=== PATIENT | female | born 1960 | race Caucasian/White ===

== ENCOUNTER 2017-02-06 17:41 | Observation (INO) | payer OTHER ==
[~2017-02-06] VITALS: Ht 167.6 cm; Wt 120.9 kg
[~2017-02-06 17:41] MED LIST: AMT10 PO; BNT/10 PO; CLON1TAB3 PO; DIPH-416 PO; ESCI10TA17 PO; PRLSR20 PO; PROP80TA2 PO; QUET-206 PO; RANI75TA7 PO; VERA120T15 PO
[2017-02-06] MEDS ORDERED: AMIT75TA2 PO (18:13)
[2017-02-06] MEDS ORDERED: ESCI1TAB10 PO (18:15)
[2017-02-06 18:17] LABS: BASO % 0.4 %; BASO ABS # 0.04 K/uL (0-0.2); COMPLETE YES; EOS % 2.5 %; HEMATOCRIT 40.5 % (37-47); IG% 0.2 %; LYMPH % 23.2 %; LYMPH ABS # 2.06 K/uL (1.2-3.4); MEAN CELL VOLUME 76.3 fL (80-100); MEAN CORPUSCULAR HEMOGLOBIN 23.4 pg (25-34); MEAN CORPUSCULAR HGB CONC 30.6 g/dl (32-36); MEAN PLATELET VOLUME 10.1 fL (7.4-10.4); NEUT % 63.7 %; PLATELET COUNT 455 K/uL (130-400); RED BLOOD COUNT 5.31 M/uL (4.2-5.4); WHITE BLOOD COUNT 8.89 K/uL (4.8-10.8)
[2017-02-06] MEDS ORDERED: INDSR160 PO (18:17)
[2017-02-06] MEDS ORDERED: QUET200T2 PO (18:19)
[2017-02-06] MEDS ORDERED: VERA180T PO (18:21)
[2017-02-06] MEDS ORDERED: PANT40TA2 PO (18:24)
[2017-02-06] MEDS ORDERED: ERGO500011 PO (18:24)
[2017-02-06] MEDS ORDERED: MULTTAB58 PO (18:27)
[2017-02-06 18:32] LABS: INR 0.9 (0.9-1.1); PARTIAL THROMBOPLASTIN RATIO 0.9
[2017-02-06 18:35] LABS: ALT/SGPT 21 U/L (12-78); AST/SGOT 15 U/L (15-37); BLOOD UREA NITROGEN 26 mg/dl (7-18); CARBON DIOXIDE 25 mmol/L (21-32); CHLORIDE 109 mmol/L (98-107); GLUCOSE 98 mg/dl (70-99); POTASSIUM 4.7 mmol/L (3.5-5.1); SODIUM 142 mmol/L (136-145)
--- NOTE | 2017-02-06 18:45 | DIAGNOSTIC IMAGING REPORT ---
CHEST ONE VIEW PORTABLE CLINICAL HISTORY: CHEST PAIN dyspnea COMPARISON STUDY: 09/15/2015 FINDINGS: The bones soft tissues and hemidiaphragms are normal. The cardiomediastinal silhouette is normal. The lungs are clear. The pulmonary vasculature is normal. IMPRESSION: Negative chest. Electronically signed by: Corey Jeong M.D. 02/06/2017 6:43 PM Dictated Date/Time: 02/06/2017 6:43 PM
[2017-02-06 18:46] LABS: ALKALINE PHOSPHATASE 161 U/L (45-117); THYROID STIMULATING HORMONE 0.955 uIu/ml (0.300-4.500)
[2017-02-06] MEDS ORDERED: ASPIRIN 81 MG CHEW PO STA (19:22)
--- NOTE | 2017-02-06 19:42 | EMERGENCY ROOM VISIT NOTE ---
History Report prepared by Jenna: Estela Mack Under the Supervision of: Dr. Vijay Barr M.D. First contact with patient: 17:45 Chief Complaint: SHORTNESS OF BREATH Stated Complaint: SOB Nursing Triage Summary: pt reports exertional sob since . + increased cough when lying down , reports hitting head 1 week ago and has had neck stiffness since that time History of Present Illness The patient is a 56 year old female who presents to the Emergency Room with complaints of worsening shortness of breath that started 2 days ago. The shortness of breath is worse with exertion. She is also experiencing a dry cough that is worse when lying down. She states that her muscles "feel like Jell -o." She denies fevers, hematochezia, and pain or swelling in her lower extremities. The patient states that she has a history of PVCs and has been experiencing increased palpitations recently. She denies any chest pain. The patient has a history of anxiety, but denies experiencing anything that has made her anxious recently. She denies any attempts to harm herself recently. She states that she has been taking her medications as prescribed and she has not missed any doses. The patient states that she hit the base of the right side of her head on a trellis one week ago. After hitting her head, the pain radiated down into her neck and into her right shoulder. Since then, she has been experiencing neck pain, neck stiffness, and bilateral shoulder pain. The patient denies any history of lung problems, including asthma. She states that she had a stroke at the age of 28, but denies any personal history of blood clots. The patient has a family history of heart disease. She states that her brother, who was very active and healthy, had a CO at the age of 50. The patient is post-menopausal and denies any chance of . The patient denies any history of thyroid problems, but states that she has not been tested for them recently. Source of History: patient Onset: 2 days ago Position: chest Quality: other (shortness of breath) Timing: worsening Associated Symptoms: + cough (dry ), + neck pain, + weakness (muscular, feel like Jell-O), No chest pain, No fevers, No hematochezia Note: palpitations, bilateral shoulder pain, neck stiffness, no pain or swelling in her lower extremities Review of Systems See HPI for pertinent positives & negatives. A total of 10 systems reviewed and were otherwise negative. Past Medical & Surgical Medical Problems: (1) Chest pain (2) Kidney stones (3) SOB (shortness of breath) (4) Stroke Old medical records were reviewed. Nurse's notes were reviewed and I agree with. Family History Cancer Diabetes mellitus Gallbladder disease Heart disease Hypertension Kidney disease Kidney stones Lung disease Social History Smoking Status: Never Smoker Alcohol Use: none Drug Use: none Marital Status: Housing Status: lives alone Current/Historical Medications Scheduled Amitriptyline Hcl (Elavil), 1 TAB PO HS Clonazepam (Klonopin), 1 MG PO QID Dicyclomine HCl (Dicyclomine HCl), 10 MG PO DAILY Ergocalciferol (Vitamin D 58855 Unit), 50,000 UNITS PO WK Escitalopram Oxalate (Lexapro), 20 MG PO DAILY Multiple Vitamin (Multivitamin), 1 TAB PO DAILY Pantoprazole (Pantoprazole Sodium), 40 MG PO QAM Propranolol Hcl (Inderal LA Cap), 160 MG PO DAILY Quetiapine Fumarate Xr (Seroquel Xr), 200 MG PO HS Verapamil Hcl (Calan Sr Ext Rel), 180 MG PO QAM Allergies Coded Allergies: Fluoxetine (Unverified Allergy, Unknown, HALLUCINATIONS, 02/06/17) Lorazepam (Verified Adverse Reaction, Mild, HALLUCINATIONS, 02/06/17) Physical Exam Vital Signs Date Time Temp Pulse Resp B/P Pulse Ox O2 Delivery O2 Flow Rate FiO2 02/06/17 19:46 63 17 97 02/06/17 19:33 66 16 138/81 96 02/06/17 19:33 138/81 02/06/17 19:16 65 21 95 02/06/17 18:46 64 17 96 02/06/17 18:41 68 18 131/71 95 02/06/17 18:34 66 02/06/17 18:16 97 Room Air 02/06/17 17:44 36.8 69 18 137/73 100 Room Air Physical Exam General: Well developed well nourished non-ill appearing middle-aged female in no acute distress, breathing comfortably on room air. Normal speech HEENT: Normal cephalic atraumatic. Pupils are equal round and reactive to light. Sclerae anicteric. Extraocular movements are intact. Oropharynx is pink with moist mucous membranes. No swelling of the mouth lips or tongue. Neck: Supple with a midline trachea. No meningeal signs or stiffness, no JVD or bruits. No Stridor. Chest: Clear to auscultation bilaterally. No wheezes or rhonchi. No increased work of breathing. Heart: regular rate and rhythm. Abdomen: Soft nontender, nondistended without rebound guarding or rigidity. Extremities: No cyanosis clubbing or edema. No calf tenderness or assymetry Spine/Back. Non tender to palpation. No CVA tenderness Skin: Good turgor without rashes. Neurologic exam: Cranial nerves two through 12 are intact. Motor and sensation are intact and symmetrical throughout. Psych: Normal thought process and affect. Intermittently teary eyed when talking about her brother. Medical Decision & Procedures ER Provider Diagnostic Interpretation: X-ray results as stated below per interpretation by me and the radiologist: CHEST ONE VIEW PORTABLE FINDINGS: The bones soft tissues and hemidiaphragms are normal. The cardiomediastinal silhouette is normal. The lungs are clear. The pulmonary vasculature is normal. IMPRESSION: Negative chest. Electronically signed by: Corey Jeong M.D. 02/06/2017 6:43 PM Dictated Date/Time: 02/06/2017 6:43 PM Laboratory Results 02/06/17 18:05 Red Blood Count 5.31, Mean Corpuscular Volume 76.3, Mean Corpuscular Hemoglobin 23.4, Mean Corpuscular Hemoglobin Concent 30.6, Mean Platelet Volume 10.1, Neutrophils (%) (Auto) 63.7, Lymphocytes (%) (Auto) 23.2, Monocytes (%) (Auto) 10.0, Eosinophils (%) (Auto) 2.5, Basophils (%) (Auto) 0.4, Neutrophils # (Auto ) 5.66, Lymphocytes # (Auto) 2.06, Monocytes # (Auto) 0.89, Eosinophils # (Auto ) 0.22, Basophils # (Auto) 0.04 02/06/17 18:05 Test 02/06/17 18:05 02/06/17 18:13 White Blood Count 8.89 K/uL (4.8-10.8) Red Blood Count 5.31 M/uL (4.2-5.4) Hemoglobin 12.4 g/dL (12.0-16.0) Hematocrit 40.5 % (37-47) Mean Corpuscular Volume 76.3 fL (80-100) Mean Corpuscular Hemoglobin 23.4 pg (25-34) Mean Corpuscular Hemoglobin Concent 30.6 g/dl (32-36) Platelet Count 455 K/uL (130-400) Mean Platelet Volume 10.1 fL (7.4-10.4) Neutrophils (%) (Auto) 63.7 % Lymphocytes (%) (Auto) 23.2 % Monocytes (%) (Auto) 10.0 % Eosinophils (%) (Auto) 2.5 % Basophils (%) (Auto) 0.4 % Neutrophils # (Auto) 5.66 K/uL (1.4-6.5) Lymphocytes # (Auto) 2.06 K/uL (1.2-3.4) Monocytes # (Auto) 0.89 K/uL (0.11-0.59) Eosinophils # (Auto) 0.22 K/uL (0-0.5) Basophils # (Auto) 0.04 K/uL (0-0.2) RDW Standard Deviation 49.1 fL (36.4-46.3) RDW Coefficient of Variation 17.6 % (11.5-14.5) Immature Granulocyte % (Auto) 0.2 % Immature Granulocyte # (Auto) 0.02 K/uL (0.00-0.02) Prothrombin Time 10.0 SECONDS (9.0-12.0) Prothromb Time International Ratio 0.9 (0.9-1.1) Activated Partial Thromboplast Time 24.4 SECONDS (21.0-31.0) Partial Thromboplastin Ratio 0.9 Anion Gap 8.0 mmol/L (3-11) Est Creatinine Clear Calc Drug Dose 48.1 ml/min Estimated GFR () 41.6 Estimated GFR (Non- 35.9 BUN/Creatinine Ratio 16.0 (10-20) Calcium Level 8.0 mg/dl (8.5-10.1) Magnesium Level 2.7 mg/dl (1.8-2.4) Total Bilirubin 0.4 mg/dl (0.2-1) Direct Bilirubin 0.1 mg/dl (0-0.2) Aspartate Amino Transf (AST/SGOT) 15 U/L (15-37) Alanine Aminotransferase (ALT/SGPT) 21 U/L (12-78) Alkaline Phosphatase 161 U/L (45-117) Total Creatine Kinase 74 U/L (26-192) Creatine Kinase MB < 0.5 ng/ml (0.5-3.6) Creatine Kinase MB Ratio (0-3.0) Total Protein 7.7 gm/dl (6.4-8.2) Albumin 3.9 gm/dl (3.4-5.0) Lipase 139 U/L (73-393) Thyroid Stimulating Hormone (TSH) 0.955 uIu/ml (0.300-4.500) Lyme Disease IgG Antibody NEG (NEG) Bedside D-Dimer 384 ng/mlFEU (0-450) Bedside Troponin I 0.000 ng/ml (0-0.045) EN-Dcq-L-Type Natriuretic Peptide 77 pg/ml (0-900) Laboratory studies as stated above per my review. Medications Administered Medications (Trade) Dose Ordered Sig/Kat Route Start Time Stop Time Status Last Admin Dose Admin Aspirin (Aspirin Chew) 324 mg NOW STAT PO 02/06/17 19:22 02/06/17 19:23 DC 02/06/17 19:33 324 MG ECG Indication: SOB/dyspnea Rate (beats per minute): 64 Rhythm: normal sinus Findings: T-wave inversion (Anterior, Lateral) Comparison ECG Date: 04/28/2009 Change: T-wave inversions are new ED Course 1750: Past medical records reviewed. The patient was evaluated in room B3, and a complete history and physical examination were performed. 1917: Upon reevaluation, the patient is resting comfortably. I discussed the results and treatment plan with the patient. She verbalized agreement of the treatment plan. The patient will be evaluated for further management. 1921: Ordered Aspirin 324 mg PO 1930: Discussed patient's case with Dr. Truman Rivera. The patient will be evaluated for further treatment and disposition. Medical Decision Differentials include, but are not limited to; acute coronary syndrome, arrhythmia, congestive heart failure, PE, pneumonia, anxiety. This patient comes in as described above. She was placed in room B3. She is here for treatment and evaluation of shortness of breath. She has not felt well. She felt very tired over last couple days. He has had chest discomfort. IV access established, EKG and chest x-ray was obtained. Multiple blood testing was obtained. Chest x-ray was unremarkable. EKG does have some T-wave inversions anteriorly inferiorly which are new compared her old EKG. She has had some baseline renal insufficiency with a creatinine of 1.6. Her troponin and CK-MB were not elevated. Her d-dimer is within normal limits and a low pretest probably said he makes PE highly unlikely. Her brother did have an CO at age 51. In light of this, I do think she needs to be admitted to rule out a cardiac event. I have consulted Dr. Gross who saw the patient the ER will admit her for these measures. Consults Time Called: 1923 Consulting Physician: Dr. Truman Rivera Returned Call: 1930 Discussed patient's case with Dr. Truman Rivera. The patient will be evaluated for further treatment and disposition. Impression Primary Impression: Precordial chest pain Additional Impression: Shortness of breath Scribe Attestation The scribe's documentation has been prepared under my direction and personally reviewed by me in its entirety. I confirm that the note above accurately reflects all work, treatment, procedures, and medical decision making performed by me. Departure Information Dispostion Being Evaluated By Hospitalist Referrals Carol Douglass M.D. (PCP) Patient Instructions [facility] Problem Qualifiers
[2017-02-06] MEDS ORDERED: IV FLUIDS COMPLETED PRN (20:45)
[2017-02-06] MEDS ORDERED: SODIUM CHLORIDE 0.45% 1000ML 1,000 ML IV SCH (21:00)
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
--- NOTE | 2017-02-06 21:15 | DIAGNOSTIC IMAGING REPORT ---
CERVICAL SPINE CT CT DOSE: 1071.19 mGy.cm HISTORY: Pain neck pain TECHNIQUE: Multiaxial CT images of the cervical spine were performed and reformatted in the sagittal and coronal plane without the use of contrast. COMPARISON: None. FINDINGS: No fractures. No subluxation. Prevertebral soft tissues and the C1-C2 interval are intact. No pneumothorax. Mild degenerative intervertebral disc change C4-C6. Vertebral body stature is normal. Mild anterior and posterior osteophytic change primarily at C4-C5 and C5-C6. IMPRESSION: Moderate degenerative change of the mid cervical region. No acute bony abnormality. Posterior osteophytic change and narrowing of the left neural foramina at C4-C5 and to lesser extent C5-C6 Electronically signed by: Corey Jeong M.D. 02/06/2017 9:14 PM Dictated Date/Time: 02/06/2017 9:11 PM
[2017-02-06 21:30] VITALS: BP 118/53; PULSE 63; TEMP 37; O2SAT 97; Ht 167.6 cm; Wt 120.9 kg
[2017-02-06] MEDS ORDERED: SODIUM CHLORIDE 0.45% 1000ML 1,000 ML IV ONE (21:30)
[2017-02-06] MEDS ORDERED: ONDANSETRON INJ 2 MG/ML 2 ML VIAL IV PRN (21:30)
[2017-02-06] MEDS ORDERED: HYDROmorphone INJ 1 MG/ML SYR IV PRN (21:30)
[2017-02-06] MEDS ORDERED: NITROGLYCERIN 0.4 MG SL PER TAB CHARGE SL PRN (21:30)
[2017-02-06] MEDS ORDERED: ACETAMINOPHEN 325 MG TAB PO PRN (21:30)
[2017-02-06] MEDS ORDERED: TRAMADOL HCL 50 MG TAB PO PRN (21:30)
[2017-02-06] MEDS ORDERED: CLONAZEPAM 1 MG TAB PO ONE ×2 (22:00→23:27)
[2017-02-06] MEDS ORDERED: PANTOprazole SOD 40 MG TAB PO ONE (22:00)
[2017-02-06] MEDS ORDERED: AMITRIPTYLINE HCL 25 MG TAB PO SCH (22:00)
[2017-02-06] MEDS ORDERED: QUETIAPINE FUMARATE 200 MG TABCR PO SCH (22:00)
[2017-02-06] MEDS: HEPARIN SOD 5000 UNIT/0.5 ML CARP SQ SCH (23:04)
[2017-02-07 00:10] VITALS: BP 111/74; PULSE 58; TEMP 36.8; O2SAT 97
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
[2017-02-07 03:44] VITALS: BP 104/62; PULSE 61; TEMP 36.6; O2SAT 93
[2017-02-07] MEDS: HEPARIN SOD 5000 UNIT/0.5 ML CARP SQ SCH ×2 (05:51→14:54)
[2017-02-07 06:03] LABS: BASO % 0.5 %; BASO ABS # 0.03 K/uL (0-0.2); COMPLETE YES; EOS % 2.8 %; HEMATOCRIT 36.1 % (37-47); IG% 0.2 %; LYMPH % 35.8 %; LYMPH ABS # 2.16 K/uL (1.2-3.4); MEAN CELL VOLUME 76.6 fL (80-100); MEAN CORPUSCULAR HEMOGLOBIN 22.9 pg (25-34); MEAN CORPUSCULAR HGB CONC 29.9 g/dl (32-36); MEAN PLATELET VOLUME 9.6 fL (7.4-10.4); MONO % 9.3 %; NEUT % 51.4 %; PLATELET COUNT 332 K/uL (130-400); RED BLOOD COUNT 4.71 M/uL (4.2-5.4); WHITE BLOOD COUNT 6.04 K/uL (4.8-10.8)
[2017-02-07 06:20] LABS: ALT/SGPT 17 U/L (12-78); AST/SGOT 13 U/L (15-37); BLOOD UREA NITROGEN 25 mg/dl (7-18); BUN/CREATININE RATIO 15.4 (10-20); CALCIUM 8.2 mg/dl (8.5-10.1); CARBON DIOXIDE 27 mmol/L (21-32); CHLORIDE 110 mmol/L (98-107); GLUCOSE 92 mg/dl (70-99); POTASSIUM 4.6 mmol/L (3.5-5.1); SODIUM 144 mmol/L (136-145)
[2017-02-07 06:25] LABS: ALKALINE PHOSPHATASE 134 U/L (45-117)
[2017-02-07 07:29] VITALS: BP 100/63; PULSE 62; TEMP 36.6; O2SAT 93
[2017-02-07] MEDS ORDERED: PANTOprazole SOD 40 MG TAB PO SCH (09:00)
[2017-02-07] MEDS ORDERED: ESCITALOPRAM OXALATE 20 MG TAB PO SCH (09:00)
[2017-02-07] MEDS ORDERED: VERAPAMIL HCL 180 MG TABCR PO SCH (09:00)
[2017-02-07] MEDS ORDERED: PROPRANOLOL HCL 80 MG LA CAP PO SCH (09:00)
[2017-02-07] MEDS ORDERED: CLONAZEPAM 1 MG TAB PO SCH ×3 (09:00→21:00)
[2017-02-07] MEDS ORDERED: MULTIVITAMIN TAB PO SCH (09:00)
--- NOTE | 2017-02-07 09:35 | ECHOCARDIOGRAM REPORT ---
*NOTICE TO RECEIVING CONSTITUTION PARTY AGENCY This information is strictly Confidential and protected under [place] law. [place] law prohibits you from making any further disclosure of this information unless further disclosure is expressly permitted by the written consent of the person to whom it pertains or is authorized by law. A general authorization for the release of medical or other information is not sufficient for this purpose. Hospital accepts no responsibility if the information is made available to any other person, INCLUDING THE PATIENT. Interpretation Summary * Name: HEYDI GOMEZ Study Date: 02/07/2017 06:58 AM BP: 104/62 mmHg * Patient Location: C.2T\S\S232\S\1 HR: 60 * : 1960 (M/d/yyyy) Gender: Female Height: 66 in * Age: 56 yrs Ethnicity: CA Weight: 226 lb * Ordering Physician: Isiah Laughlin * Referring Physician: Self, Referred * Performed By: Isiah Haywood RDCS * * Reason For Study: Chest pain * BSA: 2.1 m2 * -- Conclusions -- * Normal LV chamber size with mild concentric LVH. * Normal LV systolic function, EF 60-65%. * No segmental left ventricular wall motion abnormalities are noted. * Grade II diastolic dysfunction. * Aortic valve sclerosis mild, without significant aortic valvular stenosis. Procedure Details * A complete two-dimensional transthoracic echocardiogram was performed (2D, M-mode, Doppler and color flow Doppler). * The study was technically adequate. Left Ventricle * The left ventricle is normal in size. * There is mild concentric left ventricular hypertrophy. * Left ventricular systolic function is normal. * No segmental left ventricular wall motion abnormalities are noted. * Ejection Fraction = 60-65%. * The left ventricular wall motion is normal. Right Ventricle * The right ventricular cavity size is normal (basal dimension <4.2 cm in right ventricular apical 4-chamber view). * The right ventricular systolic function is normal as assessed by tricuspid annular plane systolic excursion (TAPSE) (normal >1.5 cm). Atria * The left atrium is mildly dilated. * Right atrial size is normal. * No ASD detected; PFO is not assessed. Mitral Valve * The mitral valve is normal in structure and function. Tricuspid Valve * The tricuspid valve is normal in structure and function. Aortic Valve * The aortic valve is trileaflet. * Aortic valve sclerosis mild, without significant aortic valvular stenosis. * There is no significant aortic regurgitation. Pulmonic Valve * The pulmonary valve is not well seen, but the Doppler examination is normal without significant regurgitation or stenosis. Great Vessels * The aortic root and proximal ascending aorta are normal sized. Pericardium/Pleural * Trivial apical pericardial effusion without hemodynamic compromise. Fat pad present. Left Ventricular Diastolic Function * Diastolic dysfunction, Grade II (pseudonormalization pattern). MMode 2D Measurements and Calculations IVSd 1.3 cm IVSs 1.7 cm LVIDd 4.5 cm LVIDs 2.9 cm LVPWd 1.3 cm LVPWs 1.7 cm IVS/LVPW 0.99 FS 36.1 % EDV(Teich) 93.0 ml ESV(Teich) 31.7 ml EF(Teich) 65.9 % EDV(cubed) 91.8 ml ESV(cubed) 23.9 ml EF(cubed) 74.0 % % IVS thick 35.5 % % LVPW thick 29.3 % LV mass(C)d 219.3 grams LV mass(C)dI 104.1 grams/m\S\2 LV mass(C)s 186.8 grams LV mass(C)sI 88.6 grams/m\S\2 SV(Teich) 61.3 ml SI(Teich) 29.1 ml/m\S\2 SV(cubed) 67.9 ml SI(cubed) 32.2 ml/m\S\2 EPSS 0.76 cm Ao root diam 2.9 cm Ao root area 6.7 cm\S\2 ACS 1.9 cm LA dimension 4.5 cm asc Aorta Diam 3.2 cm LA/Ao 1.5 LVOT diam 2.0 cm LVOT area 3.2 cm\S\2 LVAd ap4 17.4 cm\S\2 LVLd ap4 6.8 cm EDV(MOD-sp4) 37.0 ml LVAs ap4 8.7 cm\S\2 LVLs ap4 5.5 cm ESV(MOD-sp4) 12.0 ml EF(MOD-sp4) 67.6 % LVAd ap2 17.9 cm\S\2 LVLd ap2 6.3 cm EDV(MOD-sp2) 43.0 ml LVAs ap2 10.2 cm\S\2 LVLs ap2 5.6 cm ESV(MOD-sp2) 16.0 ml EF(MOD-sp2) 62.8 % SV(MOD-sp4) 25.0 ml SI(MOD-sp4) 11.9 ml/m\S\2 SV(MOD-sp2) 27.0 ml SI(MOD-sp2) 12.8 ml/m\S\2 Doppler Measurements and Calculations MV E max kristel 69.1 cm/sec MV A max kristel 65.6 cm/sec MV E/A 1.1 MV dec time 0.20 sec Ao V2 max 130.9 cm/sec Ao max PG 6.9 mmHg Ao max PG (full) 2.3 mmHg KANNAN(V,A) 2.6 cm\S\2 KANNAN(V,D) 2.6 cm\S\2 LV V1 max PG 4.6 mmHg LV V1 max 106.7 cm/sec PA V2 max 83.1 cm/sec PA max PG 2.8 mmHg
[2017-02-07 11:14] VITALS: BP 108/62; PULSE 62; TEMP 36.9; O2SAT 95
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
[2017-02-07 15:18] VITALS: BP 123/69; PULSE 58; TEMP 37; O2SAT 97
[2017-02-07 15:28] VITALS: BP_SYST 114; BP_SYST 116; BP_DIAS 72; BP_DIAS 79
[2017-02-07] MEDS ORDERED: VERA120C2 PO (15:35)
--- NOTE | 2017-02-07 15:38 | Discharge Instructions ---
Discharge Instructions Date of Service February 07, 2017. Admission Reason for Admission: Chest Pain; Sob Discharge Discharge Diagnosis / Problem: Weakness Discharge Goals Goal(s): Prevent Disease Progression Activity Recommendations Activity Limitations: per Instructions/Follow-up section . Instructions / Follow-Up Instructions / Follow-Up Please adjust to new dose of Verapamil and take all medications as instructed. You have a follow-up appointment with Dr. Douglass set for , 02/11 @ 11:20 for follow-up from this hospitalization. It may be prudent to see a Voice Studies Director as outpatient to readdress the palpitation issues you are having. Please bring all paperwork with you from discharge. It was a pleasure taking care of you! Call if you have any questions or problems. You can reach a [facility] hospitalist on duty at [facility] 24 hours a day by calling [phone]. Take care of yourself. Mell Sahu, [facility] Hospitalist Current Hospital Diet Patient's current hospital diet: Regular Diet Discharge Diet Recommended Diet: Regular Diet Pending Studies Studies pending at discharge: no Medical Emergencies . Who to Call and When: Medical Emergencies: If at any time you feel your situation is an emergency, please call 911 immediately. . Non-Emergent Contact Non-Emergency issues call your: Primary Care Provider . . "Provider Documentation" section prepared by Mell Sahu. . VTE Core Measure Inpt VTE Proph given/why not?: Unfractionated heparin SQ
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
== END 2017-02-07 17:00 | disposition home or self-care (01) ==
LOC: ENRESERVTM → ENRESERVDT → C.EDB 17:41 → C.2T 19:52
PROVIDERS: ADMIT Hospitalist; ATTEND Hospitalist
DX: R53.1 Weakness (principal); R06.02 Shortness of breath; F32.9 Major depressive disorder, single episode, unspecified; E66.01 Morbid (severe) obesity due to excess calories; E55.9 Vitamin D deficiency, unspecified; M50.30 Other cervical disc degeneration, unspecified cervical region; I12.9 Hypertensive chronic kidney disease with stage 1 through stage 4 chronic kidney disease, or unspecified chronic kidney disease; N18.3 Chronic kidney disease, stage 3 (moderate); F41.9 Anxiety disorder, unspecified; D64.89 Other specified anemias; Z98.84 Bariatric surgery status; Z86.73 Personal history of transient ischemic attack (TIA), and cerebral infarction without residual deficits; Z80.9 Family history of malignant neoplasm, unspecified; Z83.3 Family history of diabetes mellitus; Z82.49 Family history of ischemic heart disease and other diseases of the circulatory system; Z84.1 Family history of disorders of kidney and ureter; Z83.6 Family history of other diseases of the respiratory system

== ENCOUNTER 2022-08-05 11:57 | Inpatient (IN) ==
[2022-08-05 14:19] LABS: Basophils # (auto) 0.04 K/uL (0-0.2); Basophils % (auto) 0.3 %; Eosinophils # (auto) 0.04 K/uL (0-0.50); Eosinophils % (auto) 0.3 %; Hemoglobin 12.2 g/dl (12.0-16.0); Immature Granulocytes # (auto) 0.04 K/uL (0.00-0.02); Immature Granulocytes % (auto) 0.3 %; Lymphocytes # (auto) 0.68 K/uL (1.2-3.4); Lymphocytes % (auto) 5.5 %; Mean Corpuscular Hemoglobin 24.6 pg (25.0-34.0); Mean Corpuscular Hgb Conc 31.3 g/dL (32.0-36.0); Mean Corpuscular Volume 78.6 fL (80.0-100.0); Mean Platelet Volume 9.4 fL (9.4-12.3); Monocytes % (auto) 8.1 %; Neutrophils # (auto) 10.55 K/uL (1.4-6.5); Neutrophils % (auto) 85.5 %; Platelet Count 292 K/uL (130-400); RDW Coefficient of Variation 15.2 % (11.5-14.5); RDW Standard Deviation 42.6 fL (36.4-46.3); Red Blood Count 4.96 M/uL (3.93-5.22); White Blood Count 12.35 K/ul (4.8-10.8)
[2022-08-05 14:42] LABS: Albumin Globulin Ratio 1.3 (0.9-2); Albumin Level 3.9 gm/dl (3.4-5.0); BUN Creatinine Ratio 10.7 (10-20); Bilirubin,Total 1.2 mg/dl (0.2-1.0); Calcium 8.9 mg/dl (8.5-10.1); Creatinine Clr Calc Pharmacy 63.7 ml/min; Est GFR (African American) 51.2 ml/min; Est GFR (Non-African American) 44.1 ml/min; Potassium 4.3 mmol/L (3.5-5.1); Total Protein 6.9 gm/dl (6.0-8.3)
[2022-08-05] MEDS ORDERED: SODIUM CHLORIDE 0.9% 1000ML 1,000 ML IV ONE (14:55)
[2022-08-05] MEDS ORDERED: ONDANSETRON INJ 2 MG/ML 2 ML VIAL IV STA (14:55)
[2022-08-05] MEDS ORDERED: ACETAMINOPHEN 325 MG TAB PO STA (14:55)
--- NOTE | 2022-08-05 14:58 | Emergency Department Note ---
Impression & Plan Viral URI, Shortness of breath, Abdominal pain, Abnormal ECG, Vomiting ED Provider Note NAME: HEYDI GOMEZ AGE: 61 SEX: F : 1960 ARRIVES VIA: Walk-In INFORMANT: Patient ED PROVIDER(S): Frankie Dominguez DO CHIEF COMPLAINT: cough vomiting HPI: Patient is a 61-year-old female who presents ER with a past medical history of PVCs, PACs, morbid obesity who presents to the ER for symptoms that started this past Wednesday. She admits to cough, congestion, and runny nose. She admits to feeling hot and cold. No recorded fevers. She has right upper quadra nt abdominal pain only with coughing. She denies any chest pain or shortness of breath. She also admits to being dizzy over the past 24 hours. Only present with movement of the head. No weakness or numbness in the arms or legs. Vomiting is present mainly when she is tries to drink something. Does also admit to diffuse myalgias and arthralgias. ROS: See above HPI for pertinent positives & negatives. A total of 10 systems reviewed and were otherwise negative. PAST MEDICAL HISTORY:See Below PAST SURGICAL HISTORY:See Below FAMILY HISTORY:See Below SOCIAL HISTORY:See Below HOME MEDICATIONS:See Below ALLERGIES:See Below VITALS:See Below PHYSICAL EXAMINATION: GENERAL: Sitting up in bed, alert, disheveled, morbidly obese, slightly ill- appearing EYE EXAM: normal conjunctiva. PERRL and with a disconjugate gaze which is old per patient with the left eye OROPHARYNX: no exudate, no erythema, lips, buccal mucosa, and tongue normal and mucous membranes are moist NECK: supple, no nuchal rigidity, no adenopathy, non-tender LUNGS: Clear to auscultation. Normal chest wall mechanics HEART: no murmurs, S1 normal and S2 normal ABDOMEN: abdomen soft, mild tenderness in right upper quadrant, normo-active bowel sounds, no masses, no rebound or guarding. UPPER EXTREMITIES: upper extremities are grossly normal. LOWER EXTREMITIES: No pitting edema. NEURO EXAM: Normal sensorium, cranial nerves II-XII intact, normal speech, no weakness of arms, no weakness of legs. No drift. Finger to nose intact. Gross sensation intact. Ambulates without difficulty. MEDICAL DECISION MAKING: Patient is a 61-year-old female who presents to the ER for the above stated complaint. IV was established blood work was obtained. Labs show mild leukocytosis 12,000. No significant anemia. BMP with T bili at 1.2. LFTs were unremarkable. Lipase is normal. UA was contaminated. Influenza COVID and RSV were negative. CT abdomen pelvis and head were negative. Chest x-ray unremarka ble. She is otherwise neurologically intact. EKG shows new T wave inversion in comparison to 2017. Troponin was added on as I called and discussed with the lab as it was not initially done. Still pending upon admission. Patient was given IV fluids and Zofran. She was updated bedside. I do favor the majority of his symptoms are likely related to a viral upper respiratory infection. Still not keeping anything down while in the ER. Did discuss with the hospitalist for further observation. Triage Nursing notes reviewed. Limited review of prior medical records performed Vital Signs: reviewed and remarkable for febrile Differential diagnosis: Differential diagnosis includes etiologies such as sepsis, UTI, pneumonia, metabolic, electrolyte abnormalities, cardiac sources, intracerebral event, toxicologic, neurological, as well as others were entertained. ER treatment provided: See below Diagnostics interpreted by me: ECG: Sinus rhythm rate of 79 Normal axis No PVCs T wave inversion V1 through V6 QTC 428 T wave changes are new from 2017 Cardiac Monitoring: An order was placed for continuous cardiac monitoring. The monitor shows a rate of 80 with sinus rhythm. Laboratory studies: As stated above and show below. Imaging studies: CT head was negative CT abdomen pelvis is unremarkable Portable AP upright 1 view of the chest unremarkable Consultation(s): Discussed with Helene for further evaluation Procedures: none Critical Care: None Past Med/Surg History Medical History (Updated 08/05/22 @ 18:38 by Franike Dominguez DO) Diabetes Per records Last Hgb A1C 6.4 per 10/30/20 PCP note. Diet controlled KATHARINE (generalized anxiety disorder) Hx of supraventricular tachycardia Hyperlipidemia Kidney stones MDD (major depressive disorder) Migraine Morbid obesity PVC (premature ventricular contraction) Stroke Around 1989- residual mild weakness on right side. Surgical History (Updated 08/05/22 @ 17:00 by Maggy Urbina PA-C) History of arthroscopy of left shoulder History of x 2 Hx of arthroscopy of right knee Hx of dilation and curettage x 2 Hx of gastric bypass Family History (Updated 08/05/22 @ 16:59 by Maggy Urbina PA-C) Other Cancer Diabetes Dyslipidemia Heart disease Hypertension Social History Smoking Status: Never smoker Second Hand Exposure: No; Hx Alcohol Use: No Hx Substance Use: No Preferred Language: Yemeni Communication Ability: Effective Inside Wireman Required: No Beliefs That Will Affect Care: None Current Living Situation: Alone Feels Safe at Home: Yes Assistive Devices: None Allergies Allergies Allergy/AdvReac Type Severity Reaction Status Date / Time potassium AdvReac Severe Cardiac Verified 08/05/22 16:27 issues fluoxetine AdvReac Intermediate Hallucinati Verified 08/05/22 16:27 ons lorazepam AdvReac Intermediate Hallucinati Verified 08/05/22 16:27 ons Home Meds Home Medications Medication Instructions Recorded Confirmed atorvastatin 10 mg tablet 10 mg PO HS 05/09/19 08/05/22 ergocalciferol (vitamin D2) 1,250 50,000 unit PO WK 05/09/19 08/05/22 mcg (50,000 unit) capsule (Vitamin D2) escitalopram oxalate 20 mg tablet 20 mg PO HS 05/09/19 08/05/22 metoprolol succinate 50 mg 50 mg PO HS 05/09/19 08/05/22 tablet,extended release 24 hr quetiapine 200 mg tablet 200 mg PO HS 05/09/19 08/05/22 verapamil 120 mg 24 hr 120 mg PO HS 05/09/19 08/05/22 capsule,extended release gabapentin 300 mg capsule 300 mg PO HS 08/05/22 08/05/22 melatonin 10 mg tablet 10 mg PO HS PRN Sleep 08/05/22 08/05/22 Results & Data (ED) Vital Signs Vital Signs - 24 hr 08/05/22 12:30 08/05/22 14:47 08/05/22 15:15 Temperature 36.8 C 38 C H 37.9 C H Temperature Source Temporal Artery Scan Oral Oral Pulse Rate 89 Pulse Rate [Right Brachial] 80 Pulse Rate from SpO2 Sensor Respiratory Rate 18 17 Respiratory Effort / Characteristics Non-Labored Spontaneous Respiratory Depth Normal Respiratory Pattern Regular Blood Pressure 150/65 H Blood Pressure [Right Arm] 148/91 H Blood Pressure Mean 93 Blood Pressure Mean [Right Arm] 110 Pulse Oximetry 94 96 Oxygen Delivery Method Room Air Room Air Sepsis Recent Fever Within 48 Hours No Sepsis New/Unexplained Change in Mental Status No Sepsis Action Taken by Nursing No Action Required 08/05/22 16:05 08/05/22 16:30 08/05/22 17:00 Temperature 37.1 C Temperature Source Oral Pulse Rate 69 Pulse Rate [Right Brachial] 70 Pulse Rate from SpO2 Sensor 69 Respiratory Rate 22 17 Respiratory Effort / Characteristics Respiratory Depth Respiratory Pattern Blood Pressure 108/60 Blood Pressure [Right Arm] 120/68 Blood Pressure Mean 76 Blood Pressure Mean [Right Arm] 85 Pulse Oximetry 96 94 Oxygen Delivery Method Room Air Sepsis Recent Fever Within 48 Hours Sepsis New/Unexplained Change in Mental Status Sepsis Action Taken by Nursing 08/05/22 17:00 08/05/22 17:30 08/05/22 18:00 Temperature Temperature Source Pulse Rate 69 69 Pulse Rate [Right Brachial] Pulse Rate from SpO2 Sensor 69 67 Respiratory Rate 15 21 Respiratory Effort / Characteristics Respiratory Depth Respiratory Pattern Blood Pressure 127/53 L Blood Pressure [Right Arm] Blood Pressure Mean 77 Blood Pressure Mean [Right Arm] Pulse Oximetry 96 97 Oxygen Delivery Method Sepsis Recent Fever Within 48 Hours Sepsis New/Unexplained Change in Mental Status Sepsis Action Taken by Nursing 08/05/22 18:00 08/05/22 18:30 Temperature Temperature Source Pulse Rate 74 65 Pulse Rate [Right Brachial] Pulse Rate from SpO2 Sensor 68 66 Respiratory Rate 15 17 Respiratory Effort / Characteristics Respiratory Depth Respiratory Pattern Blood Pressure Blood Pressure [Right Arm] Blood Pressure Mean Blood Pressure Mean [Right Arm] Pulse Oximetry 96 96 Oxygen Delivery Method Room Air Sepsis Recent Fever Within 48 Hours Sepsis New/Unexplained Change in Mental Status Sepsis Action Taken by Nursing Laboratory Data Result diagrams: 08/05/22 14:05 08/05/22 14:05 Lab Results 08/05/22 08/05/22 08/05/22 Range/Units 14:05 14:05 15:20 WBC 12.35 H (4.8-10.8) K/ul RBC 4.96 (3.93-5.22) M/uL Hgb 12.2 (12.0-16.0) g/dl Hct 39.0 (34.1-44.9) % MCV 78.6 L (80.0-100.0) fL MCH 24.6 L (25.0-34.0) pg MCHC 31.3 L (32.0-36.0) g/dL RDW Std Deviation 42.6 (36.4-46.3) fL RDW Coeff of Rebecca 15.2 H (11.5-14.5) % Plt Count 292 (130-400) K/uL MPV 9.4 (9.4-12.3) fL Immature Gran % (Auto) 0.3 % Neut % (Auto) 85.5 % Lymph % (Auto) 5.5 % Tripp % (Auto) 8.1 % Eos % (Auto) 0.3 % Baso % (Auto) 0.3 % Neut # (Auto) 10.55 H (1.4-6.5) K/uL Lymph # (Auto) 0.68 L (1.2-3.4) K/uL Tripp # (Auto) 1.00 H (0.24-0.82) K/uL Eos # (Auto) 0.04 (0-0.50) K/uL Baso # (Auto) 0.04 (0-0.2) K/uL Immature Gran # (Auto) 0.04 H (0.00-0.02) K/uL Sodium 136 (136-145) mmol/L Potassium 4.3 (3.5-5.1) mmol/L Chloride 104 (98-107) mmol/L Carbon Dioxide 23 (21-32) mmol/L Anion Gap 9 (3-11) BUN 14 (6-23) mg/dl Creatinine 1.31 H (0.6-1.2) mg/dl Est Cr Clr Drug Dosing 63.7 ml/min Est GFR ( Amer) 51.2 ml/min Est GFR (Non-Af Amer) 44.1 ml/min BUN/Creatinine Ratio 10.7 (10-20) Glucose 141 H (70-99(Fasting)) mg/dl Calcium 8.9 (8.5-10.1) mg/dl Total Bilirubin 1.2 H (0.2-1.0) mg/dl AST 12 L (13-39) U/L ALT 14 (7-52) U/L Alkaline Phosphatase 84 (34-104) U/L Total Protein 6.9 (6.0-8.3) gm/dl Albumin 3.9 (3.4-5.0) gm/dl Globulin 3.0 (2.5-4.0) gm/dl Albumin/Globulin Ratio 1.3 (0.9-2) Lipase 11 (11-82) U/L Urine Color Urine Appearance (Clear) Urine pH (4.5-7.5) Ur Specific [place] (1.000-1.030) Urine Protein (Negative) Urine Glucose (UA) (Negative) Urine Ketones (Negative) Urine Blood (Negative) Urine Nitrite (Negative) Urine Bilirubin (Negative) Urine Urobilinogen (Negative) Ur Leukocyte Esterase (Negative) Urine WBC (Auto) (0-5) /hpf Urine RBC (Auto) (0-4) /hpf U Hyaline Cast (Auto) (0-5) /lpf U Epithel Cells (Auto) (0-5) /lpf Urine Bacteria (Auto) (Negative) SARS-CoV-2 (PCR) NEGATIVE (Negative) Influenza Type A (PCR) Negative (Neg) Influenza Type B (PCR) Negative (Neg) RSV (RT-PCR) Negative (Neg) 08/05/22 Range/Units 15:20 WBC (4.8-10.8) K/ul RBC (3.93-5.22) M/uL Hgb (12.0-16.0) g/dl Hct (34.1-44.9) % MCV (80.0-100.0) fL MCH (25.0-34.0) pg MCHC (32.0-36.0) g/dL RDW Std Deviation (36.4-46.3) fL RDW Coeff of Rebecca (11.5-14.5) % Plt Count (130-400) K/uL MPV (9.4-12.3) fL Immature Gran % (Auto) % Neut % (Auto) % Lymph % (Auto) % Tripp % (Auto) % Eos % (Auto) % Baso % (Auto) % Neut # (Auto) (1.4-6.5) K/uL Lymph # (Auto) (1.2-3.4) K/uL Tripp # (Auto) (0.24-0.82) K/uL Eos # (Auto) (0-0.50) K/uL Baso # (Auto) (0-0.2) K/uL Immature Gran # (Auto) (0.00-0.02) K/uL Sodium (136-145) mmol/L Potassium (3.5-5.1) mmol/L Chloride (98-107) mmol/L Carbon Dioxide (21-32) mmol/L Anion Gap (3-11) BUN (6-23) mg/dl Creatinine (0.6-1.2) mg/dl Est Cr Clr Drug Dosing ml/min Est GFR ( Amer) ml/min Est GFR (Non-Af Amer) ml/min BUN/Creatinine Ratio (10-20) Glucose (70-99(Fasting)) mg/dl Calcium (8.5-10.1) mg/dl Total Bilirubin (0.2-1.0) mg/dl AST (13-39) U/L ALT (7-52) U/L Alkaline Phosphatase (34-104) U/L Total Protein (6.0-8.3) gm/dl Albumin (3.4-5.0) gm/dl Globulin (2.5-4.0) gm/dl Albumin/Globulin Ratio (0.9-2) Lipase (11-82) U/L Urine Color Yellow Urine Appearance Clear (Clear) Urine pH 5.5 (4.5-7.5) Ur Specific [place] 1.021 (1.000-1.030) Urine Protein 1+ H (Negative) Urine Glucose (UA) Negative (Negative) Urine Ketones 1+ H (Negative) Urine Blood Negative (Negative) Urine Nitrite Negative (Negative) Urine Bilirubin Negative (Negative) Urine Urobilinogen Negative (Negative) Ur Leukocyte Esterase 1+ H (Negative) Urine WBC (Auto) 5-10 H (0-5) /hpf Urine RBC (Auto) 0-4 (0-4) /hpf U Hyaline Cast (Auto) 1-5 (0-5) /lpf U Epithel Cells (Auto) >30 H (0-5) /lpf Urine Bacteria (Auto) 1+ H (Negative) SARS-CoV-2 (PCR) (Negative) Influenza Type A (PCR) (Neg) Influenza Type B (PCR) (Neg) RSV (RT-PCR) (Neg) Administered Medications Discontinued Medications Acetaminophen (Acetaminophen 325 Mg Tab) 650 mg PO NOW STA Stop: 08/05/22 14:56 Last Admin: 08/05/22 15:16 Dose: 650 mg Documented By: KARINA Sodium Chloride (Nss 1000ml) 1,000 mls @ 999 mls/hr IV .Q1H1M ONE Stop: 08/05/22 15:55 Last Admin: 08/05/22 15:18 Dose: 999 mls/hr Documented By: KARINA Ioversol (Optiray 350 100ml) 81 ml IV ONCE ONE Stop: 08/05/22 15:39 Last Admin: 08/05/22 15:38 Dose: 81 ml Documented By: ROSE MARIE Ondansetron HCl (Ondansetron Inj 2 Mg/Ml 2 Ml Vial) 4 mg IV NOW STA Stop: 08/05/22 14:56 Last Admin: 08/05/22 15:18 Dose: 4 mg Documented By: KARINA Imaging Data Radiologist's Impression: Abdomen/Pelvis CT 08/05/22 14:55 CT abd pelvis IV con only CLINICAL HISTORY: n/v TECHNIQUE: Helical axial images of the abdomen and pelvis were obtained and displayed. Automated dose lowering techniques and/or adjustment according to patient size were utilized for this exam. This exam was performed with intravenous contrast. CT DOSE: 5110.32 mGy.cm COMPARISON: Comparison is made to CT abdomen pelvis 05/09/2019 FINDINGS: Lower chest: Faint bilateral lower lung airspace opacities are seen. Liver: Unremarkable. No focal lesions are seen. Gallbladder and biliary tree: Cholelithiasis is seen without evidence of cholecystitis. No intra- or extrahepatic biliary ductal dilation. Pancreas: Fatty replacement of the pancreas is seen. Spleen: Unremarkable. Adrenals: Unremarkable. Kidneys and ureters: Bilateral renal stones are seen. Lobular contour of the kidneys noted. Bladder: Limited evaluation due to underdistention. Reproductive organs: A left ovarian cyst is seen. Bowel: Unremarkable appearance of the bowel. The appendix is normal. Patient is status post gastric bypass surgery. Lymph nodes Retroperitoneal: Unremarkable. Pelvic: Unremarkable. Mesenteric: Unremarkable. Peritoneum: Normal. Vessels: Unremarkable. Abdominal wall: Fat-containing umbilical hernias are seen. Small fat-containing bilateral inguinal hernias are noted. Bones: Unremarkable. IMPRESSION: 1. Cholelithiasis is seen. No CT evidence of cholecystitis. 2. Bilateral nonobstructive nephrolithiasis. The appendix is normal. 3. Additional findings as above. ACT 112: Negative or not required by law. Electronically signed by: Raman Flores M.D. 08/05/2022 3:59 PM Chest X-Ray 08/05/22 14:55 XR chest 1V portable HISTORY: cough fever COMPARISON: Chest 11/10/2019. FINDINGS: The heart remains enlarged. Mild pulmonary vascular congestion has improved. No new focal lung consolidations to suggest a pneumonia. No pleural effusions. No pneumothorax. Surgical clips seen within the left upper quadrant. IMPRESSION: Stable cardiomegaly with interval improvement in the mild pulmonary vascular congestion. ACT 112: Negative or not required by law. Electronically signed by: Tank Calvillo M.D. 08/05/2022 4:[address] 08/05/22 14:[address] DOSE: HISTORY: Headache. Dizziness. TECHNIQUE: Multiaxial CT images of the head were performed without the use of intravenous contrast. Automated exposure control was utilized for this study. A dose lowering technique was utilized adhering to the principles of ALARA. Comparison: None. Findings: The paranasal sinuses and mastoid air cells are clear. The calvarium and skull base are intact. The ventricles and sulci are within normal limits. There is no mass, hematoma, midline shift, or acute infarct. Stable small focus of encephalomalacia within the left midbrain likely representing an old infarct. Impression: No acute intracranial abnormality. ACT 112: Negative or not required by law. Electronically signed by: Tank Calvillo M.D. 08/05/2022 3:51 PM Discharge Plan Visit Data Chief Complaint: Vomiting Stated Complaint: VOMITING,HEADACHE,DIZZY,HOT/COLD ED Provider: Frankie Dominguez Discharge Problem: Viral URI, Shortness of breath, Abdominal pain, Abnormal ECG, Vomiting Forms Stand Alone [facility] Prescriptions Prescriptions: No Action atorvastatin 10 mg tablet 10 mg PO HS metoprolol succinate 50 mg tablet extended release 24 hr 50 mg PO HS quetiapine 200 mg tablet 200 mg PO HS ergocalciferol (vitamin D2) [Vitamin D2] 50,000 unit capsule 50,000 unit PO WK Rx Instructions: TAKES ON WEDNESDAYS verapamil 120 mg capsule,ext rel. pellets 24 hr 120 mg PO HS escitalopram oxalate 20 mg tablet 20 mg PO HS gabapentin 300 mg Capsule 300 mg PO HS melatonin 10 mg Tablet 10 mg PO HS PRN (Reason: Sleep) Referrals Referrals: Tip Stark DO [Primary Care Provider] -
[2022-08-05] MEDS ORDERED: OPTIRAY 350 100ml IV ONE (15:38)
--- NOTE | 2022-08-05 15:52 | CT Scan Report ---
HEAD CT NONCONTRAST CT DOSE: HISTORY: Headache. Dizziness. TECHNIQUE: Multiaxial CT images of the head were performed without the use of intravenous contrast. A utomated exposure control was utilized for this study. A dose lowering technique was utilized adheri ng to the principles of ALARA. Comparison: None. Findings: The paranasal sinuses and mastoid air cells are clear. The calvarium and skull base are int act. The ventricles and sulci are within normal limits. There is no mass, hematoma, midline shift, or acute infarct. Stable small focus of encephalomalacia within the left midbrain likely representing a n old infarct. Impression: No acute intracranial abnormality. ACT 112: Negative or not required by law. Electronically signed by: Tank Calvillo M.D. 08/05/2022 3:51 PM
--- NOTE | 2022-08-05 16:01 | CT Scan Report ---
CT abd pelvis IV con only CLINICAL HISTORY: n/v TECHNIQUE: Helical axial images of the abdomen and pelvis were obtained and displayed. Automated dose lowering techniques and/or adjustment according to patient size were utilized for this exam. This e xam was performed with intravenous contrast. CT DOSE: 5110.32 mGy.cm COMPARISON: Comparison is made to CT abdomen pelvis 05/09/2019 FINDINGS: Lower chest: Faint bilateral lower lung airspace opacities are seen. Liver: Unremarkable. No focal lesions are seen. Gallbladder and biliary tree: Cholelithiasis is seen without evidence of cholecystitis. No intra- or extrahepatic biliary ductal dilation. Pancreas: Fatty replacement of the pancreas is seen. Spleen: Unremarkable. Adrenals: Unremarkable. Kidneys and ureters: Bilateral renal stones are seen. Lobular contour of the kidneys noted. Bladder: Limited evaluation due to underdistention. Reproductive organs: A left ovarian cyst is seen. Bowel: Unremarkable appearance of the bowel. The appendix is normal. Patient is status post gastric b ypass surgery. Lymph nodes Retroperitoneal: Unremarkable. Pelvic: Unremarkable. Mesenteric: Unremarkable. Peritoneum: Normal. Vessels: Unremarkable. Abdominal wall: Fat-containing umbilical hernias are seen. Small fat-containing bilateral inguinal he rnias are noted. Bones: Unremarkable. IMPRESSION: 1. Cholelithiasis is seen. No CT evidence of cholecystitis. 2. Bilateral nonobstructive nephrolithiasis. The appendix is normal. 3. Additional findings as above. ACT 112: Negative or not required by law. Electronically signed by: Raman Flores M.D. 08/05/2022 3:59 PM
[2022-08-05 16:13] LABS: Appearance Urine Clear (Clear); Bacteria Urine Automated 1+ (Negative); Bilirubin Urine Negative (Negative); Blood Urine Negative (Negative); Color Urine Yellow; Epithelial Cell Urine Auto >30 /lpf (0-5); Glucose Urine UA Negative (Negative); Ketones Urine 1+ (Negative); Leukocyte Esterase Urine 1+ (Negative); Nitrite Urine Negative (Negative); Protein Urine 1+ (Negative); RBC Urine Automated 0-4 /hpf (0-4); Specific Gravity Urine 1.021 (1.000-1.030); Urobilinogen Urine Negative (Negative); pH Urine 5.5 (4.5-7.5)
[2022-08-05 16:18] LABS: Influenza A virus by PCR Negative (Neg); Influenza B virus by PCR Negative (Neg); RSV by PCR Negative (Neg); SARS CoV2 RNA(COVID-19)Cepheid NEGATIVE (Negative)
--- NOTE | 2022-08-05 16:21 | XRay Report ---
XR chest 1V portable HISTORY: cough fever COMPARISON: Chest 11/10/2019. FINDINGS: The heart remains enlarged. Mild pulmonary vascular congestion has improved. No new focal l simeon consolidations to suggest a pneumonia. No pleural effusions. No pneumothorax. Surgical clips seen within the left upper quadrant. IMPRESSION: Stable cardiomegaly with interval improvement in the mild pulmonary vascular congestion. ACT 112: Negative or not required by law. Electronically signed by: Tank Calvillo M.D. 08/05/2022 4:20 PM
--- NOTE | 2022-08-05 17:05 | History & Physical Report ---
Date of Service August 05, 2022 Assessment & Plan (1) Acute electrocardiogram changes: (2) Hyperlipidemia: Plan: - Admit to PCU - EKG with new changes in V1-V6, pt reports chest heaviness intermittently however denies chest pain. - initial troponin was not obtained, Ordered - 2D echo ordered for tomorrow - Consider cardiology consultation (3) Upper respiratory infection: Plan: - Sputum culture, duonebs QID and Q2H prn, tessalon pearls and hycodan cough syrup - no hypoxia, does not wear supplemental o2 at baseline, HR is normal, BP is likely slightly low as she has been taking her medications including metoprolol succinate routinely but has poor PO intake for 2-3 days and is dehydrated - Influenza swab neg, MRSA swab neg, COVID neg, consider biofire swab, likely is due to another respiratory virus - will treat her supportively in the meantime - WBC at time of admission = 12.35 - BCx x 2, lactate and procal ordered - Pt reports fevers at home, here is afebrile - CXR reviewed as above without obvious consolidations. Can consider a CT chest tomorrow. CT abdomen shows cholelithiasis but no cholecystitis. - Consider antibiotic therapy pending procal, lactic acid - NSS @ 125 ml/hr x 1 more bag, first running in now (4) Morbid obesity: Plan: - BMI of 46.8 s/p gastric bypass surgery - Diet and exercise to be encouraged (5) Migraine: Plan: - hx of such, reports she has been using tylenol at home for headaches. Pt has not tolerated good PO intake for 2 days, continue fluids for hydration. Also did not drink any caffeine in 2 days and reports normally has a cup of coffee. (6) MDD (major depressive disorder): (7) KATHARINE (generalized anxiety disorder): Plan: - Mood controlled with lexapro, seroquel and gabapentin - continue DVT ppx: teds, scds, heparin subq CODE: Full Dispo: From home, likely to remain in the hospital x 1-2 days History of Present Illness Chief Complaint: Illness Primary Care Provider: Tip Stark DO This is a 61-year-old female with PMHx of HLD, left ventricular hypertrophy, supraventricular tachycardia, history of gastric bypass, CKD stage IIIb, depression, anxiety, migraine, lumbar DDD, osteoarthritis adn morbid obesity. Pt reports symptoms of nasal congestion, cough, chest heaviness, sore throat, dizzy spells started on Wednesday and then her symptoms have progressed to having vomiting yesterday, counts it as 3 times today with clear phlegm like emesis. She admits to feeling sweaty and having chills Wednesday through today, (but did not take her temperature because couldn't find the thermometer). Pt has been taking tylenol for headaches, but no other medication. Pt has been up moving to take care of a 9 week old puppy, and has multiple claw and bite bower over her arms and legs. She has had minimal po intake intake for the past 2 days. She lives with 2 sons, and one of them went to [facility] for similar upper respiratory symptoms on Wednesday and came home with albuterol inhaler and cough medicine. Denies other abdominal symptoms such as diarrhea. She is not vaccinated for Covid or influenza and does not want to be. Allergies Allergy/AdvReac Type Severity Reaction Status Date / Time potassium AdvReac Severe Cardiac Verified 08/05/22 16:27 issues fluoxetine AdvReac Intermediate Hallucinati Verified 08/05/22 16:27 ons lorazepam AdvReac Intermediate Hallucinati Verified 08/05/22 16:27 ons Home Medications Medication Instructions Recorded Confirmed Type atorvastatin 10 mg tablet 10 mg PO HS 05/09/19 08/05/22 History ergocalciferol (vitamin D2) 1,250 50,000 unit PO WK 05/09/19 08/05/22 History mcg (50,000 unit) capsule (Vitamin D2) escitalopram oxalate 20 mg tablet 20 mg PO HS 05/09/19 08/05/22 History metoprolol succinate 50 mg 50 mg PO HS 05/09/19 08/05/22 History tablet,extended release 24 hr quetiapine 200 mg tablet 200 mg PO HS 05/09/19 08/05/22 History verapamil 120 mg 24 hr 120 mg PO HS 05/09/19 08/05/22 History capsule,extended release gabapentin 300 mg capsule 300 mg PO HS 08/05/22 08/05/22 History melatonin 10 mg tablet 10 mg PO HS PRN Sleep 08/05/22 08/05/22 History Past Med/Surg History Medical History Diabetes Per records Last Hgb A1C 6.4 per 10/30/20 PCP note. Diet controlled KATHARINE (generalized anxiety disorder) Hx of supraventricular tachycardia Hyperlipidemia Kidney stones MDD (major depressive disorder) Migraine Morbid obesity PVC (premature ventricular contraction) Stroke Around 1989- residual mild weakness on right side. Surgical History History of arthroscopy of left shoulder History of x 2 Hx of arthroscopy of right knee Hx of dilation and curettage x 2 Hx of gastric bypass Family History Other Cancer Diabetes Dyslipidemia Heart disease Hypertension Social History Smoking Status: Never smoker Second Hand Exposure: No; Do You Dip or Chew Tobacco: No; Tobacco Cessation Education Requested by Patient: No Hx Alcohol Use: No Hx Substance Use: No Preferred Language: Estonian Communication Ability: Effective Press Assistant And Feeder Required: No Beliefs That Will Affect Care: None Current Living Situation: Family Current Living Situation Comment: Lives home with family Other Information That Helps Us Care for You: No Feels Safe at Home: Yes Safety Concerns: Feels Safe At This Time Assistive Devices: None Review of Systems Review of Systems: Constitutional: + fever, sweats and chills Eyes: No diplopia, no worsening or blurred vision ENT: normal hearing, no trouble swallowing, + dry mouth Respiratory: + cough, sputum is clear to green, denies dyspnea at rest or on exertion Cardiovascular: + chest heaviness with coughing, No chest pain, tightness or palpitations Abdomen: No pain, nausea, vomiting, diarrhea or constipation Musculoskeletal: No joint pain, calf pain, swelling Neurologic: No weakness, numbness/tingling, or balance problems Psychiatric: No anxiety or depression Skin: No rash or itch Physical Exam Physical Exam: General: awake, alert, no apparent distress, morbidly obese with BMI of 46.9 Head: Normocephalic, atraumatic ENT: PERRL, EOMI, no pharyngeal exudate, +mucous membranes slightly dry, Voice is scratchy and sqeaky Chest:On room air with sats at 97%, coarse breath sounds at bases, no adventitious breath sounds Cardiac: Regular rate and rhythm, no murmur, no JVD, normal peripheral pulses, good capillary refill Abdominal: NABS x 4 quadrants, soft, nondistended, nontender to palpation, no rebound or guarding Extremities: Normal inspection, no peripheral edema or erythema, calfs nontender to palpation Skin: multiple skin abraisons with bite/claw bower with worse location being the left forearm, other locations include the right forearm, and both lower legs bilaterally, no surrounding erythema or obvious cellulitis Psych: Normal mood and affect Neuro: AAO x 3, strength intact bilaterally and rated 5/5, no motor deficits, speech is clear, no peripheral sensory deficits Results & Data Results & Data ([facility]) Vital Signs (Past 12 Hours) Vital Signs Temp Pulse Pulse Resp BP BP Pulse Ox 08/05/22 16:05 37.1 C 70 22 120/68 96 08/05/22 15:15 37.9 C H 08/05/22 14:47 38 C H 80 17 148/91 H 96 08/05/22 12:30 36.8 C 89 18 150/65 H 94 O2 Del Method 08/05/22 16:05 Room Air 08/05/22 15:15 08/05/22 14:47 Room Air 08/05/22 12:30 Room Air Laboratory Results 08/05/22 15:20 Urine Culture - Pending Urine,Clean Catch 08/05/22 08/05/22 08/05/22 15:20 15:20 14:05 WBC RBC Hgb Hct MCV MCH MCHC RDW Std Deviation RDW Coeff of Rebecca Plt Count MPV Immature Gran % (Auto) Neut % (Auto) Lymph % (Auto) [place] % (Auto) Eos % (Auto) Baso % (Auto) Neut # (Auto) Lymph # (Auto) [place] # (Auto) Eos # (Auto) Baso # (Auto) Immature Gran # (Auto) Sodium 136 Potassium 4.3 Chloride 104 Carbon Dioxide 23 Anion Gap 9 BUN 14 Creatinine 1.31 H Est Cr Clr Drug Dosing 63.7 Est GFR ( Amer) 51.2 Est GFR (Non-Af Amer) 44.1 BUN/Creatinine Ratio 10.7 Glucose 141 H Calcium 8.9 Total Bilirubin 1.2 H AST 12 L ALT 14 Alkaline Phosphatase 84 Total Protein 6.9 Albumin 3.9 Globulin 3.0 Albumin/Globulin Ratio 1.3 Lipase 11 Urine Color Yellow Urine Appearance Clear Urine pH 5.5 Ur Specific [place] 1.021 Urine Protein 1+ H Urine Glucose (UA) Negative Urine Ketones 1+ H Urine Blood Negative Urine Nitrite Negative Urine Bilirubin Negative Urine Urobilinogen Negative Ur Leukocyte Esterase 1+ H Urine WBC (Auto) 5-10 H Urine RBC (Auto) 0-4 U Hyaline Cast (Auto) 1-5 U Epithel Cells (Auto) >30 H Urine Bacteria (Auto) 1+ H SARS-CoV-2 (PCR) NEGATIVE Influenza Type A (PCR) Negative Influenza Type B (PCR) Negative RSV (RT-PCR) Negative 08/05/22 14:05 WBC 12.35 H RBC 4.96 Hgb 12.2 Hct 39.0 MCV 78.6 L MCH 24.6 L MCHC 31.3 L RDW Std Deviation 42.6 RDW Coeff of Rebecca 15.2 H Plt Count 292 MPV 9.4 Immature Gran % (Auto) 0.3 Neut % (Auto) 85.5 Lymph % (Auto) 5.5 [place] % (Auto) 8.1 Eos % (Auto) 0.3 Baso % (Auto) 0.3 Neut # (Auto) 10.55 H Lymph # (Auto) 0.68 L [place] # (Auto) 1.00 H Eos # (Auto) 0.04 Baso # (Auto) 0.04 Immature Gran # (Auto) 0.04 H Sodium Potassium Chloride Carbon Dioxide Anion Gap BUN Creatinine Est Cr Clr Drug Dosing Est GFR ( Amer) Est GFR (Non-Af Amer) BUN/Creatinine Ratio Glucose Calcium Total Bilirubin AST ALT Alkaline Phosphatase Total Protein Albumin Globulin Albumin/Globulin Ratio Lipase Urine Color Urine Appearance Urine pH Ur Specific [place] Urine Protein Urine Glucose (UA) Urine Ketones Urine Blood Urine Nitrite Urine Bilirubin Urine Urobilinogen Ur Leukocyte Esterase Urine WBC (Auto) Urine RBC (Auto) U Hyaline Cast (Auto) U Epithel Cells (Auto) Urine Bacteria (Auto) SARS-CoV-2 (PCR) Influenza Type A (PCR) Influenza Type B (PCR) RSV (RT-PCR) Diagnostic Findings Abdomen/Pelvis CT 08/05/22 14:55 CT abd pelvis IV con only CLINICAL HISTORY: n/v TECHNIQUE: Helical axial images of the abdomen and pelvis were obtained and displayed. Automated dose lowering techniques and/or adjustment according to patient size were utilized for this exam. This exam was performed with intravenous contrast. CT DOSE: 5110.32 mGy.cm COMPARISON: Comparison is made to CT abdomen pelvis 05/09/2019 FINDINGS: Lower chest: Faint bilateral lower lung airspace opacities are seen. Liver: Unremarkable. No focal lesions are seen. Gallbladder and biliary tree: Cholelithiasis is seen without evidence of cholecystitis. No intra- or extrahepatic biliary ductal dilation. Pancreas: Fatty replacement of the pancreas is seen. Spleen: Unremarkable. Adrenals: Unremarkable. Kidneys and ureters: Bilateral renal stones are seen. Lobular contour of the kidneys noted. Bladder: Limited evaluation due to underdistention. Reproductive organs: A left ovarian cyst is seen. Bowel: Unremarkable appearance of the bowel. The appendix is normal. Patient is status post gastric bypass surgery. Lymph nodes Retroperitoneal: Unremarkable. Pelvic: Unremarkable. Mesenteric: Unremarkable. Peritoneum: Normal. Vessels: Unremarkable. Abdominal wall: Fat-containing umbilical hernias are seen. Small fat-containing bilateral inguinal hernias are noted. Bones: Unremarkable. IMPRESSION: 1. Cholelithiasis is seen. No CT evidence of cholecystitis. 2. Bilateral nonobstructive nephrolithiasis. The appendix is normal. 3. Additional findings as above. ACT 112: Negative or not required by law. Electronically signed by: Raman Flores M.D. 08/05/2022 3:59 PM Chest X-Ray 08/05/22 14:55 XR chest 1V portable HISTORY: cough fever COMPARISON: Chest 11/10/2019. FINDINGS: The heart remains enlarged. Mild pulmonary vascular congestion has improved. No new focal lung consolidations to suggest a pneumonia. No pleural effusions. No pneumothorax. Surgical clips seen within the left upper quadrant. IMPRESSION: Stable cardiomegaly with interval improvement in the mild pulmonary vascular congestion. ACT 112: Negative or not required by law. Electronically signed by: Tank Calvillo M.D. 08/05/2022 4:[address] 08/05/22 14:[address] DOSE: HISTORY: Headache. Dizziness. TECHNIQUE: Multiaxial CT images of the head were performed without the use of intravenous contrast. Automated exposure control was utilized for this study. A dose lowering technique was utilized adhering to the principles of ALARA. Comparison: None. Findings: The paranasal sinuses and mastoid air cells are clear. The calvarium and skull base are intact. The ventricles and sulci are within normal limits. There is no mass, hematoma, midline shift, or acute infarct. Stable small focus of encephalomalacia within the left midbrain likely representing an old infarct. Impression: No acute intracranial abnormality. ACT 112: Negative or not required by law. Electronically signed by: Tank Calvillo M.D. 08/05/2022 3:51 PM ECG Additional Comments: T wave inversion in V1-V6 compared to previous EKG findings from Oct 2019. Code Status & VTE Plan Code Status Full code - discussed with the patient at bedside Supervising Physician Co-Signing Physician Notes I have seen and examined the patient and have discussed the case with the provider above. I agree with the assessment and plan as stated. 61 yo F with an acute viral bronchitis presenting with classic symptoms of bronchitis. Took Tylenol for fever at home but no other OTC medications were tried. Her vomiting has not been excessive and she has actually been tolerating food. She was admitted because of the EKG changes in the ER. She has a normal troponin, which will trend overnight. Low risk of ACS and currently denies smoking. No history of heart disease in the past. She underwent a nuclear medicine stress test in Aug 2021 for atypical chest pain at that time which was normal. Trend trop overnight and repeat EKG in am. Likely dc to home in am if she is tolerating food and no cardiac concerns. DO Luis Alberto
[2022-08-05 19:27] LABS: C Reactive Protein 10.74 mg/dl (0-0.5)
[2022-08-05] MEDS ORDERED: ONDANSETRON INJ 2 MG/ML 2 ML VIAL IV PRN (19:47)
[2022-08-05] MEDS ORDERED: SODIUM CHLORIDE 0.9% 1000ML 1,000 ML IV SCH (19:47)
[2022-08-05] MEDS ORDERED: ACETAMINOPHEN 325 MG TAB PO PRN (19:47)
[2022-08-05] MEDS ORDERED: guaiFENesin/CODEINE 100MG/10MG 5ML UDC PO PRN (19:47)
[2022-08-05] MEDS ORDERED: MELATONIN 3 MG TAB PO PRN (19:53)
[2022-08-05 19:58] LABS: Troponin I High Sensitivity 5.6 pg/ml (0-14)
[2022-08-05] MEDS ORDERED: ALBUT/IPRATROP 3MG/0.5MG NEB 3 ML VIAL NEB SCH (20:00)
[2022-08-05] MEDS: ATORVASTATIN 10 MG TAB PO SCH (20:38)
[2022-08-05] MEDS: VERAPAMIL HCL 120 MG TABCR PO SCH (20:38)
[2022-08-05] MEDS: ESCITALOPRAM OXALATE 20 MG TAB PO SCH (20:38)
[2022-08-05] MEDS: QUEtiapine FUMARATE 200 MG TAB PO SCH (20:38)
[2022-08-05] MEDS: BENZONATATE 100 MG CAPSULE PO SCH (20:38)
[2022-08-05] MEDS: GABAPENTIN 300 MG CAP PO SCH (20:38)
[2022-08-05] MEDS: HEPARIN SOD 5,000 UNIT/0.5 ML VIAL SQ SCH (20:39)
[2022-08-05] MEDS: METOPROLOL SUCC 50MG EXT REL TAB PO SCH (20:39)
[2022-08-05] MEDS ORDERED: ALBUT/IPRATROP 3MG/0.5MG NEB 3 ML VIAL NEB PRN ×2 (20:45→20:48)
[2022-08-06 06:51] LABS: Hematocrit (blood only) 33.7 % (34.1-44.9); Hemoglobin 10.3 g/dl (12.0-16.0); Mean Corpuscular Hemoglobin 24.2 pg (25.0-34.0); Mean Corpuscular Hgb Conc 30.6 g/dL (32.0-36.0); Mean Corpuscular Volume 79.1 fL (80.0-100.0); Mean Platelet Volume 10.3 fL (9.4-12.3); Platelet Count 242 K/uL (130-400); RDW Coefficient of Variation 15.4 % (11.5-14.5); RDW Standard Deviation 43.9 fL (36.4-46.3); Red Blood Count 4.26 M/uL (3.93-5.22); White Blood Count 6.58 K/ul (4.8-10.8)
[2022-08-06 07:22] LABS: BUN Creatinine Ratio 15.1 (10-20); Chol HDL Ratio 2.8 (0-5); Creatinine Clr Calc Pharmacy 66.2 ml/min; Est GFR (African American) 53.6 ml/min; Est GFR (Non-African American) 46.3 ml/min; Magnesium 2.1 mg/dl (1.7-2.4); Potassium 4.1 mmol/L (3.5-5.1)
[2022-08-06 07:28] LABS: Estimated Average Glucose 134 mg/dl; Hemoglobin A1C 6.3 % (4.5-5.6)
[2022-08-06] MEDS: BENZONATATE 100 MG CAPSULE PO SCH ×3 (08:39→21:01)
[2022-08-06] MEDS: HEPARIN SOD 5,000 UNIT/0.5 ML VIAL SQ SCH ×2 (08:39→21:02)
--- NOTE | 2022-08-06 11:53 | Electrocardiogram Report ---
Test Reason : Blood Pressure : / mmHG Vent. Rate : 059 BPM Atrial Rate : 059 BPM P-R Int : 126 ms QRS Dur : 090 ms QT Int : 458 ms P-R-T Axes : 008 040 020 degrees QTc Int : 453 ms Sinus bradycardia T wave abnormality, consider anterolateral ischemia Abnormal ECG When compared with ECG of 05-AUG-2022 14:43, No significant change was found Confirmed by Dov Noble ([id number]) on 08/06/2022 11:52:59 AM Referred By: REFERRED SELF Confirmed By:Dov Noble
--- NOTE | 2022-08-06 11:53 | Electrocardiogram Report ---
Test Reason : Blood Pressure : / mmHG Vent. Rate : 079 BPM Atrial Rate : 079 BPM P-R Int : 132 ms QRS Dur : 084 ms QT Int : 374 ms P-R-T Axes : 034 019 -12 degrees QTc Int : 428 ms Normal sinus rhythm T wave abnormality, consider anterolateral ischemia Abnormal ECG When compared with ECG of 10-NOV-2019 15:20, T wave inversion now evident in Anterior leads Confirmed by Dov Noble ([id number]) on 08/06/2022 11:52:50 AM Referred By: REFERRED SELF Confirmed By:Dov Noble
[2022-08-06] MEDS: DOXYCYCLINE HYCLATE 100 MG CAP PO SCH ×2 (12:30→21:02)
[2022-08-06 12:37] LABS: Adenovirus PCR Not Detected (NotDetected); Bordetella parapertussis PCR Not Detected (NotDetected); Bordetella pertussis PCR Not Detected (NotDetected); Chlamydia pneumoniae PCR Not Detected (NotDetected); Coronavirus 229E PCR Not Detected (NotDetected); Coronavirus CoV-2 (COVID19)PCR Not Detected (NotDetected); Coronavirus HKU1 PCR Not Detected (NotDetected); Coronavirus NL63 PCR Not Detected (NotDetected); Coronavirus OC43PCR Not Detected (NotDetected); Human Metapneumovirus PCR Not Detected (NotDetected); Influenza A PCR Not Detected (NotDetected); Influenza B PCR Not Detected (NotDetected); Mycoplasma pneumoniae PCR Not Detected (NotDetected); Parainfluenza Virus 1 PCR Not Detected (NotDetected); Parainfluenza Virus 2 PCR Not Detected (NotDetected); Parainfluenza Virus 3 PCR Not Detected (NotDetected); Parainfluenza Virus 4 PCR Not Detected (NotDetected); Respiratory Syncytial VirusPCR Not Detected (NotDetected)
[2022-08-06 12:38] LABS: Rhinovirus/Enterovirus PCR DETECTED (NotDetected)
[2022-08-06] MEDS: predniSONE 10 MG TABLET PO SCH (13:17)
--- NOTE | 2022-08-06 15:47 | Hospitalist Progress Note ---
Date of Service August 06, 2022 Assessment & Plan (1) Acute electrocardiogram changes: (2) Hyperlipidemia: Plan: Abnormal EKG T wave inversions from V1 to V6 Patient denies chest pain Troponin negative Echo showed no wall motion abnormality Will advised to follow-up with cardiology as outpatient (3) Upper respiratory infection: Plan: Acute Bronchitis Secondary to Entero/rhinovirus infection --CXR:Stable cardiomegaly with interval improvement in the mild pulmonary vascular congestion. Procalcitonin 0.25 Saturating well on room air Empirically started on doxycycline Also started on low-dose prednisone Nebs as needed Isolation precautions (4) Morbid obesity: Plan: - BMI of 46.8 s/p gastric bypass surgery - Diet and exercise encouraged (5) Migraine: Plan: H/O Migraine Pain meds PRN Hyperlipidemia On statin CKD III Monitor renal function H/O SVT Continue home meds (6) MDD (major depressive disorder): (7) KATHARINE (generalized anxiety disorder): Plan: - Continue lexapro, seroquel and gabapentin DVT Px: Heparin SQ CODE STATUS: Full Code Admission and Anticipated Discharge Date Admission Date: August 05, 2022 Subjective Patient is seen and examined at bedside States having cough with expectoration Also reports hoarse voice and headache today Dizziness resolved today Denies any chest pain, dyspnea, nausea, abdominal pain Offers no other complaints Review of Systems Review of Systems: All systems reviewed & are unremarkable except as noted in Subjective Physical Exam Physical Exam: Physical Exam: Vitals signs as noted above General Appearance:Obese, no apparent distress Head: normocephalic, Atraumatic Eyes: normal inspection, EOMI Neck: supple, Trachea midline Respiratory/Chest: Coarse breath sounds, No accessory muscle use Cardiovascular: S1, S2, No murmur Abdomen/GI:Soft, Non tender, Bowel sounds present Extremities/Musculoskeletal:normal inspection, no edema Neurologic/Psych:AAOX3, grossly no focal neurological deficits Skin: normal color, warm Results & Data Results & Data ([facility]) Vital Signs (Past 12 Hours) Vital Signs Temp Pulse Pulse Resp BP Pulse Ox O2 Del Method 08/06/22 08:00 Room Air 08/06/22 07:38 36.7 C 64 18 124/74 91 Room Air 08/06/22 07:18 64 Laboratory Results Short CBC 08/06/22 Range/Units 06:03 WBC 6.58 (4.8-10.8) K/ul Hgb 10.3 L (12.0-16.0) g/dl Hct 33.7 L (34.1-44.9) % Plt Count 242 (130-400) K/uL BMP 08/06/22 06:03 Sodium 140 Potassium 4.1 Chloride 108 H Carbon Dioxide 26 BUN 19 Creatinine 1.26 H Glucose 101 H Calcium 8.0 L Urine 08/05/22 Range/Units 15:20 Urine Color Yellow Urine Appearance Clear (Clear) Urine pH 5.5 (4.5-7.5) Ur Specific [place] 1.021 (1.000-1.030) Urine Protein 1+ H (Negative) Urine Glucose (UA) Negative (Negative)
[2022-08-06] MEDS: VERAPAMIL HCL 120 MG TABCR PO SCH (21:01)
[2022-08-06] MEDS: ATORVASTATIN 10 MG TAB PO SCH (21:01)
[2022-08-06] MEDS: METOPROLOL SUCC 50MG EXT REL TAB PO SCH (21:02)
[2022-08-06] MEDS: ESCITALOPRAM OXALATE 20 MG TAB PO SCH (21:02)
[2022-08-06] MEDS: QUEtiapine FUMARATE 200 MG TAB PO SCH (21:02)
[2022-08-06] MEDS: GABAPENTIN 300 MG CAP PO SCH (21:02)
[2022-08-07 06:25] LABS: Hematocrit (blood only) 34.7 % (34.1-44.9); Hemoglobin 10.5 g/dl (12.0-16.0); Mean Corpuscular Hemoglobin 24.4 pg (25.0-34.0); Mean Corpuscular Hgb Conc 30.3 g/dL (32.0-36.0); Mean Corpuscular Volume 80.5 fL (80.0-100.0); Platelet Count 293 K/uL (130-400); RDW Coefficient of Variation 15.3 % (11.5-14.5); RDW Standard Deviation 44.3 fL (36.4-46.3); Red Blood Count 4.31 M/uL (3.93-5.22); White Blood Count 6.55 K/ul (4.8-10.8)
[2022-08-07 06:50] LABS: BUN Creatinine Ratio 14.9 (10-20); Calcium 8.4 mg/dl (8.5-10.1); Creatinine Clr Calc Pharmacy 62.3 ml/min; Est GFR (African American) 49.8 ml/min; Potassium 4.2 mmol/L (3.5-5.1)
[2022-08-07] MEDS: predniSONE 10 MG TABLET PO SCH (09:11)
[2022-08-07] MEDS: BENZONATATE 100 MG CAPSULE PO SCH ×3 (09:11→20:01)
[2022-08-07] MEDS: DOXYCYCLINE HYCLATE 100 MG CAP PO SCH ×2 (09:11→20:01)
[2022-08-07] MEDS: HEPARIN SOD 5,000 UNIT/0.5 ML VIAL SQ SCH ×2 (09:12→20:00)
--- NOTE | 2022-08-07 09:49 | Electrocardiogram Report ---
Test Reason : Blood Pressure : / mmHG Vent. Rate : 071 BPM Atrial Rate : 071 BPM P-R Int : 152 ms QRS Dur : 084 ms QT Int : 410 ms P-R-T Axes : 022 020 017 degrees QTc Int : 445 ms Poor data quality, interpretation may be adversely affected Normal sinus rhythm Nonspecific T wave abnormality Abnormal ECG When compared with ECG of 06-AUG-2022 03:32, T wave inversion less evident in Anterior leads Confirmed by Diogo Barrera ([id number]) on 08/07/2022 9:49:20 AM Referred By: REFERRED SELF Confirmed By:Diogo Barrera
--- NOTE | 2022-08-07 10:03 | Electrocardiogram Report ---
Test Reason : Blood Pressure : / mmHG Vent. Rate : 069 BPM Atrial Rate : 069 BPM P-R Int : 154 ms QRS Dur : 088 ms QT Int : 396 ms P-R-T Axes : 036 023 -04 degrees QTc Int : 424 ms Normal sinus rhythm Nonspecific T wave abnormality Abnormal ECG When compared with ECG of 06-AUG-2022 16:15, (unconfirmed) No significant change was found Confirmed by Diogo Barrera ([id number]) on 08/07/2022 10:02:59 AM Referred By: REFERRED SELF Confirmed By:Diogo Barrera
[2022-08-07] MEDS ORDERED: SODIUM CHLORIDE 0.9% 500 ML IV ONE (11:10)
--- NOTE | 2022-08-07 15:02 | Hospitalist Progress Note ---
Date of Service August 07, 2022 Assessment & Plan (1) Acute electrocardiogram changes: (2) Hyperlipidemia: Plan: Abnormal EKG T wave inversions from V1 to V6 Patient denies chest pain Troponin negative Echo showed no wall motion abnormality Repeat EKG showed nonspecific T wave changes Advised to follow-up with cardiology as outpatient (3) Upper respiratory infection: Plan: Acute Bronchitis Secondary to Entero/rhinovirus infection --CXR:Stable cardiomegaly with interval improvement in the mild pulmonary vascular congestion. Procalcitonin 0.25 Saturating well on room air Empirically started on doxycycline Continue low-dose prednisone Nebs as needed Isolation precautions Continue current management Slowly improving (4) Morbid obesity: Plan: - BMI of 46.8 s/p gastric bypass surgery - Diet and exercise encouraged (5) Migraine: Plan: H/O Migraine Pain meds PRN Hyperlipidemia On statin CKD III Monitor renal function H/O SVT Continue home meds (6) MDD (major depressive disorder): (7) KATHARINE (generalized anxiety disorder): Plan: - Continue lexapro, seroquel and gabapentin DVT Px: Heparin SQ CODE STATUS: Full Code Admission and Anticipated Discharge Date Admission Date: August 05, 2022 Subjective Patient is seen and examined at bedside Reports having nausea and vomiting overnight Less cough this morning No other complaints Headache resolved Persistent hoarse voice Denies any chest pain, dyspnea, nausea, abdominal pain Review of Systems Review of Systems: All systems reviewed & are unremarkable except as noted in Subjective Physical Exam Physical Exam: Physical Exam: Vitals signs as noted above General Appearance:Obese, no apparent distress Head: normocephalic, Atraumatic Eyes: normal inspection, EOMI Neck: supple, Trachea midline Respiratory/Chest: Decreased breath sounds, No accessory muscle use Cardiovascular: S1, S2, No murmur Abdomen/GI:Soft, Non tender, Bowel sounds present Extremities/Musculoskeletal:normal inspection, no edema Neurologic/Psych:AAOX3, grossly no focal neurological deficits Skin: normal color, warm Results & Data Results & Data ([facility]) Vital Signs (Past 12 Hours) Vital Signs Temp Pulse Pulse Resp BP Pulse Ox O2 Del Method 08/07/22 10:55 36.6 C 68 18 121/81 95 Room Air 08/07/22 07:45 Room Air 08/07/22 07:41 63 08/07/22 07:19 36.7 C 70 18 137/76 93 Room Air 08/07/22 05:20 98 Room Air 08/07/22 04:33 36.7 C 77 18 127/74 91 Room Air Laboratory Results Short CBC 08/07/22 Range/Units 05:56 WBC 6.55 (4.8-10.8) K/ul Hgb 10.5 L (12.0-16.0) g/dl Hct 34.7 (34.1-44.9) % Plt Count 293 (130-400) K/uL BMP 08/07/22 05:56 Sodium 140 Potassium 4.2 Chloride 108 H Carbon Dioxide 26 BUN 20 Creatinine 1.34 H Glucose 98 Calcium 8.4 L
[2022-08-07] MEDS: VERAPAMIL HCL 120 MG TABCR PO SCH (20:00)
[2022-08-07] MEDS: ATORVASTATIN 10 MG TAB PO SCH (20:00)
[2022-08-07] MEDS: ESCITALOPRAM OXALATE 20 MG TAB PO SCH (20:00)
[2022-08-07] MEDS: METOPROLOL SUCC 50MG EXT REL TAB PO SCH (20:00)
[2022-08-07] MEDS: GABAPENTIN 300 MG CAP PO SCH (20:00)
[2022-08-07] MEDS: QUEtiapine FUMARATE 200 MG TAB PO SCH (20:00)
[2022-08-08 07:13] LABS: BUN Creatinine Ratio 17.5 (10-20); Calcium 8.4 mg/dl (8.5-10.1); Creatinine Clr Calc Pharmacy 66.2 ml/min; Est GFR (African American) 53.6 ml/min; Est GFR (Non-African American) 46.3 ml/min; Potassium 4.1 mmol/L (3.5-5.1)
[2022-08-08] MEDS: predniSONE 10 MG TABLET PO SCH (08:14)
[2022-08-08] MEDS: DOXYCYCLINE HYCLATE 100 MG CAP PO SCH (08:15)
[2022-08-08] MEDS: BENZONATATE 100 MG CAPSULE PO SCH (08:15)
[2022-08-08] MEDS: HEPARIN SOD 5,000 UNIT/0.5 ML VIAL SQ SCH (08:15)
[2022-08-08 11:28] VITALS: BP 123/65; PULSE 65; TEMP 98.4; O2SAT 96
--- NOTE | 2022-08-08 13:21 | Hospitalist Progress Note ---
Date of Service August 08, 2022 Assessment & Plan (1) Acute electrocardiogram changes: (2) Hyperlipidemia: Plan: Abnormal EKG T wave inversions from V1 to V6 Patient denies chest pain Troponin negative Echo showed no wall motion abnormality Repeat EKG showed nonspecific T wave changes Advised to follow-up with cardiology as outpatient (3) Upper respiratory infection: Plan: Acute Bronchitis Secondary to Entero/rhinovirus infection --CXR:Stable cardiomegaly with interval improvement in the mild pulmonary vascular congestion. Procalcitonin 0.25 Saturating well on room air Empirically started on doxycycline Continue low-dose prednisone Nebs as needed Isolation precautions Plan to discharge home today (4) Morbid obesity: Plan: - BMI of 46.8 s/p gastric bypass surgery - Diet and exercise encouraged (5) Migraine: Plan: H/O Migraine Pain meds PRN Hyperlipidemia On statin CKD III Monitor renal function H/O SVT Continue home meds (6) MDD (major depressive disorder): (7) KATHARINE (generalized anxiety disorder): Plan: - Continue lexapro, seroquel and gabapentin DVT Px: Heparin SQ CODE STATUS: Full Code Disposition Home Admission and Anticipated Discharge Date Admission Date: August 05, 2022 Subjective Patient is seen and examined at bedside States feeling better today No new complaints Nausea, vomiting resolved Cough, hoarseness slowly improving Denies any chest pain, dyspnea, nausea, abdominal pain Review of Systems Review of Systems: All systems reviewed & are unremarkable except as noted in Subjective Physical Exam Physical Exam: Physical Exam: Vitals signs as noted above General Appearance:Obese, no apparent distress Head: normocephalic, Atraumatic Eyes: normal inspection, EOMI Neck: supple, Trachea midline Respiratory/Chest: Decreased breath sounds, No accessory muscle use Cardiovascular: S1, S2, No murmur Abdomen/GI:Soft, Non tender, Bowel sounds present Extremities/Musculoskeletal:normal inspection, no edema Neurologic/Psych:AAOX3, grossly no focal neurological deficits Skin: normal color, warm Results & Data Results & Data ([facility]) Vital Signs (Past 12 Hours) Vital Signs Temp Pulse Resp BP BP Pulse Ox O2 Del Method 08/08/22 11:27 36.9 C 65 20 123/65 96 Room Air 08/08/22 08:05 Room Air 08/08/22 07:35 37 C 67 20 127/85 97 Room Air Laboratory Results [facility] 08/08/22 06:25 Sodium 139 Potassium 4.1 Chloride 108 H Carbon Dioxide 26 BUN 22 Creatinine 1.26 H Glucose 89 Calcium 8.4 L
--- NOTE | 2022-08-08 13:28 | Discharge Summary ---
Date of Service August 08, 2022 Admission HPI Per Admitting Provider This is a 61-year-old female with PMHx of HLD, left ventricular hypertrophy, supraventricular tachycardia, history of gastric bypass, CKD stage IIIb, depression, anxiety, migraine, lumbar DDD, osteoarthritis adn morbid obesity. Pt reports symptoms of nasal congestion, cough, chest heaviness, sore throat, dizzy spells started on Wednesday and then her symptoms have progressed to having vomiting yesterday, counts it as 3 times today with clear phlegm like emesis. She admits to feeling sweaty and having chills Wednesday through today, (but did not take her temperature because couldn't find the thermometer). Pt has been taking tylenol for headaches, but no other medication. Pt has been up moving to take care of a 9 week old puppy, and has multiple claw and bite bower over her arms and legs. She has had minimal po intake intake for the past 2 days. She lives with 2 sons, and one of them went to [employer] for similar upper respiratory symptoms on Wednesday and came home with albuterol inhaler and cough me dicine. Denies other abdominal symptoms such as diarrhea. She is not vaccinated for Covid or influenza and does not want to be. Admission Exam Per Admitting Provider Physical Exam Physical Exam: General: awake, alert, no apparent distress, morbidly obese with BMI of 46.9 Head: Normocephalic, atraumatic ENT: PERRL, EOMI, no pharyngeal exudate, +mucous membranes slightly dry, Voice is scratchy and sqeaky Chest:On room air with sats at 97%, coarse breath sounds at bases, no adventitious breath sounds Cardiac: Regular rate and rhythm, no murmur, no JVD, normal peripheral pulses, good capillary refill Abdominal: NABS x 4 quadrants, soft, nondistended, nontender to palpation, no rebound or guarding Extremities: Normal inspection, no peripheral edema or erythema, calfs nontender to palpation Skin: multiple skin abraisons with bite/claw bower with worse location being the left forearm, other locations include the right forearm, and both lower legs bilaterally, no surrounding erythema or obvious cellulitis Psych: Normal mood and affect Neuro: AAO x 3, strength intact bilaterally and rated 5/5, no motor deficits, speech is clear, no peripheral sensory deficits Principal Diagnosis Acute Bronchitis Entero/rhinovirus infection Abnormal EKG Discharge Data Allergies Allergy/AdvReac Type Severity Reaction Status Date / Time potassium AdvReac Severe Cardiac Verified 08/05/22 16:27 issues fluoxetine AdvReac Intermediate Hallucinati Verified 08/05/22 16:27 ons lorazepam AdvReac Intermediate Hallucinati Verified 08/05/22 16:27 ons Consultations 08/05/22 16:47 ED Decision to Admit Stat Procedures Performed Laboratory Results WBC 6.55 K/ul (4.8-10.8) 08/07/22 05:56 RBC 4.31 M/uL (3.93-5.22) 08/07/22 05:56 Hgb 10.5 g/dl (12.0-16.0) L 08/07/22 05:56 Hct 34.7 % (34.1-44.9) 08/07/22 05:56 MCV 80.5 fL (80.0-100.0) 08/07/22 05:56 MCH 24.4 pg (25.0-34.0) L 08/07/22 05:56 MCHC 30.3 g/dL (32.0-36.0) L 08/07/22 05:56 RDW Std Deviation 44.3 fL (36.4-46.3) 08/07/22 05:56 RDW Coeff of Rebecca 15.3 % (11.5-14.5) H 08/07/22 05:56 Plt Count 293 K/uL (130-400) 08/07/22 05:56 MPV 10.0 fL (9.4-12.3) 08/07/22 05:56 Immature Gran % (Auto) 0.3 % 08/05/22 14:05 Neut % (Auto) 85.5 % 08/05/22 14:05 Lymph % (Auto) 5.5 % 08/05/22 14:05 [place] % (Auto) 8.1 % 08/05/22 14:05 Eos % (Auto) 0.3 % 08/05/22 14:05 Baso % (Auto) 0.3 % 08/05/22 14:05 Neut # (Auto) 10.55 K/uL (1.4-6.5) H 08/05/22 14:05 Lymph # (Auto) 0.68 K/uL (1.2-3.4) L 08/05/22 14:05 [place] # (Auto) 1.00 K/uL (0.24-0.82) H 08/05/22 14:05 Eos # (Auto) 0.04 K/uL (0-0.50) 08/05/22 14:05 Baso # (Auto) 0.04 K/uL (0-0.2) 08/05/22 14:05 Immature Gran # (Auto) 0.04 K/uL (0.00-0.02) H 08/05/22 14:05 Sodium 139 mmol/L (136-145) 08/08/22 06:25 Potassium 4.1 mmol/L (3.5-5.1) 08/08/22 06:25 Chloride 108 mmol/L (98-107) H 08/08/22 06:25 Carbon Dioxide 26 mmol/L (21-32) 08/08/22 06:25 Anion Gap 5 (3-11) 08/08/22 06:25 BUN 22 mg/dl (6-23) 08/08/22 06:25 Creatinine 1.26 mg/dl (0.6-1.2) H 08/08/22 06:25 Est Cr Clr Drug Dosing 66.2 ml/min 08/08/22 06:25 Est GFR ( Amer) 53.6 ml/min 08/08/22 06:25 Est GFR (Non-Af Amer) 46.3 ml/min 08/08/22 06:25 BUN/Creatinine Ratio 17.5 (10-20) 08/08/22 06:25 Glucose 89 mg/dl (70-99(Fasting)) 08/08/22 06:25 Estimat Average Glucose 134 mg/dl 08/06/22 06:03 Hemoglobin A1c 6.3 % (4.5-5.6) H 08/06/22 06:03 Lactate 0.7 mmol/L (0.4-2.0) 08/05/22 18:39 Calcium 8.4 mg/dl (8.5-10.1) L 08/08/22 06:25 Phosphorus 3.0 mg/dl (2.5-4.9) 08/05/22 18:39 Magnesium 2.1 mg/dl (1.7-2.4) 08/06/22 06:03 Total Bilirubin 1.2 mg/dl (0.2-1.0) H 08/05/22 14:05 AST 12 U/L (13-39) L 08/05/22 14:05 ALT 14 U/L (7-52) 08/05/22 14:05 Alkaline Phosphatase 84 U/L (34-104) 08/05/22 14:05 Troponin I High Sens 5.6 pg/ml (0-14) 08/05/22 18:39 C-Reactive Protein 10.74 mg/dl (0-0.5) H 08/05/22 18:39 Total Protein 6.9 gm/dl (6.0-8.3) 08/05/22 14:05 Albumin 3.9 gm/dl (3.4-5.0) 08/05/22 14:05 Globulin 3.0 gm/dl (2.5-4.0) 08/05/22 14:05 Albumin/Globulin Ratio 1.3 (0.9-2) 08/05/22 14:05 Triglycerides 84 mg/dl (0-150) 08/06/22 06:03 Cholesterol 99 mg/dl (0-200) 08/06/22 06:03 LDL Cholesterol, Calc 47 mg/dl 08/06/22 06:03 VLDL Cholesterol, Calc 17 mg/dl (0-30) 08/06/22 06:03 HDL Cholesterol 35 mg/dl 08/06/22 06:03 Cholesterol/HDL Ratio 2.8 (0-5) 08/06/22 06:03 Lipase 11 U/L (11-82) 08/05/22 14:05 Procalcitonin 0.25 ng/ml (0-0.5) 08/05/22 18:39 Urine Color Yellow 08/05/22 15:20 Urine Appearance Clear (Clear) 08/05/22 15:20 Urine pH 5.5 (4.5-7.5) 08/05/22 15:20 Ur Specific Sage 1.021 (1.000-1.030) 08/05/22 15:20 Urine Protein 1+ (Negative) H 08/05/22 15:20 Urine Glucose (UA) Negative (Negative) 08/05/22 15:20 Urine Ketones 1+ (Negative) H 08/05/22 15:20 Urine Blood Negative (Negative) 08/05/22 15:20 Urine Nitrite Negative (Negative) 08/05/22 15:20 Urine Bilirubin Negative (Negative) 08/05/22 15:20 Urine Urobilinogen Negative (Negative) 08/05/22 15:20 Ur Leukocyte Esterase 1+ (Negative) H 08/05/22 15:20 Urine WBC (Auto) 5-10 /hpf (0-5) H 08/05/22 15:20 Urine RBC (Auto) 0-4 /hpf (0-4) 08/05/22 15:20 U Hyaline Cast (Auto) 1-5 /lpf (0-5) 08/05/22 15:20 U Epithel Cells (Auto) >30 /lpf (0-5) H 08/05/22 15:20 Urine Bacteria (Auto) 1+ (Negative) H 08/05/22 15:20 Adenovirus (PCR) Not Detected (NotDetected) 08/06/22 11:04 B. pertussis DNA (PCR) Not Detected (NotDetected) 08/06/22 11:04 B.parapertussis DNA PCR Not Detected (NotDetected) 08/06/22 11:04 C. pneumoniae DNA (PCR) Not Detected (NotDetected) 08/06/22 11:04 Coronavirus OC43 (PCR) Not Detected (NotDetected) 08/06/22 11:04 Coronavirus HKU1 (PCR) Not Detected (NotDetected) 08/06/22 11:04 Coronavirus 229E (PCR) Not Detected (NotDetected) 08/06/22 11:04 SARS-CoV-2 (PCR) Not Detected (NotDetected) 08/06/22 11:04 Coronavirus NL63 (PCR) Not Detected (NotDetected) 08/06/22 11:04 Human Metapneumovir PCR Not Detected (NotDetected) 08/06/22 11:04 Influenza Type A (PCR) Not Detected (NotDetected) 08/06/22 11:04 Influenza Type B (PCR) Not Detected (NotDetected) 08/06/22 11:04 M. pneumoniae (PCR) Not Detected (NotDetected) 08/06/22 11:04 Parainfluenza 1 (PCR) Not Detected (NotDetected) 08/06/22 11:04 Parainfluenza 2 (PCR) Not Detected (NotDetected) 08/06/22 11:04 Parainfluenza 3 (PCR) Not Detected (NotDetected) 08/06/22 11:04 Parainfluenza 4 (PCR) Not Detected (NotDetected) 08/06/22 11:04 RSV (RT-PCR) Negative (Neg) 08/05/22 15:20 RSV (PCR) Not Detected (NotDetected) 08/06/22 11:04 Entero/Rhino (PCR) DETECTED (NotDetected) A* 08/06/22 11:04 Impressions Abdomen/Pelvis CT 08/05/22 14:55 CT abd pelvis IV con only CLINICAL HISTORY: n/v TECHNIQUE: Helical axial images of the abdomen and pelvis were obtained and displayed. Automated dose lowering techniques and/or adjustment according to patient size were utilized for this exam. This exam was performed with intravenous contrast. CT DOSE: 5110.32 mGy.cm COMPARISON: Comparison is made to CT abdomen pelvis 05/09/2019 FINDINGS: Lower chest: Faint bilateral lower lung airspace opacities are seen. Liver: Unremarkable. No focal lesions are seen. Gallbladder and biliary tree: Cholelithiasis is seen without evidence of cholecystitis. No intra- or extrahepatic biliary ductal dilation. Pancreas: Fatty replacement of the pancreas is seen. Spleen: Unremarkable. Adrenals: Unremarkable. Kidneys and ureters: Bilateral renal stones are seen. Lobular contour of the kidneys noted. Bladder: Limited evaluation due to underdistention. Reproductive organs: A left ovarian cyst is seen. Bowel: Unremarkable appearance of the bowel. The appendix is normal. Patient is status post gastric bypass surgery. Lymph nodes Retroperitoneal: Unremarkable. Pelvic: Unremarkable. Mesenteric: Unremarkable. Peritoneum: Normal. Vessels: Unremarkable. Abdominal wall: Fat-containing umbilical hernias are seen. Small fat-containing bilateral inguinal hernias are noted. Bones: Unremarkable. IMPRESSION: 1. Cholelithiasis is seen. No CT evidence of cholecystitis. 2. Bilateral nonobstructive nephrolithiasis. The appendix is normal. 3. Additional findings as above. ACT 112: Negative or not required by law. Electronically signed by: Raman Flores M.D. 08/05/2022 3:59 PM Chest X-Ray 08/05/22 14:55 XR chest 1V portable HISTORY: cough fever COMPARISON: Chest 11/10/2019. FINDINGS: The heart remains enlarged. Mild pulmonary vascular congestion has improved. No new focal lung consolidations to suggest a pneumonia. No pleural effusions. No pneumothorax. Surgical clips seen within the left upper quadrant. IMPRESSION: Stable cardiomegaly with interval improvement in the mild pulmonary vascular congestion. ACT 112: Negative or not required by law. Electronically signed by: Tank Calvillo M.D. 08/05/2022 4:[address] 08/05/22 14:[address] DOSE: HISTORY: Headache. Dizziness. TECHNIQUE: Multiaxial CT images of the head were performed without the use of intravenous contrast. Automated exposure control was utilized for this study. A dose lowering technique was utilized adhering to the principles of ALARA. Comparison: None. Findings: The paranasal sinuses and mastoid air cells are clear. The calvarium and skull base are intact. The ventricles and sulci are within normal limits. There is no mass, hematoma, midline shift, or acute infarct. Stable small focus of encephalomalacia within the left midbrain likely representing an old infarct. Impression: No acute intracranial abnormality. ACT 112: Negative or not required by law. Electronically signed by: Tank Calvillo M.D. 08/05/2022 3:51 PM Ordered Studies 08/05/22 14:55 CT Abd and Pelvis [CT abd pelvis IV con only] Stat CT head/brain wo con Stat Hospital Course (1) Acute electrocardiogram changes: (2) Hyperlipidemia: Abnormal EKG T wave inversions from V1 to V6 Patient denies chest pain Troponin negative Echo showed no wall motion abnormality Repeat EKG showed nonspecific T wave changes Advised to follow-up with cardiology as outpatient (3) Upper respiratory infection: Acute Bronchitis Secondary to Entero/rhinovirus infection --CXR:Stable cardiomegaly with interval improvement in the mild pulmonary vascular congestion. Procalcitonin 0.25 Saturating well on room air Empirically started on doxycycline Continue low-dose prednisone Nebs as needed Isolation precautions Plan to discharge home today (4) Morbid obesity: - BMI of 46.8 s/p gastric bypass surgery - Diet and exercise encouraged (5) Migraine: H/O Migraine Pain meds PRN Hyperlipidemia On statin CKD III Monitor renal function H/O SVT Continue home meds (6) MDD (major depressive disorder): (7) KATHARINE (generalized anxiety disorder): - Continue lexapro, seroquel and gabapentin DVT Px: Heparin SQ CODE STATUS: Full Code Disposition Home Total Time Total Time Spent Total Time Spent (In Minutes): 45 mimutes Discharge Plan Discharge Items Patient Disposition: Home - Self-Care Reason For Visit: UPPER RESPIRATORY SYMPTOMS, CHEST HEAVINESS, EKG C Discharge Diagnosis: Acute Bronchitis Entero/rhinovirus infection Abnormal EKG Activity: Per Instructions section Exercise/Sports: Gradually increase as tolerated Non-emergency contact: Primary Care Provider Call non-emergency contact if: you have any medication questions, your symptoms worsen, your pain is concerning for you and you have a fever Follow-up/Referrals: Tip Stark DO [Primary Care Provider] - (Date & Time 08/17/2022 12:00 PM Provider Tip Stark DO Department [facility] ) Diet: Heart Healthy Addtl Attending Provider Instructions: Follow-up with your primary care physician Dr. 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 Follow-up with your physician for results. --- Complete doxycycline, prednisone course as prescribed. Seek immediate medical attention if your symptoms reoccur or worsen Please take all medications as instructed on discharge list below. Please call if you have any questions or problems. You can reach a [facility] hospitalist on duty at [facility] 24 hours a day by calling [phone] Pending Studies at Discharge: Yes Studies:: Blood Cultures Stand-Alone Forms: My [facility], Smoking Cessation Medications and DC Order Prescriptions: New doxycycline hyclate 100 mg Capsule 100 mg PO BID Qty: 9 0RF prednisone 10 mg Tablet 10 mg PO DAILY Qty: 5 0RF benzonatate 100 mg Capsule 100 mg PO TID PRN (Reason: Cough) Qty: 20 0RF Continued atorvastatin 10 mg tablet 10 mg PO HS metoprolol succinate 50 mg tablet extended release 24 hr 50 mg PO HS quetiapine 200 mg tablet 200 mg PO HS ergocalciferol (vitamin D2) [Vitamin D2] 50,000 unit capsule 50,000 unit PO WK Rx Instructions: TAKES ON WEDNESDAYS verapamil 120 mg capsule,ext rel. pellets 24 hr 120 mg PO HS escitalopram oxalate 20 mg tablet 20 mg PO HS gabapentin 300 mg Capsule 300 mg PO HS melatonin 10 mg Tablet 10 mg PO HS PRN (Reason: Sleep) Discharge Orders: Discharge Order (Routine); Ordered 08/08/22 Ordered By: Bruce Grant/Other Patient Handouts: Prediabetes, 5 Steps for Eating Healthier Admission Data Admit Date/Time: 08/05/22 17:52 Attending Provider: Bruce Overton Admit Provider: Mell Sahu Primary Care Provider: Tip Stark Other Providers: Mell Sahu
== END 2022-08-08 15:05 | disposition home or self-care (01) | DRG 202 ==
LOC: ED 11:57 → 2S 17:52 → SUATTDRO 17:52 → 2S 19:33 → 2W 08-07 15:59

== ENCOUNTER 2023-02-24 11:14 | Inpatient (IN) ==
[2023-02-24] MEDS ORDERED: SODIUM CHLORIDE 0.9% 1000ML 1,000 ML IV SCH (11:30)
[2023-02-24] MEDS ORDERED: ONDANSETRON INJ 2 MG/ML 2 ML VIAL IV STA ×2 (11:52→14:01)
[2023-02-24] MEDS ORDERED: MoRPHine SULFATE 4 MG/ML 1 ML CARP\\VIAL IV STA (11:52)
[2023-02-24 12:15] LABS: Basophils # (auto) 0.02 K/uL (0-0.2); Basophils % (auto) 0.2 %; Eosinophils # (auto) 0.03 K/uL (0-0.50); Eosinophils % (auto) 0.4 %; Hematocrit (blood only) 37.1 % (37.0-47.0); Hemoglobin 11.5 g/dl (12.0-16.0); Immature Granulocytes # (auto) 0.01 K/uL (0.01-0.20); Immature Granulocytes % (auto) 0.1 %; Lymphocytes # (auto) 0.85 K/uL (1.2-3.4); Lymphocytes % (auto) 10.2 %; Mean Corpuscular Hemoglobin 22.9 pg (25.0-34.0); Mean Corpuscular Volume 73.8 fL (80.0-100.0); Monocytes # (auto) 0.67 K/uL (0.11-0.59); Monocytes % (auto) 8.1 %; Neutrophils # (auto) 6.72 K/uL (1.40-6.50); Platelet Count 310 K/uL (130-400); RDW Coefficient of Variation 16.4 % (11.5-14.5); RDW Standard Deviation 42.4 fL (36.4-46.3); Red Blood Count 5.03 M/uL (4.20-5.40)
[2023-02-24 12:33] LABS: Albumin Globulin Ratio 1.2 (0.9-2); Albumin Level 3.7 gm/dl (3.4-5.0); BUN Creatinine Ratio 8.2 (10-20); Bilirubin,Total 0.7 mg/dl (0.2-1.0); Calcium 8.7 mg/dl (8.6-10.3); Creatinine Clr Calc Pharmacy 41.7 ml/min; Est GFR (African American) 31.4 ml/min; Est GFR (Non-African American) 27.1 ml/min; Globulin 3.1 gm/dl (2.5-4.0); Potassium 3.9 mmol/L (3.5-5.1); Total Protein 6.8 gm/dl (6.0-8.3)
--- NOTE | 2023-02-24 12:46 | CT Scan Report ---
CT abd pelvis wo con CLINICAL HISTORY: R flank pain, h/o stones, gallstones, ovarian cyst TECHNIQUE: Helical axial images of the abdomen and pelvis were obtained. Automated dose lowering tech niques and/or adjustment according to patient size were utilized for this exam. This exam was perfor med without intravenous contrast. CT DOSE: 1493.32 mGy.cm COMPARISON: None available at the time of this dictation. FINDINGS: Lower chest: Bibasilar atelectasis versus scarring is seen. Liver: Unremarkable. No focal lesions are seen. Gallbladder and biliary tree: Cholelithiasis is seen without evidence of cholecystitis. No intra- or extrahepatic biliary ductal dilation. Pancreas: Fatty replacement of the pancreas is seen. Spleen: Unremarkable. Adrenals: Unremarkable. Kidneys and ureters: Right hydronephrosis and hydroureter is seen. There is a distal ureter stone omid suring approximately 5 mm. Additional nonobstructive stones are seen bilaterally. Bladder: Unremarkable. Reproductive organs: A left adnexal cystic lesion is seen. This is similar to appearance on prior exa m. Bowel: Diverticulosis is seen without evidence of diverticulitis. Lymph nodes Retroperitoneal: Unremarkable. Pelvic: Unremarkable. Mesenteric: Unremarkable. Peritoneum: Normal. Vessels: Atherosclerotic calcifications are seen. Abdominal wall: Fat-containing infraumbilical hernia is noted. Bones: Unremarkable. IMPRESSION: Right distal ureteric stone with associated hydronephrosis and hydroureter. ACT 112: Negative or not required by law. Electronically signed by: Raman Flores M.D. 02/24/2023 12:44 PM
[2023-02-24] MEDS ORDERED: HYDROmorphone INJ 0.5 MG/0.5 ML SYR IV STA (14:01)
[2023-02-24 15:01] LABS: Appearance Urine Clear (Clear); Bilirubin Urine Negative (Negative); Blood Urine Negative (Negative); Color Urine Yellow; Glucose Urine UA Negative (Negative); Ketones Urine Trace (Negative); Leukocyte Esterase Urine Negative (Negative); Nitrite Urine Negative (Negative); Protein Urine Negative (Negative); Specific Gravity Urine 1.021 (1.000-1.030); Urobilinogen Urine Negative (Negative); pH Urine 5.5 (4.5-7.5)
--- NOTE | 2023-02-24 15:52 | History & Physical Report ---
Date of Service February 24, 2023 Assessment & Plan (1) Calculus of distal right ureter: (2) Hydronephrosis, right: (3) Renal colic: Plan: Patient is 62-year-old female with PMH HTN, HLD, DM II, chronic anemia, anxiety, depression, obesity, presented to ER with complaint of right flank pain x 1 day with associated nausea and vomiting. Denies hematuria, dysuria, fever, chills In ER afebrile, vital stable. No leukocytosis. BUN: 16, Cr: 1.95 (baseline 1.3- 1.4). UA: unremarkable CT abdomen pelvis: Right distal ureteric stone with associated hydronephrosis and hydroureter. In ER given 1L NSS, Zofran, morphine 4 mg IV, Dilaudid 0.5 mg IV IVF Strain all urine Rocephin empiric antibiotic for now Scheduled Tylenol, prn oxycodone and Dilaudid for pain. Will hold on Toradol with current ALLISON NPO midnight Urology consult. ER provider spoke to library acquisitions technician and recommended conservative measures for now and will see pt tomorrow. CBC, BMP in am (4) ALLISON (acute kidney injury): (5) CKD (chronic kidney disease), stage III: Plan: ALLISON on CKD IIIb BUN: 16, Cr: 1.95 (baseline 1.3-1.4) IVF Urology consult as above BMP in a.m. (6) HTN (hypertension): Plan: Stable Continue verapamil, metoprolol succinate (7) Prediabetes: Plan: A1c: 6.3 on 08/06/2022 Diet controlled Diabetic diet Monitor glucose on morning labs (8) Hyperlipidemia: Plan: Continue atorvastatin (9) Chronic anemia: Plan: Hgb: 11.5. Baseline 10-11 Patient previously prescribed ferrous sulfate however reports stopped taking (10) KATHARINE (generalized anxiety disorder): (11) MDD (major depressive disorder): Plan: Continue escitalopram, Seroquel DVT Prophylaxis SCDs Full Code as per discussion with pt Follows with Dr Stark for routine care Pt was seen and care coordinated with Dr Grier. See addendum I spent a total of 75 minutes reviewing notes, outpatient records, labs, medication, coordinating, documenting and providing care for this patient excluding time spent in the performance of separately billed services. History of Present Illness Chief Complaint: Right flank pain Primary Care Provider: Tip Stark DO Patient is 62-year-old female with PMH HTN, HLD, DM II, chronic anemia, anxiety, depression, obesity, presented to ER with complaint of right flank pain x 1 day. Patient states yesterday started with aching pain along right flank that radiated to right groin. States this morning woke up out of sleep with increased pain to right flank. Also had nausea and vomiting. She reports history kidney stones in the past requiring lithotripsy and stent. Denies fever/chills, diaphoresis, hematemesis, diarrhea, constipation, BERGMAN, dizziness, syncope, CP, SOB, cough, sore throat, other abdominal pain, extremity weakness, extremity edema, rashes, dysuria, urinary frequency, urinary retention, hematuria. Allergies Allergy/AdvReac Type Severity Reaction Status Date / Time potassium AdvReac Severe Cardiac Verified 02/24/23 16:33 issues fluoxetine AdvReac Intermediate Hallucinati Verified 02/24/23 16:33 ons lorazepam AdvReac Intermediate Hallucinati Verified 02/24/23 16:33 ons Home Medications Medication Instructions Recorded Confirmed Type atorvastatin 10 mg tablet 10 mg PO HS 05/09/19 02/24/23 History escitalopram oxalate 20 mg tablet 20 mg PO HS 05/09/19 02/24/23 History metoprolol succinate 50 mg 50 mg PO HS 05/09/19 02/24/23 History tablet,extended release 24 hr quetiapine 200 mg tablet 200 mg PO HS 05/09/19 02/24/23 History verapamil 120 mg 24 hr 120 mg PO HS 05/09/19 02/24/23 History capsule,extended release melatonin 10 mg tablet 10 mg PO HS PRN Sleep 08/05/22 02/24/23 History Past Med/Surg History Medical History (Updated 02/24/23 @ 17:28 by Madison Cortez PA-C) Chronic anemia CKD (chronic kidney disease), stage III Diabetes Per records Last Hgb A1C 6.4 per 10/30/20 PCP note. Diet controlled KATHARINE (generalized anxiety disorder) HTN (hypertension) Hx of supraventricular tachycardia Hyperlipidemia Kidney stones MDD (major depressive disorder) Migraine Morbid obesity Prediabetes PVC (premature ventricular contraction) Stroke Around 1989- residual mild weakness on right side. Surgical History History of arthroscopy of left shoulder History of x 2 Hx of arthroscopy of right knee Hx of dilation and curettage x 2 Hx of gastric bypass Family History Other Cancer Diabetes Dyslipidemia Heart disease Hypertension Social History Smoking Status: Never smoker Second Hand Exposure: No; Do You Dip or Chew Tobacco: No; Hx Alcohol Use: No Hx Substance Use: No Preferred Language: Burmese Communication Ability: Effective Rugby League Footballer Required: No Beliefs That Will Affect Care: None Current Living Situation: Alone Current Living Situation Comment: Lives home with family Other Information That Helps Us Care for You: No Feels Safe at Home: Yes Safety Concerns: Feels Safe At This Time Assistive Devices: Glasses Review of Systems Review of Systems: All systems reviewed & are unremarkable except as noted in HPI & below Physical Exam Physical Exam: General: no distress, obese Head: normocephalic, atraumatic Eyes: conjunctiva non-injected, anicteric ENT: normal inspection external ears, nose, mucous membranes moist Neck: supple, trachea midline Lungs: clear, no respiratory distress, no wheezing/rhonchi/rales CV: RRR, no murmur, no pretibial edema Abd: +protuberant, normal BS, soft, +slight tenderness to right flank, otherwise abdomen non-tender Ext: no cyanosis, no calf tenderness Neuro: A&O x 3, no focal deficits noted, normal affect Skin: warm, dry Results & Data Results & Data Vital Signs (Past 12 Hours) Vital Signs Temp Pulse Pulse Resp BP BP Pulse Ox 02/24/23 14:34 64 18 137/88 94 02/24/23 14:12 64 14 132/63 94 02/24/23 11:19 36.8 C 71 20 142/83 H 97 O2 Del Method 02/24/23 14:34 Room Air 02/24/23 14:12 Room Air 02/24/23 11:19 Room Air Laboratory Results Short CBC 02/24/23 Range/Units 11:52 WBC 8.30 (4.8-10.8) K/ul Hgb 11.5 L (12.0-16.0) g/dl Hct 37.1 (37.0-47.0) % Plt Count 310 (130-400) K/uL BMP 02/24/23 11:52 Sodium 137 Potassium 3.9 Chloride 106 Carbon Dioxide 24 BUN 16 Creatinine 1.95 H Glucose 142 H Calcium 8.7 Liver Function 02/24/23 Range/Units 11:52 Total Bilirubin 0.7 (0.2-1.0) mg/dl AST 14 (13-39) U/L ALT 10 (7-52) U/L Alkaline Phosphatase 107 H (34-104) U/L Albumin 3.7 (3.4-5.0) gm/dl Urine 02/24/23 Range/Units 14:17 Urine Color Yellow Urine Appearance Clear (Clear) Urine pH 5.5 (4.5-7.5) Ur Specific [place] 1.021 (1.000-1.030) Urine Protein Negative (Negative) Urine Glucose (UA) Negative (Negative) Diagnostic Findings Abdomen/Pelvis CT 02/24/23 11:52 CT abd pelvis wo con CLINICAL HISTORY: R flank pain, h/o stones, gallstones, ovarian cyst TECHNIQUE: Helical axial images of the abdomen and pelvis were obtained. Automated dose lowering techniques and/or adjustment according to patient size were utilized for this exam. This exam was performed without intravenous contrast. CT DOSE: 1493.32 mGy.cm COMPARISON: None available at the time of this dictation. FINDINGS: Lower chest: Bibasilar atelectasis versus scarring is seen. Liver: Unremarkable. No focal lesions are seen. Gallbladder and biliary tree: Cholelithiasis is seen without evidence of cholecystitis. No intra- or extrahepatic biliary ductal dilation. Pancreas: Fatty replacement of the pancreas is seen. Spleen: Unremarkable. Adrenals: Unremarkable. Kidneys and ureters: Right hydronephrosis and hydroureter is seen. There is a distal ureter stone measuring approximately [address] ones are seen bilaterally. Bladder: Unremarkable. Reproductive organs: A left adnexal cystic lesion is seen. This is similar to appearance on prior exam. Bowel: Diverticulosis is seen without evidence of diverticulitis. Lymph nodes Retroperitoneal: Unremarkable. Pelvic: Unremarkable. Mesenteric: Unremarkable. Peritoneum: Normal. Vessels: Atherosclerotic calcifications are seen. Abdominal wall: Fat-containing infraumbilical hernia is noted. Bones: Unremarkable. IMPRESSION: Right distal ureteric stone with associated hydronephrosis and hydroureter. ACT 112: Negative or not required by law. Electronically signed by: Raman Flores M.D. 02/24/2023 12:44 PM Supervising Physician Co-Signing Physician Notes 62-year-old female with PMH HTN, HLD, DM II, chronic anemia, anxiety, depression, obesity, presented to ER with complaint of right flank pain x 1 day with associated nausea and vomiting. Denies hematuria, dysuria, fever, chills In ER afebrile, vital stable. No leukocytosis. BUN: 16, Cr: 1.95 (baseline 1.3- 1.4). UA: unremarkable CT abdomen pelvis: Right distal ureteric stone with associated hydronephrosis and hydroureter. Urology consult called . Pain well controlled at this point.
--- NOTE | 2023-02-24 16:56 | Emergency Department Note ---
ED Provider Note History of Present Illness Chief Complaint: Flank Pain Stated Complaint: FLANK PAIN, ABD PAIN Time Seen by Provider: 02/24/23 11:38 62-year-old female who presents the emergency department with complaint of severe right flank pain that started yesterday morning, and has persisted. The patient reports a prior history of kidney stones, and thinks that that may be what is causing her pain. She did have some nausea and vomiting this morning. Patient also reports a prior history of gallstones and ovarian cyst. She rates her discomfort a 9 out of 10. Home Medications Medication Instructions Recorded Confirmed Type atorvastatin 10 mg tablet 10 mg PO HS 05/09/19 02/24/23 History escitalopram oxalate 20 mg tablet 20 mg PO HS 05/09/19 02/24/23 History metoprolol succinate 50 mg 50 mg PO HS 05/09/19 02/24/23 History tablet,extended release 24 hr quetiapine 200 mg tablet 200 mg PO HS 05/09/19 02/24/23 History verapamil 120 mg 24 hr 120 mg PO HS 05/09/19 02/24/23 History capsule,extended release gabapentin 300 mg capsule 300 mg PO HS 08/05/22 02/24/23 History melatonin 10 mg tablet 10 mg PO HS PRN Sleep 08/05/22 02/24/23 History Allergies Allergy/AdvReac Type Severity Reaction Status Date / Time potassium AdvReac Severe Cardiac Verified 02/24/23 16:33 issues fluoxetine AdvReac Intermediate Hallucinati Verified 02/24/23 16:33 ons lorazepam AdvReac Intermediate Hallucinati Verified 02/24/23 16:33 ons Past Med/Surg History Medical History Diabetes Per records Last Hgb A1C 6.4 per 10/30/20 PCP note. Diet controlled KATHARINE (generalized anxiety disorder) Hx of supraventricular tachycardia Hyperlipidemia Kidney stones MDD (major depressive disorder) Migraine Morbid obesity PVC (premature ventricular contraction) Stroke Around 1989- residual mild weakness on right side. Surgical History History of arthroscopy of left shoulder History of x 2 Hx of arthroscopy of right knee Hx of dilation and curettage x 2 Hx of gastric bypass Family History Other Cancer Diabetes Dyslipidemia Heart disease Hypertension Social History Smoking Status: Never smoker Second Hand Exposure: No; Do You Dip or Chew Tobacco: No; Hx Alcohol Use: No Hx Substance Use: No Preferred Language: Sami Communication Ability: Effective Waiter Required: No Beliefs That Will Affect Care: None Current Living Situation: Family Current Living Situation Comment: Lives home with family Feels Safe at Home: Yes Assistive Devices: None Physical Exam Vital Signs Vital Signs - 24 hr 02/24/23 11:19 02/24/23 14:12 02/24/23 14:34 Temperature 36.8 C Temperature Source Temporal Artery Scan Pulse Rate 71 Pulse Rate [Finger] 64 64 Pulse Rhythm Regular Pulse Rhythm [Finger] Regular Respiratory Rate 20 14 18 Respiratory Effort / Characteristics Non-Labored Spontaneous Respiratory Depth Normal Normal Respiratory Pattern Regular Blood Pressure 142/83 H Blood Pressure [Left Arm] 132/63 137/88 Blood Pressure Mean 102 Blood Pressure Mean [Left Arm] 86 104 Blood Pressure Position Sitting Pulse Oximetry 97 94 94 Oxygen Delivery Method Room Air Room Air Room Air Sepsis Recent Fever Within 48 Hours No Sepsis New/Unexplained Change in Mental Status No Sepsis Action Taken by Nursing No Action Required CONSTITUTIONAL: Obese female in moderately severe discomfort. HEENT: No scleral icterus or conjunctival injection/pallor. RESPIRATORY: Clear to auscultation bilaterally with no wheezing, crackles, rhonchi or stridor. CARDIOVASCULAR: Regular rate and rhythm with no murmurs, rubs or gallops. GASTROINTESTINAL: Bowel sounds present in all quadrants. Patient does not have any focal abdominal tenderness to palpation or CVA tenderness. MUSCULOSKELETAL: Full range of motion of all joints without discomfort. INTEGUMENTARY: No rash or other significant dermatologic conditions noted. HEMATOLOGIC: No ecchymosis or petechiae. PSYCHIATRIC: Positive affect. NEUROLOGIC: No focal neurologic deficits noted. Course Course Patient history and physical exam were performed. Nurses notes were reviewed. Vital signs were reviewed and were normal. I did review prior medical records, showing that the patient was last seen by urology (Dr. Blackwell) in October 2020. The patient reports that she has had a prior history of laser lith otripsy, however our medical records do not go back far enough to see this history. IV access was established, and labs were drawn. The patient was initially hydrated with normal saline, and administered IV morphine and Zofran. Review of initial labs did not show any leukocytosis. CMP shows a mildly bumped creatinine of 1.95, however the patient does have baseline creatinine elevation when looking at prior medical records. Glucose is elevated at 142. LFTs and lipase are normal. The patient was initially unable to provide a urine specimen. A noncontrast CT of the abdomen and pelvis shows a 5 mm distal right ureteral calculus with hydroureteronephrosis. Upon reevaluation, the patient was still having significant pain and nausea. At this point, she was administered IV Dilaudid and Zofran. The patient was eventually able to produce a urine specimen. While awaiting urinalysis test results, the patient reported that she did not feel well enough for discharge home. At this point, I did reach out to [facility] (CHYNA Dickerson) who indicated that an emergent stent is not warranted at this time. She will review urinalysis test results, and discussed the case further with Dr. Reynoso, urologist on-call. Urinalysis was completed with no evidence for infection. At this point, urology has recommended hospitalist admission for pain control, and they will reassess the patient in the morning to determine need for any further surgical intervention. The patient was in agreement with this plan as well. I then reached out to the [facility] hospitalist group (Dr. Grier) who has agreed to bring in the patient for pain control and overnight management. Please see the hospitalist and urology dictations for further treatment and final disposition. Administered Medications Discontinued Medications Hydromorphone HCl (Hydromorphone Inj 0.5 Mg/0.5 Ml Syr) 0.5 mg IV NOW STA Stop: 02/24/23 14:02 Last Admin: 02/24/23 14:14 Dose: 0.5 mg Documented By: KARINA Sodium Chloride (Nss 1000ml) 1,000 mls @ 999 mls/hr IV .Q1H1M MADONNA Stop: 02/24/23 12:30 Last Infusion: 02/24/23 14:21 Dose: 0 mls/hr Documented By: Admin: 02/24/23 11:54 Dose: 999 mls/hr Documented By: KARINA Morphine Sulfate (Morphine Sulfate 4 Mg/Ml 1 Ml Carp\Vial) 4 mg IV NOW STA Stop: 02/24/23 11:53 Last Admin: 02/24/23 11:59 Dose: 4 mg Documented By: KARINA Ondansetron HCl (Ondansetron Inj 2 Mg/Ml 2 Ml Vial) 4 mg IV NOW STA Stop: 02/24/23 11:53 Last Admin: 02/24/23 12:00 Dose: 4 mg Documented By: KARINA Ondansetron HCl (Ondansetron Inj 2 Mg/Ml 2 Ml Vial) 4 mg IV NOW STA Stop: 02/24/23 14:02 Last Admin: 02/24/23 14:13 Dose: 4 mg Documented By: KARINA Medical Decision Making Medical Records Attestation: I reviewed the patient's medical records. Home Medications was personally reviewed by me Laboratory Data Attestation: I reviewed the patient's lab results. 02/24/23 11:52 02/24/23 11:52 Lab Results 02/24/23 02/24/23 02/24/23 Range/Units 11:52 11:52 14:17 WBC 8.30 (4.8-10.8) K/ul RBC 5.03 (4.20-5.40) M/uL Hgb 11.5 L (12.0-16.0) g/dl Hct 37.1 (37.0-47.0) % MCV 73.8 L (80.0-100.0) fL MCH 22.9 L (25.0-34.0) pg MCHC 31.0 L (32.0-36.0) g/dL RDW Std Deviation 42.4 (36.4-46.3) fL RDW Coeff of Rebecca 16.4 H (11.5-14.5) % Plt Count 310 (130-400) K/uL MPV 10.0 (9.4-12.4) fL Immature Gran % (Auto) 0.1 % Neut % (Auto) 81.0 % Lymph % (Auto) 10.2 % Gila % (Auto) 8.1 % Eos % (Auto) 0.4 % Baso % (Auto) 0.2 % Neut # (Auto) 6.72 H (1.40-6.50) K/uL Lymph # (Auto) 0.85 L (1.2-3.4) K/uL Gila # (Auto) 0.67 H (0.11-0.59) K/uL Eos # (Auto) 0.03 (0-0.50) K/uL Baso # (Auto) 0.02 (0-0.2) K/uL Immature Gran # (Auto) 0.01 (0.01-0.20) K/uL Sodium 137 (136-145) mmol/L Potassium 3.9 (3.5-5.1) mmol/L Chloride 106 (98-107) mmol/L Carbon Dioxide 24 (21-32) mmol/L Anion Gap 7 (3-11) BUN 16 (6-23) mg/dl Creatinine 1.95 H (0.6-1.2) mg/dl Est Cr Clr Drug Dosing 41.7 ml/min Est GFR ( Amer) 31.4 ml/min Est GFR (Non-Af Amer) 27.1 ml/min BUN/Creatinine Ratio 8.2 L (10-20) Glucose 142 H (70-99(Fasting)) mg/dl Calcium 8.7 (8.6-10.3) mg/dl Total Bilirubin 0.7 (0.2-1.0) mg/dl AST 14 (13-39) U/L ALT 10 (7-52) U/L Alkaline Phosphatase 107 H (34-104) U/L Total Protein 6.8 (6.0-8.3) gm/dl Albumin 3.7 (3.4-5.0) gm/dl Globulin 3.1 (2.5-4.0) gm/dl Albumin/Globulin Ratio 1.2 (0.9-2) Lipase 18 (11-82) U/L Urine Color Yellow Urine Appearance Clear (Clear) Urine pH 5.5 (4.5-7.5) Ur Specific [place] 1.021 (1.000-1.030) Urine Protein Negative (Negative) Urine Glucose (UA) Negative (Negative) Urine Ketones Trace H (Negative) Urine Blood Negative (Negative) Urine Nitrite Negative (Negative) Urine Bilirubin Negative (Negative) Urine Urobilinogen Negative (Negative) Ur Leukocyte Esterase Negative (Negative) SARS-CoV-2, RNA, NAAT (NEGATIVE) 02/24/23 Range/Units 15:51 WBC (4.8-10.8) K/ul RBC (4.20-5.40) M/uL Hgb (12.0-16.0) g/dl Hct (37.0-47.0) % MCV (80.0-100.0) fL MCH (25.0-34.0) pg MCHC (32.0-36.0) g/dL RDW Std Deviation (36.4-46.3) fL RDW Coeff of Rebecca (11.5-14.5) % Plt Count (130-400) K/uL MPV (9.4-12.4) fL Immature Gran % (Auto) % Neut % (Auto) % Lymph % (Auto) % Gila % (Auto) % Eos % (Auto) % Baso % (Auto) % Neut # (Auto) (1.40-6.50) K/uL Lymph # (Auto) (1.2-3.4) K/uL Gila # (Auto) (0.11-0.59) K/uL Eos # (Auto) (0-0.50) K/uL Baso # (Auto) (0-0.2) K/uL Immature Gran # (Auto) (0.01-0.20) K/uL Sodium (136-145) mmol/L Potassium (3.5-5.1) mmol/L Chloride (98-107) mmol/L Carbon Dioxide (21-32) mmol/L Anion Gap (3-11) BUN (6-23) mg/dl Creatinine (0.6-1.2) mg/dl Est Cr Clr Drug Dosing ml/min Est GFR ( Amer) ml/min Est GFR (Non-Af Amer) ml/min BUN/Creatinine Ratio (10-20) Glucose (70-99(Fasting)) mg/dl Calcium (8.6-10.3) mg/dl Total Bilirubin (0.2-1.0) mg/dl AST (13-39) U/L ALT (7-52) U/L Alkaline Phosphatase (34-104) U/L Total Protein (6.0-8.3) gm/dl Albumin (3.4-5.0) gm/dl Globulin (2.5-4.0) gm/dl Albumin/Globulin Ratio (0.9-2) Lipase (11-82) U/L Urine Color Urine Appearance (Clear) Urine pH (4.5-7.5) Ur Specific [place] (1.000-1.030) Urine Protein (Negative) Urine Glucose (UA) (Negative) Urine Ketones (Negative) Urine Blood (Negative) Urine Nitrite (Negative) Urine Bilirubin (Negative) Urine Urobilinogen (Negative) Ur Leukocyte Esterase (Negative) SARS-CoV-2, RNA, NAAT NEGATIVE (NEGATIVE) Imaging Data Attestation: I personally reviewed and interpreted this imaging study as follows: My Impression: My interpretation of a noncontrast CT of the abdomen pelvis shows a 5 mm distal right ureteral calculus with hydroureteronephrosis. Additional bilateral nephrolithiases are also noted. No other acute findings are noted in the abdomen or pelvis, including appendicitis, diverticulitis, obstruction or free air. Radiologist reports were also reviewed. Radiologist's Impression: Abdomen/Pelvis CT 02/24/23 11:52 CT abd pelvis wo con CLINICAL HISTORY: R flank pain, h/o stones, gallstones, ovarian cyst TECHNIQUE: Helical axial images of the abdomen and pelvis were obtained. Automated dose lowering techniques and/or adjustment according to patient size were utilized for this exam. This exam was performed without intravenous contrast. CT DOSE: 1493.32 mGy.cm COMPARISON: None available at the time of this dictation. FINDINGS: Lower chest: Bibasilar atelectasis versus scarring is seen. Liver: Unremarkable. No focal lesions are seen. Gallbladder and biliary tree: Cholelithiasis is seen without evidence of cholecystitis. No intra- or extrahepatic biliary ductal dilation. Pancreas: Fatty replacement of the pancreas is seen. Spleen: Unremarkable. Adrenals: Unremarkable. Kidneys and ureters: Right hydronephrosis and hydroureter is seen. There is a distal ureter stone measuring approximately 5 mm. Additional nonobstructive stones are seen bilaterally. Bladder: Unremarkable. Reproductive organs: A left adnexal cystic lesion is seen. This is similar to appearance on prior exam. Bowel: Diverticulosis is seen without evidence of diverticulitis. Lymph nodes Retroperitoneal: Unremarkable. Pelvic: Unremarkable. Mesenteric: Unremarkable. Peritoneum: Normal. Vessels: Atherosclerotic calcifications are seen. Abdominal wall: Fat-containing infraumbilical hernia is noted. Bones: Unremarkable. IMPRESSION: Right distal ureteric stone with associated hydronephrosis and hydroureter. ACT 112: Negative or not required by law. Electronically signed by: Raman Flores M.D. 02/24/2023 12:44 PM MDM Narrative See ED Course section for further details of today's visit. The patient presents the emergency department with complaint of acute right flank pain since yesterday morning. CT imaging does show evidence for a moderately obstructing 5 mm distal right ureteral calculus. The patient does have a mild elevated creatinine. Urinalysis does not show evidence for infection. The patient does not warrant emergent surgery at this time after discussing the case further with urology. They have recommended that the patient be admitted by the hospitalist group for further pain management, and urology will reevaluate the patient tomorrow morning to determine the need for any surgical intervention. Laborato ry studies are not suggestive of pancreatitis, cholecystitis or hepatitis. CT imaging also does not show evidence for diverticulitis, bowel obstruction, perforation or appendicitis. Impression Calculus of distal right ureter, Hydronephrosis, right Discharge Plan Visit Data Chief Complaint: Flank Pain Stated Complaint: FLANK PAIN, ABD PAIN ED Provider: Vijay Barr ED Midlevel Provider: Jeovanny Tran Discharge Problem: Calculus of distal right ureter, Hydronephrosis, right Forms Stand Alone Forms: My [facility] Soundsupply Prescriptions Prescriptions: No Action atorvastatin 10 mg tablet 10 mg PO HS metoprolol succinate 50 mg tablet extended release 24 hr 50 mg PO HS quetiapine 200 mg tablet 200 mg PO HS verapamil 120 mg capsule,ext rel. pellets 24 hr 120 mg PO HS escitalopram oxalate 20 mg tablet 20 mg PO HS gabapentin 300 mg Capsule 300 mg PO HS melatonin 10 mg Tablet 10 mg PO HS PRN (Reason: Sleep) Referrals Referrals: Tip Stark DO [Primary Care Provider] -
[2023-02-24] MEDS ORDERED: ACETAMINOPHEN 325 MG TAB PO STA (17:22)
[2023-02-24] MEDS ORDERED: POLYETHYLENE (MIRALAX) 17 GM PACK PO PRN (17:34)
[2023-02-24] MEDS ORDERED: oxyCODONE HCL IR 5 MG TAB (IMMEDIATE RELEASE) PO PRN (17:34)
[2023-02-24] MEDS ORDERED: PROMETHAZINE HCL 12.5 MG in SODIUM CHLORIDE 0.9% 50 ML IV PRN (17:34)
[2023-02-24] MEDS ORDERED: HYDROmorphone INJ 0.5 MG/0.5 ML SYR IV PRN (17:34)
[2023-02-24] MEDS ORDERED: MELATONIN 3 MG TAB PO PRN (18:19)
[2023-02-24] MEDS: SODIUM CHLORIDE 0.9% 1000ML 1,000 ML IV SCH (18:20)
[2023-02-24] MEDS: ACETAMINOPHEN 325 MG TAB PO SCH (18:20)
[2023-02-24] MEDS ORDERED: cefTRIAXone SODIUM 2,000 MG in DEXTROSE 5% 50 ML IV SCH (18:30)
[2023-02-24] MEDS: ESCITALOPRAM OXALATE 20 MG TAB PO SCH (20:03)
[2023-02-24] MEDS: ATORVASTATIN 10 MG TAB PO SCH (20:03)
[2023-02-24] MEDS: VERAPAMIL HCL 120 MG TABCR PO SCH (20:03)
[2023-02-24] MEDS: QUEtiapine FUMARATE 200 MG TAB PO SCH (20:03)
[2023-02-24] MEDS: METOPROLOL SUCC 50MG EXT REL TAB PO SCH (20:03)
[2023-02-25] MEDS: ACETAMINOPHEN 325 MG TAB PO SCH ×2 (02:03→10:01)
[2023-02-25] MEDS: SODIUM CHLORIDE 0.9% 1000ML 1,000 ML IV SCH ×3 (02:17→22:22)
--- NOTE | 2023-02-25 08:05 | Urology Consultation ---
Date of Consultation February 25, 2023 Assessment & Plan (1) Hydronephrosis, right: (2) Calculus of distal right ureter: 62 yo F with history of nephrolithiasis presented to the emergency department on 02/24/2023 with severe right-sided flank pain. CT abdomen and pelvis on arrival showed a 5 mm distal right ureteral stone with resulting hydroureteronephrosis. Patient is afebrile with stable vitals. UA on arrival was not suspicious for infection. She received IV ceftriaxone last evening. No new labs at time of visit this morning. Denies stone passage overnight. Continues to have intermittent flank discomfort. Discussed options for stone management including trial of passage vs surgical intervention inpatient with right ureteral stent placement today. We discussed that her stone has a decent probability of passing spontaneously. Discussed need for stone treatment at a later date if she has ureteral stent placed today. Discussed outpatient surgical options including ESWL or ureteroscopy, laser lithotripsy, and stent placement if pain is controlled. Procedures, success rates, risks, benefits and clinical courses reviewed. Stone free rates were also discussed as well as possibility of multiple procedures. Ureteral stents were discussed as well as post-operative issues and pain management. - Patient elects for surgical intervention today due to ongoing renal colic. - Plan for cystoscopy, right right retrograde pyelogram and right ureteral stent placement today. - Risks and benefits of procedure to be reviewed by Dr. Cervantes. - OR notified. - Will cover with scheduled IV ceftriaxone preoperatively. - Keep n.p.o. for procedure. - Strain all urine. Supervising Physician Co-Signing Physician Notes Discussed patient with WALLY. Agree with plan. Plan to proceed to OR for cystoscopy, retrograde and right ureteral stent placement History of Present Illness Attending Physician: Jeanette Escobar MD History of Present Illness This is a 62-year-old female with past medical history of CKD, hyperlipidemia, diabetes, morbid obesity, and kidney stones who presented to the emergency department on 02/24/2023 with severe right-sided flank pain. CT abdomen and pelvis on arrival showed a 5 mm distal right ureteral stone with resulting hydroureteronephrosis. On arrival she was afebrile and hemodynamically stable. Lab work showed creatinine of 1.95, WBC 8.30, hemoglobin 11.5. Urinalysis showed trace ketones and otherwise unremarkable. ED course included IV fluids, ondansetron, morphine and hydromorphone. She was admitted to the hospital medicine service for pain control. Urology is consulted for right ureteral stone. Patient was seen and examined at bedside this morning. She reports intermittent flank discomfort. No nausea or vomiting. No fever or chills. Voiding spontaneously, no dysuria or hematuria. No chest pain or shortness of breath. She is NPO. Patient has history of bilateral nephrolithiasis with prior surgical intervention including ESWL and ureteroscopy and laser lithotripsy. No additional concerns at this time. Allergies Allergy/AdvReac Type Severity Reaction Status Date / Time potassium AdvReac Severe Cardiac Verified 02/24/23 16:33 issues fluoxetine AdvReac Intermediate Hallucinati Verified 02/24/23 16:33 ons lorazepam AdvReac Intermediate Hallucinati Verified 02/24/23 16:33 ons Home Medications Medication Instructions Recorded Confirmed Type atorvastatin 10 mg tablet 10 mg PO HS 05/09/19 02/24/23 History escitalopram oxalate 20 mg tablet 20 mg PO HS 05/09/19 02/24/23 History metoprolol succinate 50 mg 50 mg PO HS 05/09/19 02/24/23 History tablet,extended release 24 hr quetiapine 200 mg tablet 200 mg PO HS 05/09/19 02/24/23 History verapamil 120 mg 24 hr 120 mg PO HS 05/09/19 02/24/23 History capsule,extended release melatonin 10 mg tablet 10 mg PO HS PRN Sleep 08/05/22 02/24/23 History Patient History Medical History Chronic anemia CKD (chronic kidney disease), stage III Diabetes Per records Last Hgb A1C 6.4 per 10/30/20 PCP note. Diet controlled KATHARINE (generalized anxiety disorder) HTN (hypertension) Hx of supraventricular tachycardia Hyperlipidemia Kidney stones MDD (major depressive disorder) Migraine Morbid obesity Prediabetes PVC (premature ventricular contraction) Stroke Around 1989- residual mild weakness on right side. Surgical History History of arthroscopy of left shoulder History of x 2 Hx of arthroscopy of right knee Hx of dilation and curettage x 2 Hx of gastric bypass Family History Other Cancer Diabetes Dyslipidemia Heart disease Hypertension Social History Smoking Status: Never smoker Second Hand Exposure: No; Do You Dip or Chew Tobacco: No; Hx Alcohol Use: No Hx Substance Use: No Preferred Language: Turkish Communication Ability: Effective Delivery Analyst Required: No Beliefs That Will Affect Care: None Current Living Situation: Alone Current Living Situation Comment: Lives home with family Other Information That Helps Us Care for You: No Feels Safe at Home: Yes Safety Concerns: Feels Safe At This Time Assistive Devices: Glasses Review of Systems Review of Systems: All systems reviewed & are unremarkable except as noted in HPI & below Physical Exam Constitutional: + morbidly obese; no acute distress Respiratory: normal respiratory effort; no respiratory distress and no labored breathing Cardiovascular: Extremities: no pedal edema Gastrointestinal (Abdomen): Inspection/Auscultation: abdomen normal to inspection; abdomen not distended Percussion/Palpation: abdomen soft; abdomen nontender Musculoskeletal: Head/Neck/Chest: normocephalic and head atraumatic Neurologic: moves all extremities and awake Psychiatric: Orientation: alert and oriented x 3 Genitourinary: no CVA tenderness Results & Data Vital Signs (Past 12 Hours) Vital Signs Temp Pulse Resp BP Pulse Ox O2 Del Method 02/25/23 07:13 36.9 C 63 16 110/69 93 Room Air PG Care Time/CCT Total # of Minutes Spent Total Time Spent with Patient: Total time spent is greater than 50% in coordination of care (as documented) at patient's floor/unit and/or counseling patient: Coding Level of Care Code 96015 IN/OBS CONSULT LVL 3,45M Diagnoses Hydronephrosis, right N13.30 Calculus of distal right ureter N20.1
[2023-02-25 08:07] LABS: Hematocrit (blood only) 33.8 % (37.0-47.0); Mean Corpuscular Hemoglobin 22.7 pg (25.0-34.0); Mean Corpuscular Hgb Conc 29.6 g/dL (32.0-36.0); Mean Corpuscular Volume 76.8 fL (80.0-100.0); Mean Platelet Volume 9.7 fL (9.4-12.4); Platelet Count 237 K/uL (130-400); RDW Coefficient of Variation 16.4 % (11.5-14.5); RDW Standard Deviation 44.9 fL (36.4-46.3)
[2023-02-25 09:13] LABS: Calcium 8.3 mg/dl (8.6-10.3); Potassium 4.4 mmol/L (3.5-5.1)
[2023-02-25 09:19] LABS: BUN Creatinine Ratio 8.4 (10-20); Creatinine Clr Calc Pharmacy 36.2 ml/min; Est GFR (African American) 26.4 ml/min; Est GFR (Non-African American) 22.8 ml/min
--- NOTE | 2023-02-25 14:44 | Hospitalist Progress Note ---
Date of Service February 25, 2023 Assessment & Plan (1) Calculus of distal right ureter: (2) Hydronephrosis, right: (3) Renal colic: Plan: Patient is 62-year-old female with PMH HTN, HLD, DM II, chronic anemia, anxiety, depression, obesity, presented to ER with complaint of right flank pain x 1 day with associated nausea and vomiting. Denies hematuria, dysuria, fever, chills CT abdomen pelvis: Right distal ureteric stone with associated hydronephrosis and hydroureter. UA unremarkable Remains afebrile On empiric IV ceftriaxone Urology evaluated the patient this morning and was planning on cystoscopy with stent placement however received message from nursing at 12:00 stating the patient had passed stone. Awaiting urology reeval. (4) ALLISON (acute kidney injury): (5) CKD (chronic kidney disease), stage III: Plan: ALLISON on CKD IIIb Likely multifactorial -prerenal due to vomiting and postobstructive uropathy due to renal calculi Creatinine baseline 1.3-1.4 Creatinine 1.9 --> 2.2 Continue IVF Follow renal functions (6) HTN (hypertension): Plan: BP controlled, Continue verapamil, metoprolol succinate (7) Prediabetes: Plan: A1c: 6.3 on 08/06/2022 Diet controlled Diabetic diet Glucose 105 on a.m. labs (8) Hyperlipidemia: Plan: Continue atorvastatin (9) Chronic anemia: Plan: Hgb: 11.5--> 10.0. Baseline 10-11 Patient previously prescribed ferrous sulfate however reports stopped taking (10) KATHARINE (generalized anxiety disorder): (11) MDD (major depressive disorder): Plan: Continue escitalopram, Seroquel DVT Prophylaxis SCDs Patient seen in collaboration with Dr. Escobar. Admission and Anticipated Discharge Date Admission Date: February 24, 2023 Supervising Physician Co-Signing Physician Notes Patient seen and examined Patient reports right flank pain is significantly improving after passing stone earlier this morning Denied any other complaints Exam notable for obese woman, mild right flank tenderness. Reviewed CT ab/p and labs UA does not suggest UTI Stop IV ceftriaxone Discussed with Uro. Planned cysto had been canceled with passage of stone. Patient will follow up with uro outpatient Pain control. Continue IVF. Recheck BMP in AM Plan for discharge in AM Other plans as detailed by Niya CLEMENTE Subjective Follow-up for renal colic, hydronephrosis, distal right ureteral stone. Patient seen and examined. Reports ongoing right flank pain radiating into the right side of the abdomen however improved since admission. Denies nausea and vomiting. Remains afebrile. Denies fevers and chills. No chest pain or shortness of breath. Patient initially planned for cystoscopy however received message from nursing at 12:00 stating that patient had passed a stone. Physical Exam Constitutional: WD/WN, vitals as above + obese Respiratory: normal respiratory effort, lungs clear to auscultation Cardiovascular: Rate/Rhythm: regular rate and regular rhythm Vessels: normal peripheral pulses Extremities: no edema Gastrointestinal (Abdomen): Percussion/Palpation: + abdomen tender (RLQ/right flank) and abdomen soft Skin: no rashes, warm and dry Neurologic: no focal motor deficits Psychiatric: A+Ox3, euthymic affect Results & Data Results & Data Vital Signs (Past 12 Hours) Vital Signs Temp Pulse Resp BP Pulse Ox O2 Del Method 02/25/23 07:13 36.9 C 63 16 110/69 93 Room Air Laboratory Results Short CBC 02/25/23 Range/Units 07:50 WBC 6.10 (4.8-10.8) K/ul Hgb 10.0 L (12.0-16.0) g/dl Hct 33.8 L (37.0-47.0) % Plt Count 237 (130-400) K/uL BMP 02/25/23 07:50 Sodium 138 Potassium 4.4 Chloride 109 H Carbon Dioxide 25 BUN 19 Creatinine 2.25 H D Glucose 105 H Calcium 8.3 L Urine 02/24/23 Range/Units 14:17 Urine Color Yellow Urine Appearance Clear (Clear) Urine pH 5.5 (4.5-7.5) Ur Specific [place] 1.021 (1.000-1.030) Urine Protein Negative (Negative) Urine Glucose (UA) Negative (Negative)
[2023-02-25] MEDS: ESCITALOPRAM OXALATE 20 MG TAB PO SCH (21:05)
[2023-02-25] MEDS: ATORVASTATIN 10 MG TAB PO SCH (21:05)
[2023-02-25] MEDS: QUEtiapine FUMARATE 200 MG TAB PO SCH (21:05)
[2023-02-25] MEDS: VERAPAMIL HCL 120 MG TABCR PO SCH (21:05)
[2023-02-25] MEDS: METOPROLOL SUCC 50MG EXT REL TAB PO SCH (21:06)
[2023-02-26] MEDS: SODIUM CHLORIDE 0.9% 1000ML 1,000 ML IV SCH (05:41)
[2023-02-26 08:02] LABS: Hematocrit (blood only) 32.5 % (37.0-47.0); Hemoglobin 9.9 g/dl (12.0-16.0); Mean Corpuscular Hgb Conc 30.5 g/dL (32.0-36.0); Mean Corpuscular Volume 75.4 fL (80.0-100.0); Platelet Count 250 K/uL (130-400); RDW Coefficient of Variation 16.5 % (11.5-14.5); RDW Standard Deviation 44.7 fL (36.4-46.3); Red Blood Count 4.31 M/uL (4.20-5.40); White Blood Count 5.09 K/ul (4.8-10.8)
[2023-02-26] MEDS ORDERED: ACETAMINOPHEN 500 MG TAB PO PRN (08:12)
[2023-02-26 08:23] LABS: BUN Creatinine Ratio 10.3 (10-20); Calcium 8.1 mg/dl (8.6-10.3); Creatinine Clr Calc Pharmacy 52.2 ml/min; Est GFR (African American) 41.1 ml/min; Est GFR (Non-African American) 35.5 ml/min
--- NOTE | 2023-02-26 15:59 | Discharge Summary ---
Date of Service February 26, 2023 Admission HPI Per Admitting Provider Patient is 62-year-old female with PMH HTN, HLD, DM II, chronic anemia, anxiety, depression, obesity, presented to ER with complaint of right flank pain x 1 day. Patient states yesterday started with aching pain along right flank that radiated to right groin. States this morning woke up out of sleep with increased pain to right flank. Also had nausea and vomiting. She reports history kidney stones in the past requiring lithotripsy and stent. Denies fever/chills, diaphoresis, hematemesis, diarrhea, constipation, BERGMAN, dizziness, syncope, CP, SOB, cough, sore throat, other abdominal pain, extremity weakness, extremity edema, rashes, dysuria, urinary frequency, urinary retention, hematuria. Admission Exam Per Admitting Provider General: no distress, obese Head: normocephalic, atraumatic Eyes: conjunctiva non-injected, anicteric ENT: normal inspection external ears, nose, mucous membranes moist Neck: supple, trachea midline Lungs: clear, no respiratory distress, no wheezing/rhonchi/rales CV: RRR, no murmur, no pretibial edema Abd: +protuberant, normal BS, soft, +slight tenderness to right flank, otherwise abdomen non-tender Ext: no cyanosis, no calf tenderness Neuro: A&O x 3, no focal deficits noted, normal affect Skin: warm, dry Principal Diagnosis Calculus of distal right ureter Hydronephrosis, right Renal colic Acute on chronic kidney disease III Discharge Exam Constitutional WD/WN, vitals as above + obese Respiratory normal respiratory effort, lungs clear to auscultation Cardiovascular Rate/Rhythm: regular rate and regular rhythm Vessels: normal peripheral pulses Extremities: no edema Gastrointestinal (Abdomen) normal bowel sounds, soft, nontender, no hepatosplenomegaly Skin no rashes, warm and dry Neurologic no focal motor deficits Psychiatric A+Ox3, euthymic affect Discharge Data Allergies Allergy/AdvReac Type Severity Reaction Status Date / Time potassium AdvReac Severe Cardiac Verified 02/24/23 16:33 issues fluoxetine AdvReac Intermediate Hallucinati Verified 02/24/23 16:33 ons lorazepam AdvReac Intermediate Hallucinati Verified 02/24/23 16:33 ons Consultations 02/24/23 17:34 Consult Urology Routine Ordered Studies Laboratory Results WBC 5.09 K/ul (4.8-10.8) 02/26/23 07:20 RBC 4.31 M/uL (4.20-5.40) 02/26/23 07:20 Hgb 9.9 g/dl (12.0-16.0) L 02/26/23 07:20 Hct 32.5 % (37.0-47.0) L 02/26/23 07:20 MCV 75.4 fL (80.0-100.0) L 02/26/23 07:20 MCH 23.0 pg (25.0-34.0) L 02/26/23 07:20 MCHC 30.5 g/dL (32.0-36.0) L 02/26/23 07:20 RDW Std Deviation 44.7 fL (36.4-46.3) 02/26/23 07:20 RDW Coeff of Rebecca 16.5 % (11.5-14.5) H 02/26/23 07:20 Plt Count 250 K/uL (130-400) 02/26/23 07:20 MPV 10.0 fL (9.4-12.4) 02/26/23 07:20 Immature Gran % (Auto) 0.1 % 02/24/23 11:52 Neut % (Auto) 81.0 % 02/24/23 11:52 Lymph % (Auto) 10.2 % 02/24/23 11:52 Wilcox % (Auto) 8.1 % 02/24/23 11:52 Eos % (Auto) 0.4 % 02/24/23 11:52 Baso % (Auto) 0.2 % 02/24/23 11:52 Neut # (Auto) 6.72 K/uL (1.40-6.50) H 02/24/23 11:52 Lymph # (Auto) 0.85 K/uL (1.2-3.4) L 02/24/23 11:52 Wilcox # (Auto) 0.67 K/uL (0.11-0.59) H 02/24/23 11:52 Eos # (Auto) 0.03 K/uL (0-0.50) 02/24/23 11:52 Baso # (Auto) 0.02 K/uL (0-0.2) 02/24/23 11:52 Immature Gran # (Auto) 0.01 K/uL (0.01-0.20) 02/24/23 11:52 Sodium 139 mmol/L (136-145) 02/26/23 07:20 Potassium 4.0 mmol/L (3.5-5.1) 02/26/23 07:20 Chloride 108 mmol/L (98-107) H 02/26/23 07:20 Carbon Dioxide 25 mmol/L (21-32) 02/26/23 07:20 Anion Gap 6 (3-11) 02/26/23 07:20 BUN 16 mg/dl (6-23) 02/26/23 07:20 Creatinine 1.56 mg/dl (0.6-1.2) H D 02/26/23 07:20 Est Cr Clr Drug Dosing 52.2 ml/min 02/26/23 07:20 Est GFR ( Amer) 41.1 ml/min 02/26/23 07:20 Est GFR (Non-Af Amer) 35.5 ml/min 02/26/23 07:20 BUN/Creatinine Ratio 10.3 (10-20) 02/26/23 07:20 Glucose 90 mg/dl (70-99(Fasting)) 02/26/23 07:20 POC Glucose 89 mg/dl (70-99) 02/26/23 08:05 Calcium 8.1 mg/dl (8.6-10.3) L 02/26/23 07:20 Total Bilirubin 0.7 mg/dl (0.2-1.0) 02/24/23 11:52 AST 14 U/L (13-39) 02/24/23 11:52 ALT 10 U/L (7-52) 02/24/23 11:52 Alkaline Phosphatase 107 U/L (34-104) H 02/24/23 11:52 Total Protein 6.8 gm/dl (6.0-8.3) 02/24/23 11:52 Albumin 3.7 gm/dl (3.4-5.0) 02/24/23 11:52 Globulin 3.1 gm/dl (2.5-4.0) 02/24/23 11:52 Albumin/Globulin Ratio 1.2 (0.9-2) 02/24/23 11:52 Lipase 18 U/L (11-82) 02/24/23 11:52 Urine Color Yellow 02/24/23 14:17 Urine Appearance Clear (Clear) 02/24/23 14:17 Urine pH 5.5 (4.5-7.5) 02/24/23 14:17 Ur Specific [place] 1.021 (1.000-1.030) 02/24/23 14:17 Urine Protein Negative (Negative) 02/24/23 14:17 Urine Glucose (UA) Negative (Negative) 02/24/23 14:17 Urine Ketones Trace (Negative) H 02/24/23 14:17 Urine Blood Negative (Negative) 02/24/23 14:17 Urine Nitrite Negative (Negative) 02/24/23 14:17 Urine Bilirubin Negative (Negative) 02/24/23 14:17 Urine Urobilinogen Negative (Negative) 02/24/23 14:17 Ur Leukocyte Esterase Negative (Negative) 02/24/23 14:17 SARS-CoV-2, RNA, NAAT NEGATIVE (NEGATIVE) 02/24/23 15:51 Impressions Abdomen/Pelvis CT 02/24/23 11:52 CT abd pelvis wo con CLINICAL HISTORY: R flank pain, h/o stones, gallstones, ovarian cyst TECHNIQUE: Helical axial images of the abdomen and pelvis were obtained. Automated dose lowering techniques and/or adjustment according to patient size were utilized for this exam. This exam was performed without intravenous contrast. CT DOSE: 1493.32 mGy.cm COMPARISON: None available at the time of this dictation. FINDINGS: Lower chest: Bibasilar atelectasis versus scarring is seen. Liver: Unremarkable. No focal lesions are seen. Gallbladder and biliary tree: Cholelithiasis is seen without evidence of cholecystitis. No intra- or extrahepatic biliary ductal dilation. Pancreas: Fatty replacement of the pancreas is seen. Spleen: Unremarkable. Adrenals: Unremarkable. Kidneys and ureters: Right hydronephrosis and hydroureter is seen. There is a distal ureter stone measuring approximately 5 mm. Additional nonobstructive stones are seen bilaterally. Bladder: Unremarkable. Reproductive organs: A left adnexal cystic lesion is seen. This is similar to appearance on prior exam. Bowel: Diverticulosis is seen without evidence of diverticulitis. Lymph nodes Retroperitoneal: Unremarkable. Pelvic: Unremarkable. Mesenteric: Unremarkable. Peritoneum: Normal. Vessels: Atherosclerotic calcifications are seen. Abdominal wall: Fat-containing infraumbilical hernia is noted. Bones: Unremarkable. IMPRESSION: Right distal ureteric stone with associated hydronephrosis and hydroureter. ACT 112: Negative or not required by law. Electronically signed by: Raman Flores M.D. 02/24/2023 12:44 PM Hospital Course (1) Calculus of distal right ureter: (2) Hydronephrosis, right: (3) Renal colic: Patient is 62-year-old female with PMH HTN, HLD, DM II, chronic anemia, anxiety, depression, obesity, presented to ER with complaint of right flank pain x 1 day with associated nausea and vomiting. Denies hematuria, dysuria, fever, chills CT abdomen pelvis: Right distal ureteric stone with associated hydronephrosis and hydroureter. UA unremarkable Remains afebrile Received empiric IV ceftriaxone Urology initially planned on cystoscopy and stent placement however patient spontaneously passed stone. Follow-up with urology in a few weeks with renal ultrasound. Stone sent for analysis, results pending at the time of discharge (4) ALLISON (acute kidney injury): (5) CKD (chronic kidney disease), stage III: ALLISON on CKD IIIb Likely multifactorial -prerenal due to vomiting and postobstructive uropathy due to renal calculi Creatinine baseline 1.3-1.4 Creatinine 1.9 --> 2.2 --> 1.5 Received IVF, renal functions improved Repeat BMP in 7 to 10 days (6) HTN (hypertension): BP controlled, Continue verapamil, metoprolol succinate (7) Prediabetes: A1c: 6.3 on 08/06/2022 Diet controlled (8) Hyperlipidemia: Continue atorvastatin (9) Chronic anemia: Hgb: 11.5--> 10.0. Baseline 10-11 Patient previously prescribed ferrous sulfate however reports stopped taking (10) KATHARINE (generalized anxiety disorder): (11) MDD (major depressive disorder): Continue escitalopram, Seroquel Total Time Total Time Spent Total Time Spent (In Minutes): 35 Discharge Plan Discharge Items Patient Disposition: Home - Self-Care Reason For Visit: Right Flank Pain Discharge Diagnosis: Kidney Stone Activity: Resume your previous activity Non-emergency contact: Primary Care Provider and Urologist Call non-emergency contact if: you have any medication questions, your symptoms worsen, your pain is not controlled and you have a fever Follow-up/Referrals: Tip Stark DO [Primary Care Provider] - 03/02/23 1:00 pm (Date & Time 03/02/2023 1:00 PM Provider Tip Stark DO Department Family [facility] ) Martin Cervantes MD [Physician] - (The urology office will call you with an appointment.) Diet: Carb Consistent or DM2 Addtl Attending Provider Instructions: You came to the hospital for evaluation of right flank pain. You were found to have a kidney stone. You spontaneously passed the stone and did not require surgical intervention. Stone analysis is currently pending at the time of discharge. Due to the kidney stone and dehydration, your renal function was abnormal. This was improving at the time of discharge. Your PCP will recheck your kidney func tion next week. Avoid NSAIDs (Motrin, Aleve, Advil, ibuprofen). You may take Tylenol for pain. The urology office will contact you for follow-up appointment. A follow-up appointment has been made for you with your PCP. It was a pleasure taking care of you. If you need to reach a member of the [facility] hospitalist team at [facility], please call [phone]. CHYNA Melendez Pending Studies at Discharge: Yes Studies:: Kidney stone analysis Stand-Alone Forms: My [facility], Smoking Cessation Medications and DC Order Prescriptions: Continued atorvastatin 10 mg tablet 10 mg PO HS metoprolol succinate 50 mg tablet extended release 24 hr 50 mg PO HS quetiapine 200 mg tablet 200 mg PO HS verapamil 120 mg capsule,ext rel. pellets 24 hr 120 mg PO HS escitalopram oxalate 20 mg tablet 20 mg PO HS melatonin 10 mg Tablet 10 mg PO HS PRN (Reason: Sleep) Discharge Orders: Discharge Order (Routine); Ordered 02/26/23 Ordered By: Niya Grant/Other Patient Handouts: Preventing Deep Vein Thrombosis Admission Data Admit Date/Time: 02/24/23 16:12 Attending Provider: Jeanette Escobar I. Admit Provider: Jared Grier Primary Care Provider: Tip Stark Other Providers: Lee Reynoso ; Cherrie,Jared B Other Interventions: Discharge Summary Assessment (RN) Last Done: 02/26/23 11:19 Supervising Physician Co-Signing Physician Notes Agree with findings and plan per Niya CLEMENTE
== END 2023-02-26 11:54 | disposition home or self-care (01) | DRG 694 ==
LOC: ED 11:14 → 3N 16:12 → SUATTDRO 16:12 → 3N 16:58

== ENCOUNTER 2023-03-05 17:11 | Inpatient (IN) ==
[2023-03-05] MEDS ORDERED: ONDANSETRON INJ 2 MG/ML 2 ML VIAL IV STA (17:31)
[2023-03-05] MEDS ORDERED: KETOROLAC TROMETHAMINE 15 MG/ML VIAL IV ONE (17:32)
--- NOTE | 2023-03-05 18:06 | XRay Report ---
XR chest 2V PA/lateral CLINICAL HISTORY: RUQ abdominal pain into chest and shoulder COMPARISON STUDY: Chest radiograph August 05, 2022. FINDINGS: Lung volumes are normal. There is no consolidation to suggest pneumonia. Linear left lower lung density represents atelectasis or scarring. There is no pneumothorax or pleural effusion. Cardia c size is stable. Mediastinal contours are normal. There is no evidence for pulmonary edema. IMPRESSION: No acute cardiopulmonary findings. No significant change in appearance of the chest. ACT 112: Negative or not required by law. Electronically signed by: Enrrique Howe M.D. 03/05/2023 6:04 PM
--- NOTE | 2023-03-05 18:16 | XRay Report ---
KUB CLINICAL HISTORY: RUQ abdominal pain into chest and shoulder COMPARISON STUDY: CT of the abdomen and pelvis February 24, 2023. FINDINGS: Multiple right renal calculi measure up to 1.1 cm. Left renal calculi are not well visualiz ed on this exam. The distal right ureteral calculus shown on CT of February 24, 2023 is difficult to asses s for in this exam given numerous phleboliths. There is no evidence for a bowel obstruction. Postoper ative findings within the abdomen are noted. Amount of stool is within normal limits. IMPRESSION: 1. Right-sided nephrolithiasis. Left renal calculi shown on prior CT obscured on this exam. 2. Distal right ureteral calculus on prior CT difficult to assess for given numerous phleboliths. 3. No bowel obstruction. ACT 112: Negative or not required by law. Electronically signed by: Enrrique Howe M.D. 03/05/2023 6:14 PM
[2023-03-05 18:23] LABS: Basophils # (auto) 0.05 K/uL (0-0.2); Basophils % (auto) 0.7 %; Eosinophils # (auto) 0.16 K/uL (0-0.50); Eosinophils % (auto) 2.3 %; Hematocrit (blood only) 39.2 % (37.0-47.0); Hemoglobin 11.8 g/dl (12.0-16.0); Immature Granulocytes # (auto) 0.02 K/uL (0.01-0.20); Immature Granulocytes % (auto) 0.3 %; Lymphocytes # (auto) 1.54 K/uL (1.2-3.4); Lymphocytes % (auto) 21.7 %; Mean Corpuscular Hgb Conc 30.1 g/dL (32.0-36.0); Mean Corpuscular Volume 76.3 fL (80.0-100.0); Mean Platelet Volume 9.4 fL (9.4-12.4); Neutrophils # (auto) 4.83 K/uL (1.40-6.50); Platelet Count 384 K/uL (130-400); RDW Coefficient of Variation 16.3 % (11.5-14.5); RDW Standard Deviation 44.2 fL (36.4-46.3); Red Blood Count 5.14 M/uL (4.20-5.40)
[2023-03-05 18:42] LABS: Albumin Globulin Ratio 1.4 (0.9-2); Albumin Level 4.1 gm/dl (3.4-5.0); BUN Creatinine Ratio 11.2 (10-20); Bilirubin,Total 0.4 mg/dl (0.2-1.0); Calcium 8.4 mg/dl (8.6-10.3); Creatinine Clr Calc Pharmacy 65.3 ml/min; Est GFR (African American) 53.8 ml/min; Est GFR (Non-African American) 46.4 ml/min; Total Protein 7.1 gm/dl (6.0-8.3)
[2023-03-05 18:49] LABS: Pregnancy Test, Serum Positive (Negative)
--- NOTE | 2023-03-05 20:15 | Emergency Department Note ---
History of Present Illness General Chief Complaint: Abdominal Pain Stated Complaint: PAIN RADIATING FROM R SIDE UP TO NECK,SOB Time Seen by Provider: 03/05/23 19:35 History of Present Illness Provider Complaint: abdominal pain and flank pain Onset (ago): hour(s) (7.5) Pain Consistency: intermittent Location: RUQ Migration to: R flank Severity: severe Maximum Pain Intensity: 10 Current Pain Intensity: 9 Quality: + stabbing and + sharp Relieved By: + nothing Exacerbated By: + nothing Context: no foreign travel, no possible food poisoning, no sick contacts, no recent antibiotic use, no recent surgery/procedure or no recent injury Associated Symptoms: + nausea; no vomiting, no chills, no constipation, no dys uria, no hematemesis, no hematochezia, no melena and no hematuria Home Medications Medication Instructions Recorded Confirmed Type atorvastatin 10 mg tablet 10 mg PO HS 05/09/19 03/05/23 History escitalopram oxalate 20 mg tablet 20 mg PO HS 05/09/19 03/05/23 History metoprolol succinate 50 mg 50 mg PO HS 05/09/19 03/05/23 History tablet,extended release 24 hr quetiapine 200 mg tablet 200 mg PO HS 05/09/19 03/05/23 History verapamil 120 mg 24 hr 120 mg PO HS 05/09/19 03/05/23 History capsule,extended release melatonin 10 mg tablet 10 mg PO HS PRN Sleep 08/05/22 03/05/23 History Allergies Allergy/AdvReac Type Severity Reaction Status Date / Time potassium AdvReac Severe Cardiac Verified 02/24/23 16:33 issues fluoxetine AdvReac Intermediate Hallucinati Verified 02/24/23 16:33 ons lorazepam AdvReac Intermediate Hallucinati Verified 02/24/23 16:33 ons Past Med/Surg History Medical History Chronic anemia CKD (chronic kidney disease), stage III Diabetes Per records Last Hgb A1C 6.4 per 10/30/20 PCP note. Diet controlled KATHARINE (generalized anxiety disorder) HTN (hypertension) Hx of supraventricular tachycardia Hyperlipidemia Kidney stones MDD (major depressive disorder) Migraine Morbid obesity Prediabetes PVC (premature ventricular contraction) Stroke Around 1989- residual mild weakness on right side. 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 [employer] Required: No Beliefs That Will Affect Care: None Current Living Situation: Alone Current Living Situation Comment: Lives home with family Feels Safe at Home: Yes Assistive Devices: None Physical Exam Vital Signs: Vital Signs - 24 hr 03/05/23 17:25 03/05/23 20:04 03/05/23 17:11 Temperature 36.7 C Temperature Source Oral Pulse Rate 68 Pulse Rate from Sp O2 Sensor Pulse Rhythm Regular Regular Pulse Strength Normal Respiratory Rate 22 16 Respiratory Effort / Characteristics Non-Labored Sponta neous Non-Labored Respiratory Depth Normal Normal Respiratory Patter n Regular Blood Pressure 175/92 H Blood Pressure Katina n 119 Blood Pressure Pos ition Sitting Pulse Oximetry 95 96 95 Oxygen Delivery Me thod Room Air Room Air Room Air Sepsis Recent Feve r Within 48 Hours No Sepsis New/Unexpla ined Change in Men alvaro Status No Sepsis Action Take n by Nursing No Action Required 03/05/23 20:07 03/05/23 20:10 03/05/23 20:20 Temperature Temperature Source Pulse Rate 63 64 67 Pulse Rate from Sp O2 Sensor 64 63 67 Pulse Rhythm Pulse Strength Respiratory Rate 9 L 19 16 Respiratory Effort / Characteristics Respiratory Depth Respiratory Patter n Blood Pressure Blood Pressure Kat[place] n Blood Pressure Pos ition Pulse Oximetry 96 96 95 Oxygen Delivery Me thod Sepsis Recent Feve r Within 48 Hours Sepsis New/Unexpla ined Change in Men alvaro Status Sepsis Action Take n by Nursing 03/05/23 20:30 03/05/23 20:40 03/05/23 20:50 Temperature Temperature Source Pulse Rate 68 67 69 Pulse Rate from Sp O2 Sensor 68 68 69 Pulse Rhythm Pulse Strength Respiratory Rate 20 18 20 Respiratory Effort / Characteristics Respiratory Depth Respiratory Patter n Blood Pressure Blood Pressure Katina n Blood Pressure Pos ition Pulse Oximetry 94 94 95 Oxygen Delivery Me thod Sepsis Recent Feve r Within 48 Hours Sepsis New/Unexpla ined Change in Men alvaro Status Sepsis Action Take n by Nursing 03/05/23 21:00 03/05/23 20:06 03/05/23 21:09 Temperature Temperature Source Pulse Rate 68 63 68 Pulse Rate from Sp O2 Sensor 68 69 Pulse Rhythm Pulse Strength Respiratory Rate 20 15 Respiratory Effort / Characteristics Respiratory Depth Respiratory Patter n Blood Pressure Blood Pressure Katina n Blood Pressure Pos ition Pulse Oximetry 95 95 Oxygen Delivery Me thod Sepsis Recent Feve r Within 48 Hours Sepsis New/Unexpla ined Change in Men alvaro Status Sepsis Action Take n by Nursing 03/05/23 21:09 03/05/23 21:10 03/05/23 21:20 Temperature Temperature Source Pulse Rate 70 66 Pulse Rate from Sp O2 Sensor 70 66 Pulse Rhythm Pulse Strength Respiratory Rate 21 20 Respiratory Effort / Characteristics Respiratory Depth Respiratory Patter n Blood Pressure 166/91 H Blood Pressure Kat[place] n 145 Blood Pressure Pos ition Pulse Oximetry 94 96 Oxygen Delivery Me thod Sepsis Recent Feve r Within 48 Hours Sepsis New/Unexpla ined Change in Men alvaro Status Sepsis Action Take n by Nursing 03/05/23 22:43 Temperature Temperature Source Pulse Rate 69 Pulse Rate from Sp O2 Sensor 68 Pulse Rhythm Pulse Strength Respiratory Rate 20 Respiratory Effort / Characteristics Respiratory Depth Respiratory Patter n Blood Pressure 171/97 H Blood Pressure Kat[place] n 121 Blood Pressure Pos ition Pulse Oximetry 94 Oxygen Delivery Me thod Sepsis Recent Feve r Within 48 Hours Sepsis New/Unexpla ined Change in Men alvaro Status Sepsis Action Take n by Nursing Physical Exam: Physical Exam GENERAL: She is oriented to person, place, and time. She appears well-developed and well-nourished. She does not appear distressed. HENT: Exam performed. -Head: Normocephalic and atraumatic. -Right Ear: External ear normal. No mastoid erythema -Left Ear: External ear normal. No mastoid erythema -Mouth/Throat: The oropharynx is clear and moist. No trismus in the jaw. No dental abscesses or uvula swelling. No oropharyngeal exudate or tonsillar absces ses. EYES: Conjunctivae and EOM are normal.Right eye exhibits no discharge. Left eye exhibits no discharge. No scleral icterus. NECK: Normal range of motion. Neck supple. No JVD present. No tracheal deviation and normal range of motion present. CV: Normal rate, regular rhythm, normal heart sounds and intact distal pulses. There is no peripheral edema. Palpable radial pulses bue. PULM/CHEST: Effort normal and breath sounds normal. No respiratory distress. No stridor. She has no wheezes. She has no rales. -Chest Wall: She exhibits no tenderness. ABD: The abdomen is soft. She has no distension. No mass is present. There is no tenderness. There is no rebound, no guarding, no Schneider's sign and no tenderness at McBurney's point. Rovsig negative. Right CVA tenderness. MUSC/SKEL: Normal range of motion. There is no peripheral edema, tenderness or deformity. SKIN: Skin is warm and dry. She is not diaphoretic. PSYCH: She has a normal mood and affect. Behavior is normal. Judgment and thoug ht content normal. Course Course 1934: The patient was evaluated in room C1. A complete history and physical exam was performed Cardiac monitoring: An order was placed for continuous cardiac monitoring. The monitor shows a rate of 70 with sinus rhythm interpreted by me Patient was seen during a time of extreme volume and extreme acuity in the emergency department. Nursing triage protocols were initiated and labs were drawn and imaging conducted by protocol in the triage area. The patient had a serum hCG conducted in triage. This is positive. I called the lab to confirm that this was not an error and they said that they read it twice and is not an error. Will order serum hCG quant. 2114: Vital signs stable. Patient states her flank pain is better status post Toradol however it started to come back. Patient's hCG was 16. Ultrasound of the right upper quadrant shows cholelithiasis without cholecystitis. X-ray shows right-sided nephrolithiasis and the distal right ureteral calculus that was seen on prior CT was difficult to assess for. External medical records were reviewed. The patient was recently admitted to this facility from February 24 to February 26 for a right-sided kidney stone. The patient was planned to have a stent placed but then spontaneously passed her stone. She was post follow-up with urology for an ultrasound. There is a CT abdomen pelvis without contrast that was conducted on February 24, 2023 which did show a right distal ureteral stone with hydronephrosis and hydroureter. There is an associated remark about a left adnexal cystic lesion which appeared similar to a prior CT which was done in July 2022. The patient is still having flank pain, we will plan on admitting the patient for her kidney stones as is thought that her flank pain is most likely secondary to kidney stones again. Discussed case with RATING SPECIALIST on-call Dr. Vides as the patient states that she has not seen RATING SPECIALIST in multiple years but if she had to see 1 would prefer to see a [facility] doctor. We discussed the results of the hCG as well as any potential imaging for this cystic lesion on her ovary. Discussed with Dr. Vides for an MRI or ultrasound to be more appropriate and he suggested to conduct a pelvic ultrasound. Patient will be admitted regardless for her flank pain the flank pain is not tho ught to be related to the ovarian lesion, the patient will be admitted to the [facility] Hospitalist team Dr. Gross was notified about the patient as well as the pelvic ultrasound that has been ordered. Administered Medications Discontinued Medications Ketorolac Tromethamine (Ketorolac Tromethamine 15 Mg/Ml Vial) 15 mg IV NOW ONE Stop: 03/05/23 17:33 Last Admin: 03/05/23 18:05 Dose: 15 mg Documented By: LEOBARDO Ketorolac Tromethamine (Ketorolac Tromethamine 15 Mg/Ml Vial) 15 mg IV NOW STA Stop: 03/05/23 21:11 Last Admin: 03/05/23 21:20 Dose: 15 mg Documented By: ZAHRA Metoprolol Succinate (Metoprolol Succ 50mg Ext Rel Tab) 50 mg PO NOW STA Stop: 03/05/23 21:30 Last Admin: 03/05/23 22:45 Dose: 50 mg Documented By: ZAHRA Ondansetron HCl (Ondansetron Inj 2 Mg/Ml 2 Ml Vial) 4 mg IV NOW STA Stop: 03/05/23 17:32 Last Admin: 03/05/23 18:05 Dose: 4 mg Documented By: LEOBARDO Medical Decision Making Laboratory Data Attestation: I reviewed the patient's lab results. 03/05/23 18:07 03/05/23 18:07 Lab Results 03/05/23 03/05/23 03/05/23 Range/Units 18:07 18:07 18:07 WBC 7.10 (4.8-10.8) K/ul RBC 5.14 (4.20-5.40) M/uL Hgb 11.8 L (12.0-16.0) g/dl Hct 39.2 (37.0-47.0) % MCV 76.3 L (80.0-100.0) fL MCH 23.0 L (25.0-34.0) pg MCHC 30.1 L (32.0-36.0) g/dL RDW Std Deviation 44.2 (36.4-46.3) fL RDW Coeff of Rebecca 16.3 H (11.5-14.5) % Plt Count 384 (130-400) K/uL MPV 9.4 (9.4-12.4) fL Immature Gran % (Auto) 0.3 % Neut % (Auto) 68.0 % Lymph % (Auto) 21.7 % [place] % (Auto) 7.0 % Eos % (Auto) 2.3 % Baso % (Auto) 0.7 % Neut # (Auto) 4.83 (1.40-6.50) K/uL Lymph # (Auto) 1.54 (1.2-3.4) K/uL [place] # (Auto) 0.50 (0.11-0.59) K/uL Eos # (Auto) 0.16 (0-0.50) K/uL Baso # (Auto) 0.05 (0-0.2) K/uL Immature Gran # (Auto) 0.02 (0.01-0.20) K/uL Sodium 141 (136-145) mmol/L Potassium 4.0 (3.5-5.1) mmol/L Chloride 108 H (98-107) mmol/L Carbon Dioxide 25 (21-32) mmol/L Anion Gap 8 (3-11) BUN 14 (6-23) mg/dl Creatinine 1.25 H (0.6-1.2) mg/dl Est Cr Clr Drug Dosing 65.3 ml/min Est GFR ( Amer) 53.8 ml/min Est GFR (Non-Af Amer) 46.4 ml/min BUN/Creatinine Ratio 11.2 (10-20) Glucose 104 H (70-99(Fasting)) mg/dl Calcium 8.4 L (8.6-10.3) mg/dl Magnesium 2.0 (1.7-2.4) mg/dl Total Bilirubin 0.4 (0.2-1.0) mg/dl AST 17 (13-39) U/L ALT 11 (7-52) U/L Alkaline Phosphatase 118 H (34-104) U/L Total Protein 7.1 (6.0-8.3) gm/dl Albumin 4.1 (3.4-5.0) gm/dl Globulin 3.0 (2.5-4.0) gm/dl Albumin/Globulin Ratio 1.4 (0.9-2) Lipase 29 (11-82) U/L HCG, Qual Positive (Negative) HCG, Quant mIU/ml Urine Color Urine Appearance (Clear) Urine pH (4.5-7.5) Ur Specific [place] (1.000-1.030) Urine Protein (Negative) Urine Glucose (UA) (Negative) Urine Ketones (Negative) Urine Blood (Negative) Urine Nitrite (Negative) Urine Bilirubin (Negative) Urine Urobilinogen (Negative) Ur Leukocyte Esterase (Negative) Urine WBC (Auto) (0-5) /hpf Urine RBC (Auto) (0-4) /hpf U Hyaline Cast (Auto) (0-5) /lpf U Epithel Cells (Auto) (0-5) /lpf Urine Bacteria (Auto) (Negative) SARS-CoV-2, RNA, NAAT (NEGATIVE) 03/05/23 03/05/23 03/05/23 Range/Units 19:55 19:57 21:18 WBC (4.8-10.8) K/ul RBC (4.20-5.40) M/uL Hgb (12.0-16.0) g/dl Hct (37.0-47.0) % MCV (80.0-100.0) fL MCH (25.0-34.0) pg MCHC (32.0-36.0) g/dL RDW Std Deviation (36.4-46.3) fL RDW Coeff of Rebecca (11.5-14.5) % Plt Count (130-400) K/uL MPV (9.4-12.4) fL Immature Gran % (Auto) % Neut % (Auto) % Lymph % (Auto) % [place] % (Auto) % Eos % (Auto) % Baso % (Auto) % Neut # (Auto) (1.40-6.50) K/uL Lymph # (Auto) (1.2-3.4) K/uL [place] # (Auto) (0.11-0.59) K/uL Eos # (Auto) (0-0.50) K/uL Baso # (Auto) (0-0.2) K/uL Immature Gran # (Auto) (0.01-0.20) K/uL Sodium (136-145) mmol/L Potassium (3.5-5.1) mmol/L Chloride (98-107) mmol/L Carbon Dioxide (21-32) mmol/L Anion Gap (3-11) BUN (6-23) mg/dl Creatinine (0.6-1.2) mg/dl Est Cr Clr Drug Dosing ml/min Est GFR ( Amer) ml/min Est GFR (Non-Af Amer) ml/min BUN/Creatinine Ratio (10-20) Glucose (70-99(Fasting)) mg/dl Calcium (8.6-10.3) mg/dl Magnesium (1.7-2.4) mg/dl Total Bilirubin (0.2-1.0) mg/dl AST (13-39) U/L ALT (7-52) U/L Alkaline Phosphatase (34-104) U/L Total Protein (6.0-8.3) gm/dl Albumin (3.4-5.0) gm/dl Globulin (2.5-4.0) gm/dl Albumin/Globulin Ratio (0.9-2) Lipase (11-82) U/L HCG, Qual (Negative) HCG, Quant 16 mIU/ml Urine Color Dark Yellow Urine Appearance Cloudy A (Clear) Urine pH 5.5 (4.5-7.5) Ur Specific [place] 1.022 (1.000-1.030) Urine Protein Trace H (Negative) Urine Glucose (UA) Negative (Negative) Urine Ketones Trace H (Negative) Urine Blood Trace H (Negative) Urine Nitrite Negative (Negative) Urine Bilirubin Negative (Negative) Urine Urobilinogen Negative (Negative) Ur Leukocyte Esterase Trace H (Negative) Urine WBC (Auto) 5-10 H (0-5) /hpf Urine RBC (Auto) 10-30 H (0-4) /hpf U Hyaline Cast (Auto) 10-30 H (0-5) /lpf U Epithel Cells (Auto) >30 H (0-5) /lpf Urine Bacteria (Auto) Negative (Negative) SARS-CoV-2, RNA, NAAT NEGATIVE (NEGATIVE) Imaging Data Radiologist's Impression: Gallbladder Ultrasound 03/05/23 17:31 Exam(s): US GALLBLADDER EXAM: US Abdomen Limited, Gallbladder CLINICAL HISTORY: Reason for exam: RUQ abdominal pain. TECHNIQUE: Real-time ultrasound of the right upper quadrant with image documentation. COMPARISON: No relevant prior studies available. FINDINGS: Gallbladder: Cholelithiasis. Negative Schneider sign. Common bile duct: 3 mm common bile duct. No stones. No dilation. Pancreas: Poor visualization of the pancreas. IMPRESSION: Cholelithiasis. No ultrasound evidence of acute cholecystitis. Electronically signed by: Wisam Urbina MD 03/05/23 20:50 PM Chest X-Ray 03/05/23 17:32 XR chest 2V PA/lateral CLINICAL HISTORY: RUQ abdominal pain into chest and shoulder COMPARISON STUDY: Chest radiograph August 05, 2022. FINDINGS: Lung volumes are normal. There is no consolidation to suggest pneumonia. Linear left lower lung density represents atelectasis or scarring. There is no pneumothorax or pleural effusion. Cardiac size is stable. Mediastinal contours are normal. There is no evidence for pulmonary edema. IMPRESSION: No acute cardiopulmonary findings. No significant change in appearance of the chest. ACT 112: Negative or not required by law. Electronically signed by: Enrrique Howe M.D. 03/05/2023 6:04 PM KUB X-Ray 03/05/23 17:32 KUB CLINICAL HISTORY: RUQ abdominal pain into chest and shoulder COMPARISON STUDY: CT of the abdomen and pelvis February 24, 2023. FINDINGS: Multiple right renal calculi measure up to 1.1 cm. Left renal calculi are not well visualized on this exam. The distal right ureteral calculus shown on CT of February 24, 2023 is difficult to assess for in this exam given numerous phleboliths. There is no evidence for a bowel obstruction. Postoperative f indings within the abdomen are noted. Amount of stool is within normal limits. IMPRESSION: 1. Right-sided nephrolithiasis. Left renal calculi shown on prior CT obscured on this exam. 2. Distal right ureteral calculus on prior CT difficult to assess for given numerous phleboliths. 3. No bowel obstruction. ACT 112: Negative or not required by law. Electronically signed by: Enrrique Howe M.D. 03/05/2023 6:14 PM MDM Narrative 193: The patient was evaluated in room C1. A complete history and physical exam was performed Cardiac monitoring: An order was placed for continuous cardiac monitoring. The monitor shows a rate of 70 with sinus rhythm interpreted by me Patient was seen during a time of extreme volume and extreme acuity in the emergency department. Nursing triage protocols were initiated and labs were drawn and imaging conducted by protocol in the triage area. The patient had a serum hCG conducted in triage. This is positive. I called the lab to confirm that this was not an error and they said that they read it twice and is not an error. Will order serum hCG quant. 2114: Vital signs stable. Patient states her flank pain is better status post Toradol however it started to come back. Patient's hCG was 16. Ultrasound of the right upper quadrant shows cholelithiasis without cholecystitis. X-ray shows right-sided nephrolithiasis and the distal right ureteral calculus that was seen on prior CT was difficult to assess for. External medical records were reviewed. The patient was recently admitted to this facility from February 24 to February 26 for a right-sided kidney stone. The patient was planned to have a stent placed but then spontaneously passed her stone. She was post follow-up with urology for an ultrasound. There is a CT abdomen pelvis without contrast that was conducted on February 24, 2023 which did show a right distal ureteral stone with hydronephrosis and hydroureter. There is an associated remark about a left adnexal cystic lesion which appeared similar to a prior CT which was done in July 2022. The patient is still having flank pain, we will plan on admitting the patient for her kidney stones as is thought that her flank pain is most likely secondary to kidney stones again. Discussed case with RATING SPECIALIST on-call Dr. Vides as the patient states that she has not seen RATING SPECIALIST in multiple years but if she had to see 1 would prefer to see a [facility] doctor. We discussed the results of the hCG as well as any potential imaging for this cystic lesion on her ovary. Discussed with Dr. Vides for an MRI or ultrasound to be more appropriate and he suggested to conduct a pelvic ultrasound. Patient will be admitted regardless for her flank pain the flank pain is not thought to be related to the ovarian lesion, the patient will be admitted to the [facility] hospitalist team Dr. Gross was notified about the patient as well as the pelvic ultrasound that has been ordered. Impression & Plan Acute flank pain, Kidney stone, Elevated serum hCG Discharge Plan Visit Data Chief Complaint: Abdominal Pain Stated Complaint: PAIN RADIATING FROM R SIDE UP TO NECK,SOB ED Provider: Jared Gardiner Discharge Problem: Acute flank pain, Kidney stone, Elevated serum hCG Patient Disposition: Being Evaluated by Hospitalist Forms Stand Alone Forms: [facility] Prescriptions Prescriptions: No Action atorvastatin 10 mg tablet 10 mg PO HS metoprolol succinate 50 mg tablet extended release 24 hr 50 mg PO HS quetiapine 200 mg tablet 200 mg PO HS verapamil 120 mg capsule,ext rel. pellets 24 hr 120 mg PO HS escitalopram oxalate 20 mg tablet 20 mg PO HS melatonin 10 mg Tablet 10 mg PO HS PRN (Reason: Sleep) Referrals Referrals: Tip Stark DO [Primary Care Provider] -
[2023-03-05 20:18] LABS: Appearance Urine Cloudy (Clear); Bacteria Urine Automated Negative (Negative); Bilirubin Urine Negative (Negative); Blood Urine Trace (Negative); Color Urine Dark Yellow; Epithelial Cell Urine Auto >30 /lpf (0-5); Glucose Urine UA Negative (Negative); Ketones Urine Trace (Negative); Leukocyte Esterase Urine Trace (Negative); Nitrite Urine Negative (Negative); Protein Urine Trace (Negative); Specific Gravity Urine 1.022 (1.000-1.030); Urobilinogen Urine Negative (Negative); pH Urine 5.5 (4.5-7.5)
--- NOTE | 2023-03-05 20:51 | Ultrasound Report ---
Exam(s): US GALLBLADDER EXAM: US Abdomen Limited, Gallbladder CLINICAL HISTORY: Reason for exam: RUQ abdominal pain. TECHNIQUE: Real-time ultrasound of the right upper quadrant with image documentation. COMPARISON: No relevant prior studies available. FINDINGS: Gallbladder: Cholelithiasis. Negative Schneider sign. Common bile duct: 3 mm common bile duct. No stones. No dilation. Pancreas: Poor visualization of the pancreas. IMPRESSION: Cholelithiasis. No ultrasound evidence of acute cholecystitis. Electronically signed by: Wisam Urbina MD 03/05/23 20:50 PM
[2023-03-05] MEDS ORDERED: KETOROLAC TROMETHAMINE 15 MG/ML VIAL IV STA (21:10)
[2023-03-05] MEDS ORDERED: METOPROLOL SUCC 50MG EXT REL TAB PO STA (21:29)
--- NOTE | 2023-03-05 22:39 | History & Physical Report ---
Date of Service March 05, 2023 Assessment & Plan (1) Biliary colic: Plan: Hypertensive urgency secondary to above Left adnexal cyst, first noted as an incidental finding on CT in 2019, last outpatient [facility] follow-up was around that time chronic diastolic heart failure (EF 60 to 65%, TTE 2021), patient euvolemic to dry hx PSVT history traumatic hemorrhagic CVA hyperlipidemia on statin Rx DM2 diet-controlled, well-controlled as of recent hemoglobin A1c of 6.4 this month CRI, creatinine at baseline chronic anemia, hemoglobin at baseline hyperparathyroidism as per records, consistent with secondary process as per outpatient nephrology note chronic migraine headaches OBS Medical telemetry given elevated BP Analgesia Facilitate nighttime BP meds General Surgery consult Re: Biliary colic N.p.o. until patient seen by general surgery Outpatient [facility] follow-up for adnexal cyst ISS BG goal 1 10-1 40 DVT prophylaxis. SCDs Re: Possible procedure Recommend pharmacologic anticoagulation with Heparin 5000 mg subcutaneous every 8 hours if okay with General Surgery Full code Text document was generated using [employer] voice recognition software. It may contain grammatical or spelling errors. Kindly contact undersigned for clarification of any documentation item in question. History of Present Illness Chief Complaint: Right-sided abdominal pain Primary Care Provider: Tip Stark DO History obtained from patient and records. Medical history significant for chronic diastolic heart failure (EF 60 to 65%, TTE 2021), PSVT, history traumatic hemorrhagic CVA, hypertension, hyperlipidemia, DM2 diet-controlled, CRI (baseline creatinine 1.3 ), chronic ane brianna (baseline hemoglobin 11 ), left ovarian cyst, history gastric bypass, hyperparathyroidism as per records, migraine, urolithiasis, cholelithiasis, anxiety/mood disorder. Last confinement February 24 to 2022 for renal colic right secondary to ureteric stone with hydronephrosis. Patient spontaneously passed stone. This morning, patient had achy right flank/right upper abdominal discomfort going to her right chest and shoulder causing shortness of breath. No fever, no chills, no hematuria. For intense stent kidney stone pain in the past. Some nausea, no emesis. No prior episodes as per patient. Usual headache symptoms. Patient consulted ER for evaluation. SBP 170s upon arrival at the ER. 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 Allergies Allergy/AdvReac Type Severity Reaction Status Date / Time potassium AdvReac Severe Cardiac Verified 02/24/23 16:33 issues fluoxetine AdvReac Intermediate Hallucinati Verified 02/24/23 16:33 ons lorazepam AdvReac Intermediate Hallucinati Verified 02/24/23 16:33 ons Home Medications Medication Instructions Recorded Confirmed Type atorvastatin 10 mg tablet 10 mg PO HS 05/09/19 03/05/23 History escitalopram oxalate 20 mg tablet 20 mg PO HS 05/09/19 03/05/23 History metoprolol succinate 50 mg 50 mg PO HS 05/09/19 03/05/23 History tablet,extended release 24 hr quetiapine 200 mg tablet 200 mg PO HS 05/09/19 03/05/23 History verapamil 120 mg 24 hr 120 mg PO HS 05/09/19 03/05/23 History capsule,extended release melatonin 10 mg tablet 10 mg PO HS PRN Sleep 08/05/22 03/05/23 History Past Med/Surg History Medical History (Updated 03/06/23 @ 11:25 by Clifton Greenberg MD) Cholelithiasis Chronic anemia CKD (chronic kidney disease), stage III Diabetes Per records Last Hgb A1C 6.4 per 10/30/20 PCP note. Diet controlled KATHARINE (generalized anxiety disorder) HTN (hypertension) Hx of supraventricular tachycardia Hyperlipidemia Kidney stones MDD (major depressive disorder) Migraine Morbid obesity Prediabetes PVC (premature ventricular contraction) Stroke Around 1989- residual mild weakness on right side. Surgical History History of arthroscopy of left shoulder History of x 2 Hx of arthroscopy of right knee Hx of dilation and curettage x 2 Hx of gastric bypass Family History Other Cancer Diabetes Dyslipidemia Heart disease Hypertension Social History Smoking Status: Never smoker Second Hand Exposure: No; Do You Dip or Chew Tobacco: No; Hx Alcohol Use: No Hx Substance Use: No Preferred Language: Central African Communication Ability: Effective Heel Cementer Machine Required: No Beliefs That Will Affect Care: None Current Living Situation: Alone Current Living Situation Comment: Lives home with family Other Information That Helps Us Care for You: No Feels Safe at Home: Yes Assistive Devices: None Review of Systems Review of Systems: As per HPI, all other systems reviewed and negative Physical Exam Physical Exam: GENERAL: Slightly uncomfortable, morbidly obese, pleasant, no respiratory distress SKIN: Pallor, warm HEENT: Pale palpebral conjunctivae, no ptosis, dry buccal mucosa NECK : Supple, short neck, no tenderness CHEST : CTA, no tenderness HEART : RRR, no obvious murmurs ABDOMEN: Some distention, right upper quadrant tenderness EXTREMITIES : Minimal LE swelling, no LE tenderness, no other conspicuous deformities noted NEUROLOGIC : Coherent, no facial asymmetry, no other gross focality Results & Data Results & Data Vital Signs (Past 12 Hours) Vital Signs Temp Pulse Resp BP Pulse Ox O2 Del Method 03/05/23 20:06 63 03/05/23 21:00 68 20 95 03/05/23 20:50 69 20 95 03/05/23 20:40 67 18 94 03/05/23 20:30 68 20 94 03/05/23 20:20 67 16 95 03/05/23 20:10 64 19 96 03/05/23 20:07 63 9 L 96 03/05/23 17:11 16 95 Room Air 03/05/23 20:04 96 Room Air 03/05/23 17:25 36.7 C 68 22 175/92 H 95 Room Air Laboratory Results Laboratory Results WBC 7.10 K/ul (4.8-10.8) 03/05/23 18:07 RBC 5.14 M/uL (4.20-5.40) 03/05/23 18:07 Hgb 11.8 g/dl (12.0-16.0) L 03/05/23 18:07 Hct 39.2 % (37.0-47.0) 03/05/23 18:07 MCV 76.3 fL (80.0-100.0) L 03/05/23 18:07 MCH 23.0 pg (25.0-34.0) L 03/05/23 18:07 MCHC 30.1 g/dL (32.0-36.0) L 03/05/23 18:07 RDW Std Deviation 44.2 fL (36.4-46.3) 03/05/23 18:07 RDW Coeff of Rebecca 16.3 % (11.5-14.5) H 03/05/23 18:07 Plt Count 384 K/uL (130-400) 03/05/23 18:07 MPV 9.4 fL (9.4-12.4) 03/05/23 18:07 Immature Gran % (Auto) 0.3 % 03/05/23 18:07 Neut % (Auto) 68.0 % 03/05/23 18:07 Lymph % (Auto) 21.7 % 03/05/23 18:07 [place] % (Auto) 7.0 % 03/05/23 18:07 Eos % (Auto) 2.3 % 03/05/23 18:07 Baso % (Auto) 0.7 % 03/05/23 18:07 Neut # (Auto) 4.83 K/uL (1.40-6.50) 03/05/23 18:07 Lymph # (Auto) 1.54 K/uL (1.2-3.4) 03/05/23 18:07 [place] # (Auto) 0.50 K/uL (0.11-0.59) 03/05/23 18:07 Eos # (Auto) 0.16 K/uL (0-0.50) 03/05/23 18:07 Baso # (Auto) 0.05 K/uL (0-0.2) 03/05/23 18:07 Immature Gran # (Auto) 0.02 K/uL (0.01-0.20) 03/05/23 18:07 Sodium 141 mmol/L (136-145) 03/05/23 18:07 Potassium 4.0 mmol/L (3.5-5.1) 03/05/23 18:07 Chloride 108 mmol/L (98-107) H 03/05/23 18:07 Carbon Dioxide 25 mmol/L (21-32) 03/05/23 18:07 Anion Gap 8 (3-11) 03/05/23 18:07 BUN 14 mg/dl (6-23) 03/05/23 18:07 Creatinine 1.25 mg/dl (0.6-1.2) H 03/05/23 18:07 Est Cr Clr Drug Dosing 65.3 ml/min 03/05/23 18:07 Est GFR ( Amer) 53.8 ml/min 03/05/23 18:07 Est GFR (Non-Af Amer) 46.4 ml/min 03/05/23 18:07 BUN/Creatinine Ratio 11.2 (10-20) 03/05/23 18:07 Glucose 104 mg/dl (70-99(Fasting)) H 03/05/23 18:07 Calcium 8.4 mg/dl (8.6-10.3) L 03/05/23 18:07 Total Bilirubin 0.4 mg/dl (0.2-1.0) 03/05/23 18:07 AST 17 U/L (13-39) 03/05/23 18:07 ALT 11 U/L (7-52) 03/05/23 18:07 Alkaline Phosphatase 118 U/L (34-104) H 03/05/23 18:07 Total Protein 7.1 gm/dl (6.0-8.3) 03/05/23 18:07 Albumin 4.1 gm/dl (3.4-5.0) 03/05/23 18:07 Globulin 3.0 gm/dl (2.5-4.0) 03/05/23 18:07 Albumin/Globulin Ratio 1.4 (0.9-2) 03/05/23 18:07 Lipase 29 U/L (11-82) 03/05/23 18:07 HCG, Qual Positive (Negative) 03/05/23 18:07 HCG, Quant 16 mIU/ml 03/05/23 19:55 Urine Color Dark Yellow 03/05/23 19:57 Urine Appearance Cloudy (Clear) A 03/05/23 19:57 Urine pH 5.5 (4.5-7.5) 03/05/23 19:57 Ur Specific [place] 1.022 (1.000-1.030) 03/05/23 19:57 Urine Protein Trace (Negative) H 03/05/23 19:57 Urine Glucose (UA) Negative (Negative) 03/05/23 19:57 Urine Ketones Trace (Negative) H 03/05/23 19:57 Urine Blood Trace (Negative) H 03/05/23 19:57 Urine Nitrite Negative (Negative) 03/05/23 19:57 Urine Bilirubin Negative (Negative) 03/05/23 19:57 Urine Urobilinogen Negative (Negative) 03/05/23 19:57 Ur Leukocyte Esterase Trace (Negative) H 03/05/23 19:57 Urine WBC (Auto) 5-10 /hpf (0-5) H 03/05/23 19:57 Urine RBC (Auto) 10-30 /hpf (0-4) H 03/05/23 19:57 U Hyaline Cast (Auto) 10-30 /lpf (0-5) H 03/05/23 19:57 U Epithel Cells (Auto) >30 /lpf (0-5) H 03/05/23 19:57 Urine Bacteria (Auto) Negative (Negative) 03/05/23 19:57 SARS-CoV-2, RNA, NAAT NEGATIVE (NEGATIVE) 03/05/23 21:18 Impressions Gallbladder Ultrasound 03/05/23 17:31 Exam(s): US GALLBLADDER EXAM: US Abdomen Limited, Gallbladder CLINICAL HISTORY: Reason for exam: RUQ abdominal pain. TECHNIQUE: Real-time ultrasound of the right upper quadrant with image documentation. COMPARISON: No relevant prior studies available. FINDINGS: Gallbladder: Cholelithiasis. Negative Schneider sign. Common bile duct: 3 mm common bile duct. No stones. No dilation. Pancreas: Poor visualization of the pancreas. IMPRESSION: Cholelithiasis. No ultrasound evidence of acute cholecystitis. Electronically signed by: Wisam Urbina MD 03/05/23 20:50 PM Chest X-Ray 03/05/23 17:32 XR chest 2V PA/lateral CLINICAL HISTORY: RUQ abdominal pain into chest and shoulder COMPARISON STUDY: Chest radiograph August 05, 2022. FINDINGS: Lung volumes are normal. There is no consolidation to suggest pneumonia. Linear left lower lung density represents atelectasis or scarring. There is no pneumothorax or pleural effusion. Cardiac size is stable. M ediastinal contours are normal. There is no evidence for pulmonary edema. IMPRESSION: No acute cardiopulmonary findings. No significant change in appearance of the chest. ACT 112: Negative or not required by law. Electronically signed by: Enrrique Howe M.D. 03/05/2023 6:04 PM KUB X-Ray 03/05/23 17:32 KUB CLINICAL HISTORY: RUQ abdominal pain into chest and shoulder COMPARISON STUDY: CT of the abdomen and pelvis February 24, 2023. FINDINGS: Multiple right renal calculi measure up to 1.1 cm. Left renal calculi are not well visualized on this exam. The distal right ureteral calculus shown on CT of February 24, 2023 is difficult to assess for in this exam given numerous phleboliths. There is no evidence for a bowel obstruction. Postoperative findings within the abdomen are noted. Amount of stool is within normal limits. IMPRESSION: 1. Right-sided nephrolithiasis. Left renal calculi shown on prior CT obscured on this exam. 2. Distal right ureteral calculus on prior CT difficult to assess for given numerous phleboliths. 3. No bowel obstruction. ACT 112: Negative or not required by law. Electronically signed by: Enrrique Howe M.D. 03/05/2023 6:14 PM Laboratory Results Impressions Pelvis Ultrasound 03/05/23 21:09 Exam(s): US PELVIS EXAM: US Pelvis Transabdominal, Complete CLINICAL HISTORY: Reason for exam: elevated hcg L ovarian cyst. Cancer?. TECHNIQUE: Real-time complete transabdominal pelvic ultrasound with image documentation. COMPARISON: No relevant prior studies available. FINDINGS: Uterus/cervix: 1 mm endometrial complex. No myometrial mass. Right ovary: Nonvisualized RIGHT ovary. Left ovary: LEFT ovarian cyst measures 5.4 x 5.3 x 4.3 cm. Follow-up in 1-2 menstrual cycles. Normal blood flow. Free fluid: No free fluid. IMPRESSION: 1. Nonvisualized RIGHT ovary. 2. LEFT ovarian cyst measures 5.4 x 5.3 x 4.3 cm. Follow-up in 1-2 menstrual cycles. Electronically signed by: Wisam Urbina MD 03/05/23 22:53 PM Renal Ultrasound 03/05/23 21:30 Exam(s): US RENAL EXAM: US Retroperitoneal Limited, Renal CLINICAL HISTORY: Reason for exam: flank pain. TECHNIQUE: Real-time limited ultrasound of the retroperitoneum with image documentation. COMPARISON: No relevant prior studies available. FINDINGS: Right kidney: Unremarkable. No stones. No solid mass. No hydronephrosis. Left kidney: Unremarkable. No stones. No solid mass. No hydronephrosis. Bladder: Nonvisualized urinary bladder. IMPRESSION: No stones. No solid mass. No hydronephrosis. Electronically signed by: Wisam Urbina MD 03/05/23 22:46 PM Diagnostic Findings EKG as per my interpretation :Rate 65, NSR, normal axis, nonspecific T wave abnormalities
--- NOTE | 2023-03-05 22:47 | Ultrasound Report ---
Exam(s): US RENAL EXAM: US Retroperitoneal Limited, Renal CLINICAL HISTORY: Reason for exam: flank pain. TECHNIQUE: Real-time limited ultrasound of the retroperitoneum with image documentation. COMPARISON: No relevant prior studies available. FINDINGS: Right kidney: Unremarkable. No stones. No solid mass. No hydronephrosis. Left kidney: Unremarkable. No stones. No solid mass. No hydronephrosis. Bladder: Nonvisualized urinary bladder. IMPRESSION: No stones. No solid mass. No hydronephrosis. Electronically signed by: Wisam Urbina MD 03/05/23 22:46 PM
--- NOTE | 2023-03-05 22:54 | Ultrasound Report ---
Exam(s): US PELVIS EXAM: US Pelvis Transabdominal, Complete CLINICAL HISTORY: Reason for exam: elevated hcg L ovarian cyst. Cancer?. TECHNIQUE: Real-time complete transabdominal pelvic ultrasound with image documentation. COMPARISON: No relevant prior studies available. FINDINGS: Uterus/cervix: 1 mm endometrial complex. No myometrial mass. Right ovary: Nonvisualized RIGHT ovary. Left ovary: LEFT ovarian cyst measures 5.4 x 5.3 x 4.3 cm. Follow-up in 1-2 menstrual cycles. Normal blood flow. Free fluid: No free fluid. IMPRESSION: 1. Nonvisualized RIGHT ovary. 2. LEFT ovarian cyst measures 5.4 x 5.3 x 4.3 cm. Follow-up in 1-2 menstrual cycles. Electronically signed by: Wisam Urbina MD 03/05/23 22:53 PM
[2023-03-05] MEDS ORDERED: PROMETHAZINE HCL 12.5 MG in SODIUM CHLORIDE 0.9% 50 ML IV PRN (23:00)
[2023-03-05] MEDS ORDERED: LACTATED RINGER'S 1,000 ML IV ONE (23:00)
--- NOTE | 2023-03-05 23:33 | CT Scan Report ---
Exam(s): CT ABDOMEN + PELVIS Without Contrast EXAM: CT Abdomen and Pelvis Without Intravenous Contrast CLINICAL HISTORY: Reason for exam: r abd pain. TECHNIQUE: Axial computed tomography images of the abdomen and pelvis without intravenous contrast. CTDI is 28.28 mGy and DLP is 1577.75 mGy-cm. Automated exposure control was utilized for the study. A dose lowering technique was utilized adhering to the principles of ALARA. COMPARISON: No relevant prior studies available. FINDINGS: Lung bases: Unremarkable. No mass. No consolidation. ABDOMEN: Liver: Unremarkable. Gallbladder and bile ducts: Cholelithiasis. No ductal dilation. Pancreas: Unremarkable. No ductal dilation. Spleen: Unremarkable. No splenomegaly. Adrenals: Unremarkable. No mass. Kidneys and ureters: Nonobstructing bilateral renal calculi, measuring up to 9 mm in the RIGHT lower pole. Mild renal atrophy. No hydronephrosis. Stomach and bowel: Status post gastric bypass. No small bowel obstruction. Diverticulosis, without acute diverticulitis. No small bowel obstruction. No free intraperitoneal air. PELVIS: Appendix: Normal appendix. Bladder: Unremarkable. No stones. Reproductive: LEFT adnexal/ovarian cyst measures 5.0 x 4.9 cm. ABDOMEN and PELVIS: Intraperitoneal space: Unremarkable. No free air. No significant fluid collection. Bones/joints: Degenerative changes of the spine. No acute fracture. No dislocation. Soft tissues: Unremarkable. Vasculature: Atherosclerotic changes of the aorta. No abdominal aortic aneurysm. Lymph nodes: Unremarkable. No enlarged lymph nodes. IMPRESSION: 1. Cholelithiasis. 2. Nonobstructing bilateral renal calculi, measuring up to 9 mm in the RIGHT lower pole. Mild renal atrophy. No hydronephrosis. 3. LEFT adnexal/ovarian cyst measures 5.0 x 4.9 cm. Correlate with concomitant pelvic ultrasound. 4. Status post gastric bypass. No small bowel obstruction. 5. Diverticulosis, without acute diverticulitis. No small bowel obstruction. No free intraperitoneal air. Electronically signed by: Wisam Urbina MD 03/05/23 23:32 PM
[2023-03-05 23:59] LABS: Partial Thromboplastin Ratio 0.9; Partial Thromboplastin Time 25.3 Seconds (21.0-31.0)
[2023-03-06 00:15] LABS: Troponin I High Sensitivity 3.4 pg/ml (0-14)
[2023-03-06] MEDS ORDERED: INSULIN ASPART PER UNIT CHARGE SC SCH ×2 (00:54→06:00)
[2023-03-06] MEDS ORDERED: DEXTROSE 50% 50 ML SYRINGE IV PRN (00:54)
[2023-03-06] MEDS ORDERED: CARBOHYDRATES FOR HYPOGLYCEMIA PO PRN (00:54)
[2023-03-06] MEDS ORDERED: GLUCAGON FOR INJ 1 MG VIAL SQ PRN (00:54)
[2023-03-06] MEDS ORDERED: GLUCOSE 10 TAB/TUBE PO PRN (00:54)
[2023-03-06] MEDS ORDERED: GLUCOSE 40% GEL 15 GM TUBE PO PRN (00:54)
[2023-03-06] MEDS: MELATONIN 3 MG TAB PO PRN (01:26)
[2023-03-06] MEDS: oxyCODONE HCL IR 5 MG TAB (IMMEDIATE RELEASE) PO PRN ×2 (01:26→07:48)
[2023-03-06] MEDS: VERAPAMIL HCL 120 MG TABCR PO SCH ×2 (01:27→20:14)
[2023-03-06] MEDS: HYDROmorphone INJ 0.5 MG/0.5 ML SYR IV PRN (03:54)
[2023-03-06 06:08] LABS: Basophils # (auto) 0.04 K/uL (0-0.2); Basophils % (auto) 0.7 %; Eosinophils # (auto) 0.16 K/uL (0-0.50); Eosinophils % (auto) 2.7 %; Hematocrit (blood only) 33.2 % (37.0-47.0); Hemoglobin 10.1 g/dl (12.0-16.0); Immature Granulocytes # (auto) 0.02 K/uL (0.01-0.20); Immature Granulocytes % (auto) 0.3 %; Lymphocytes % (auto) 26.9 %; Mean Corpuscular Hemoglobin 22.9 pg (25.0-34.0); Mean Corpuscular Hgb Conc 30.4 g/dL (32.0-36.0); Mean Corpuscular Volume 75.1 fL (80.0-100.0); Mean Platelet Volume 9.5 fL (9.4-12.4); Monocytes # (auto) 0.55 K/uL (0.11-0.59); Monocytes % (auto) 9.3 %; Neutrophils # (auto) 3.57 K/uL (1.40-6.50); Neutrophils % (auto) 60.1 %; Platelet Count 306 K/uL (130-400); RDW Coefficient of Variation 16.4 % (11.5-14.5); RDW Standard Deviation 44.4 fL (36.4-46.3); Red Blood Count 4.42 M/uL (4.20-5.40); White Blood Count 5.94 K/ul (4.8-10.8)
[2023-03-06 06:25] LABS: Albumin Globulin Ratio 1.3 (0.9-2); Albumin Level 3.5 gm/dl (3.4-5.0); Bilirubin,Total 0.5 mg/dl (0.2-1.0); Calcium 8.4 mg/dl (8.6-10.3); Creatinine Clr Calc Pharmacy 61.4 ml/min; Est GFR (African American) 49.9 ml/min; Globulin 2.7 gm/dl (2.5-4.0); Potassium 3.8 mmol/L (3.5-5.1); Total Protein 6.2 gm/dl (6.0-8.3)
--- NOTE | 2023-03-06 09:48 | Hospitalist Progress Note ---
Date of Service March 06, 2023 Assessment & Plan (1) Biliary colic: Plan: 62yoF with RUQ pain/biliary colic in the setting of Hypertensive urgency. Also with Left adnexal lesion, positive test and elevated hcg. 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 Appreciate recs. CA-125 testing pending. HTN Currently controlled on metoprolol and verapamil Continue Mood/Insomnia on seroquel and lexapro, melatonin HLD on statin Diet: NPO after midnight DVT prophylaxis: None due to procedure in AM Dispo: Home once stable after surgery CODE STATUS: Full code (2) Left ovarian cyst: (3) Elevated serum hCG: (4) Cholelithiasis: (5) HTN (hypertension): (6) MDD (major depressive disorder): (7) KATHARINE (generalized anxiety disorder): Admission and Anticipated Discharge Date Admission Date: March 05, 2023 Subjective Pt states that she is having persistent pain in the RUQ. More concerned about her positive test in the setting of the ovarian lesion noted on imaging. States she was told a hormone is high and it is worrying her. She does note that she was told she had an ovarian cyst a few years ago but never followed up on it. Review of Systems Review of Systems: All systems reviewed & are unremarkable except as noted in Subjective Results & Data Results & Data Vital Signs (Past 12 Hours) Vital Signs Temp Pulse Pulse Resp BP BP Pulse Ox 03/06/23 07:52 36.6 C 58 L 18 134/67 92 03/06/23 07:37 03/06/23 06:03 61 03/06/23 05:12 36.6 C 72 20 134/79 93 03/06/23 00:37 60 03/06/23 00:58 36.8 C 16 143/74 H 97 03/05/23 22:43 69 20 171/97 H 94 O2 Del Method 03/06/23 07:52 Room Air 03/06/23 07:37 Room Air 03/06/23 06:03 03/06/23 05:12 Room Air 03/06/23 00:37 03/06/23 00:58 Room Air 03/05/23 22:43
--- NOTE | 2023-03-06 11:23 | Surgery Consultation ---
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 She has known gallstones and the pain was right sided radiating to her back. There was associated nausea. No fevers or chills. The pain is still present but better. US shows stones without obvious signs of cholecystitis. Allergies Allergy/AdvReac Type Severity Reaction Status Date / Time potassium AdvReac Severe Cardiac Verified 02/24/23 16:33 issues fluoxetine AdvReac Intermediate Hallucinati Verified 02/24/23 16:33 ons lorazepam AdvReac Intermediate Hallucinati Verified 02/24/23 16:33 ons Home Medications Medication Instructions Recorded Confirmed Type atorvastatin 10 mg tablet 10 mg PO HS 05/09/19 03/05/23 History escitalopram oxalate 20 mg tablet 20 mg PO HS 05/09/19 03/05/23 History metoprolol succinate 50 mg 50 mg PO HS 05/09/19 03/05/23 History tablet,extended release 24 hr quetiapine 200 mg tablet 200 mg PO HS 05/09/19 03/05/23 History verapamil 120 mg 24 hr 120 mg PO HS 05/09/19 03/05/23 History capsule,extended release melatonin 10 mg tablet 10 mg PO HS PRN Sleep 08/05/22 03/05/23 History Patient History Medical History (Updated 03/06/23 @ 11:25 by Clifton Greenberg MD) Cholelithiasis Chronic anemia CKD (chronic kidney disease), stage III Diabetes Per records Last Hgb A1C 6.4 per 10/30/20 PCP note. Diet controlled KATHARINE (generalized anxiety disorder) HTN (hypertension) Hx of supraventricular tachycardia Hyperlipidemia Kidney stones MDD (major depressive disorder) Migraine Morbid obesity Prediabetes PVC (premature ventricular contraction) Stroke Around 1989- residual mild weakness on right side. Surgical History History of arthroscopy of left shoulder History of x 2 Hx of arthroscopy of right knee Hx of dilation and curettage x 2 Hx of gastric bypass Family History Other Cancer Diabetes Dyslipidemia Heart disease Hypertension Social History Smoking Status: Never smoker Second Hand Exposure: No; Do You Dip or Chew Tobacco: No; Hx Alcohol Use: No Hx Substance Use: No Preferred Language: Georgian Communication Ability: Effective Mass Spectrometry Manager Required: No Beliefs That Will Affect Care: None Current Living Situation: Alone Current Living Situation Comment: Lives home with family Other Information That Helps Us Care for You: No Feels Safe at Home: Yes Assistive Devices: None Review of Systems Constitutional: no fever and no chills Eyes: no problem reported Ear, Nose, Mouth, Throat: no problem reported Respiratory: no cough and no dyspnea Cardiovascular: no chest pain Gastrointestinal: + abdominal pain and + nausea; no vomiting and no change in bowel habits Genitourinary: no dysuria Musculoskeletal: + back pain Integumentary: no change in skin color Neurologic: no localized weakness and no generalized weakness Psychiatric: no behavioral changes Endocrine: no fatigue Physical Exam Constitutional: WD/WN, vitals as above Eyes: PERRL, conjunctivae normal, anicteric sclerae ENMT: external ear and nose normal, oropharynx normal Neck: trachea midline Respiratory: normal respiratory effort, lungs clear to auscultation Cardiovascular: RRR, no murmur, no edema Gastrointestinal (Abdomen): Inspection/Auscultation: abdomen normal to inspection, normal bowel sounds and + abdominal surgical scar; abdomen not distended Percussion/Palpation: + abdomen tender and abdomen soft; no guarding and abdomen not rigid Musculoskeletal: Head/Neck/Chest: normocephalic and head atraumatic Skin: no rashes, warm and dry Results & Data Vital Signs (Past 12 Hours) Vital Signs Temp Pulse Pulse Resp BP Pulse Ox O2 Del Method 03/06/23 07:52 36.6 C 58 L 18 134/67 92 Room Air 03/06/23 07:37 Room Air 03/06/23 06:03 61 03/06/23 05:12 36.6 C 72 20 134/79 93 Room Air 03/06/23 00:37 60 03/06/23 00:58 36.8 C 16 143/74 H 97 Room Air Diagnostic Findings Exam(s): US GALLBLADDER EXAM: US Abdomen Limited, Gallbladder CLINICAL HISTORY: Reason for exam: RUQ abdominal pain. TECHNIQUE: Real-time ultrasound of the right upper quadrant with image documentation. COMPARISON: No relevant prior studies available. FINDINGS: Gallbladder: Cholelithiasis. Negative Schneider sign. Common bile duct: 3 mm common bile duct. No stones. No dilation. Pancreas: Poor visualization of the pancreas. IMPRESSION: Cholelithiasis. No ultrasound evidence of acute cholecystitis.
[2023-03-06] MEDS ORDERED: Nursing to Pharmacy Communication SCH (12:00)
[2023-03-06] MEDS: ACETAMINOPHEN 325 MG TAB PO PRN (12:10)
[2023-03-06] MEDS: INSULIN ASPART PER UNIT CHARGE SC SCH ×3 (13:10→20:10)
--- NOTE | 2023-03-06 13:10 | Electrocardiogram Report ---
Test Reason : Blood Pressure : / mmHG Vent. Rate : 064 BPM Atrial Rate : 064 BPM P-R Int : 136 ms QRS Dur : 084 ms QT Int : 432 ms P-R-T Axes : 014 -04 -09 degrees QTc Int : 445 ms Normal sinus rhythm Nonspecific T wave abnormality Abnormal ECG When compared with ECG of 07-AUG-2022 05:40, No significant change was found Confirmed by Fausto Ritter ([id number]) on 03/06/2023 1:10:19 PM Referred By: REFERRED SELF Confirmed By:Fausto Ritter
[2023-03-06] MEDS ORDERED: HYDROCORTISONE 1% CRM 30 GM TUBE EXT PRN (17:26)
[2023-03-06] MEDS ORDERED: TRIAMCINOLONE ACET 0.1% CR 80 GM TUBE EXT PRN (17:50)
[2023-03-06] MEDS ORDERED: hydrOXYzine HCl 25 MG TAB PO PRN (17:53)
--- NOTE | 2023-03-06 18:28 | OB/GYN Consultation ---
Date of Consultation March 06, 2023 Assessment & Plan (1) Left ovarian cyst: No change in left ovarian cyst since 2019 Tumor markers are pending As patient is scheduled to go to the OR tomorrow for lap yogi, will plan to do laparoscopic bilateral salpingo-oophorectomy, pelvic washings Consents were signed at the bedside including the risk of infection, bleeding that may require blood transfusion, hysterectomy stable and life, conversion to open, injury to bowel/bladder/uterus/ureters/nerves/vessels that may require additional surgery, DVT/PE, CA and stroke Consents were signed by the patient and myself, but is aware if findings are consistent with possible ovarian cancer, will get biopsies and terminate the procedure at that time as she should have a staging procedure with [facility] oncology Patient voiced her understanding and agreement with the plan. We will plan to do after her Gen surg has done their lap yogi History of Present Illness Reason for Consultation: Left ovarian cyst Attending Physician: Kaylen Amanda MD History of Present Illness Patient is a 62-year-old -0-2-2, postmenopausal female who presents to the hospital for biliary colic and hypertensive urgency. She is planned to go back for laparoscopic cholecystectomy in the morning, and noted left ovarian cyst that has been present since 2019. It was initially found when she was seen at [facility] ER on May 09, 2019 for back pain. She had a history of renal stones, and renal stones on CT but there were nonobstructing. I incidental left ovarian cyst that was 5.8 cm in size was noted. She had follow-up Ca1 25 level that was 17. She has not been seen by [facility] since 2019. Last Pap 2018, negative, no HPV testing SAbx2 CDx2 Allergies Allergy/AdvReac Type Severity Reaction Status Date / Time potassium AdvReac Severe Cardiac Verified 02/24/23 16:33 issues fluoxetine AdvReac Intermediate Hallucinati Verified 02/24/23 16:33 ons lorazepam AdvReac Intermediate Hallucinati Verified 02/24/23 16:33 ons Home Medications Medication Instructions Recorded Confirmed Type atorvastatin 10 mg tablet 10 mg PO HS 05/09/19 03/05/23 History escitalopram oxalate 20 mg tablet 20 mg PO HS 05/09/19 03/05/23 History metoprolol succinate 50 mg 50 mg PO HS 05/09/19 03/05/23 History tablet,extended release 24 hr quetiapine 200 mg tablet 200 mg PO HS 05/09/19 03/05/23 History verapamil 120 mg 24 hr 120 mg PO HS 05/09/19 03/05/23 History capsule,extended release melatonin 10 mg tablet 10 mg PO HS PRN Sleep 08/05/22 03/05/23 History Patient History Medical History Cholelithiasis Chronic anemia CKD (chronic kidney disease), stage III Diabetes Per records Last Hgb A1C 6.4 per 10/30/20 PCP note. Diet controlled KATHARINE (generalized anxiety disorder) HTN (hypertension) Hx of supraventricular tachycardia Hyperlipidemia Kidney stones MDD (major depressive disorder) Migraine Morbid obesity Prediabetes PVC (premature ventricular contraction) Stroke Around 1989- residual mild weakness on right side. Surgical History History of arthroscopy of left shoulder History of x 2 Hx of arthroscopy of right knee Hx of dilation and curettage x 2 Hx of gastric bypass Family History Other Cancer Diabetes Dyslipidemia Heart disease Hypertension Social History Smoking Status: Never smoker Second Hand Exposure: No; Do You Dip or Chew Tobacco: No; Hx Alcohol Use: No Hx Substance Use: No Preferred Language: Comoran Communication Ability: Effective Vp Strategic Partnerships Required: No Beliefs That Will Affect Care: None Current Living Situation: Alone Current Living Situation Comment: Lives home with family Other Information That Helps Us Care for You: No Feels Safe at Home: Yes Assistive Devices: None Review of Systems Review of Systems: All systems reviewed & are unremarkable except as noted in HPI & below Physical Exam Constitutional: WD/WN, vitals as above Respiratory: normal respiratory effort, lungs clear to auscultation Cardiovascular: RRR, no murmur, no edema Gastrointestinal (Abdomen): normal bowel sounds, soft, nontender, no hepatosplenomegaly morbid obesity Results & Data Vital Signs (Past 12 Hours) Vital Signs Temp Pulse Pulse Resp BP Pulse Ox O2 Del Method 03/06/23 14:05 59 L 03/06/23 15:21 36.4 C L 58 L 20 149/80 H 95 Room Air 03/06/23 11:56 36.6 C 57 L 20 139/74 94 Room Air 03/06/23 07:52 36.6 C 58 L 18 134/67 92 Room Air 03/06/23 07:37 Room Air Laboratory Results Laboratory Results WBC 5.94 K/ul (4.8-10.8) 03/06/23 05:46 RBC 4.42 M/uL (4.20-5.40) 03/06/23 05:46 Hgb 10.1 g/dl (12.0-16.0) L 03/06/23 05:46 Hct 33.2 % (37.0-47.0) L 03/06/23 05:46 MCV 75.1 fL (80.0-100.0) L 03/06/23 05:46 MCH 22.9 pg (25.0-34.0) L 03/06/23 05:46 MCHC 30.4 g/dL (32.0-36.0) L 03/06/23 05:46 RDW Std Deviation 44.4 fL (36.4-46.3) 03/06/23 05:46 RDW Coeff of Rebecca 16.4 % (11.5-14.5) H 03/06/23 05:46 Plt Count 306 K/uL (130-400) 03/06/23 05:46 MPV 9.5 fL (9.4-12.4) 03/06/23 05:46 Immature Gran % (Auto) 0.3 % 03/06/23 05:46 Neut % (Auto) 60.1 % 03/06/23 05:46 Lymph % (Auto) 26.9 % 03/06/23 05:46 [place] % (Auto) 9.3 % 03/06/23 05:46 Eos % (Auto) 2.7 % 03/06/23 05:46 Baso % (Auto) 0.7 % 03/06/23 05:46 Neut # (Auto) 3.57 K/uL (1.40-6.50) 03/06/23 05:46 Lymph # (Auto) 1.60 K/uL (1.2-3.4) 03/06/23 05:46 [place] # (Auto) 0.55 K/uL (0.11-0.59) 03/06/23 05:46 Eos # (Auto) 0.16 K/uL (0-0.50) 03/06/23 05:46 Baso # (Auto) 0.04 K/uL (0-0.2) 03/06/23 05:46 Immature Gran # (Auto) 0.02 K/uL (0.01-0.20) 03/06/23 05:46 APTT 25.3 Seconds (21.0-31.0) 03/05/23 18:07 PTT Ratio 0.9 03/05/23 18:07 Sodium 141 mmol/L (136-145) 03/06/23 05:46 Potassium 3.8 mmol/L (3.5-5.1) 03/06/23 05:46 Chloride 109 mmol/L (98-107) H 03/06/23 05:46 Carbon Dioxide 27 mmol/L (21-32) 03/06/23 05:46 Anion Gap 5 (3-11) 03/06/23 05:46 BUN 16 mg/dl (6-23) 03/06/23 05:46 Creatinine 1.33 mg/dl (0.6-1.2) H 03/06/23 05:46 Est Cr Clr Drug Dosing 61.4 ml/min 03/06/23 05:46 Est GFR ( Amer) 49.9 ml/min 03/06/23 05:46 Est GFR (Non-Af Amer) 43.0 ml/min 03/06/23 05:46 BUN/Creatinine Ratio 12.0 (10-20) 03/06/23 05:46 Glucose 98 mg/dl (70-99(Fasting)) 03/06/23 05:46 POC Glucose 94 mg/dl (70-99) 03/06/23 16:23 Calcium 8.4 mg/dl (8.6-10.3) L 03/06/23 05:46 Magnesium 2.0 mg/dl (1.7-2.4) 03/05/23 18:07 Total Bilirubin 0.5 mg/dl (0.2-1.0) 03/06/23 05:46 AST 11 U/L (13-39) L 03/06/23 05:46 ALT 9 U/L (7-52) 03/06/23 05:46 Alkaline Phosphatase 98 U/L (34-104) 03/06/23 05:46 Troponin I High Sens 3.4 pg/ml (0-14) 03/05/23 18:07 Total Protein 6.2 gm/dl (6.0-8.3) 03/06/23 05:46 Albumin 3.5 gm/dl (3.4-5.0) 03/06/23 05:46 Globulin 2.7 gm/dl (2.5-4.0) 03/06/23 05:46 Albumin/Globulin Ratio 1.3 (0.9-2) 03/06/23 05:46 Lipase 29 U/L (11-82) 03/05/23 18:07 HCG, Qual Positive (Negative) 03/05/23 18:07 HCG, Quant 16 mIU/ml 03/05/23 19:55 Urine Color Dark Yellow 03/05/23 19:57 Urine Appearance Cloudy (Clear) A 03/05/23 19:57 Urine pH 5.5 (4.5-7.5) 03/05/23 19:57 Ur Specific [place] 1.022 (1.000-1.030) 03/05/23 19:57 Urine Protein Trace (Negative) H 03/05/23 19:57 Urine Glucose (UA) Negative (Negative) 03/05/23 19:57 Urine Ketones Trace (Negative) H 03/05/23 19:57 Urine Blood Trace (Negative) H 03/05/23 19:57 Urine Nitrite Negative (Negative) 03/05/23 19:57 Urine Bilirubin Negative (Negative) 03/05/23 19:57 Urine Urobilinogen Negative (Negative) 03/05/23 19:57 Ur Leukocyte Esterase Trace (Negative) H 03/05/23 19:57 Urine WBC (Auto) 5-10 /hpf (0-5) H 03/05/23 19:57 Urine RBC (Auto) 10-30 /hpf (0-4) H 03/05/23 19:57 U Hyaline Cast (Auto) 10-30 /lpf (0-5) H 03/05/23 19:57 U Epithel Cells (Auto) >30 /lpf (0-5) H 03/05/23 19:57 Urine Bacteria (Auto) Negative (Negative) 03/05/23 19:57 SARS-CoV-2, RNA, NAAT NEGATIVE (NEGATIVE) 03/05/23 21:18 Impressions Gallbladder Ultrasound 03/05/23 17:31 Exam(s): US GALLBLADDER EXAM: US Abdomen Limited, Gallbladder CLINICAL HISTORY: Reason for exam: RUQ abdominal pain. TECHNIQUE: Real-time ultrasound of the right upper quadrant with image documentation. COMPARISON: No relevant prior studies available. FINDINGS: Gallbladder: Cholelithiasis. Negative Schneider sign. Common bile duct: 3 mm common bile duct. No stones. No dilation. Pancreas: Poor visualization of the pancreas. IMPRESSION: Cholelithiasis. No ultrasound evidence of acute cholecystitis. Electronically signed by: Wisam Urbina MD 03/05/23 20:50 PM Chest X-Ray 03/05/23 17:32 XR chest 2V PA/lateral CLINICAL HISTORY: RUQ abdominal pain into chest and shoulder COMPARISON STUDY: Chest radiograph August 05, 2022. FINDINGS: Lung volumes are normal. There is no consolidation to suggest pneumonia. Linear left lower lung density represents atelectasis or scarring. There is no pneumothorax or pleural effusion. Cardiac size is stable. Mediastinal contours are normal. There is no evidence for pulmonary edema. IMPRESSION: No acute cardiopulmonary findings. No significant change in ap pearance of the chest. ACT 112: Negative or not required by law. Electronically signed by: Enrrique Howe M.D. 03/05/2023 6:04 PM KUB X-Ray 03/05/23 17:32 KUB CLINICAL HISTORY: RUQ abdominal pain into chest and shoulder COMPARISON STUDY: CT of the abdomen and pelvis February 24, 2023. FINDINGS: Multiple right renal calculi measure up to 1.1 cm. Left renal calculi are not well visualized on this exam. The distal right ureteral calculus shown on CT of February 24, 2023 is difficult to assess for in this exam given numerous phleboliths. There is no evidence for a bowel obstruction. Postoperative findings within the abdomen are noted. Amount of stool is within normal limits. IMPRESSION: 1. Right-sided nephrolithiasis. Left renal calculi shown on prior CT obscured on this exam. 2. Distal right ureteral calculus on prior CT difficult to assess for given numerous phleboliths. 3. No bowel obstruction. ACT 112: Negative or not required by law. Electronically signed by: Enrrique Howe M.D. 03/05/2023 6:14 PM Pelvis Ultrasound 03/05/23 21:09 Exam(s): US PELVIS EXAM: US Pelvis Transabdominal, Complete CLINICAL HISTORY: Reason for exam: elevated hcg L ovarian cyst. Cancer?. TECHNIQUE: Real-time complete transabdominal pelvic ultrasound with image documentation. COMPARISON: No relevant prior studies available. FINDINGS: Uterus/cervix: 1 mm endometrial complex. No myometrial mass. Right ovary: Nonvisualized RIGHT ovary. Left ovary: LEFT ovarian cyst measures 5.4 x 5.3 x 4.3 cm. Follow-up in 1-2 menstrual cycles. Normal blood flow. Free fluid: No free fluid. IMPRESSION: 1. Nonvisualized RIGHT ovary. 2. LEFT ovarian cyst measures 5.4 x 5.3 x 4.3 cm. Follow-up in 1-2 menstrual cycles. Electronically signed by: Wisam Urbina MD 03/05/23 22:53 PM Renal Ultrasound 03/05/23 21:30 Exam(s): US RENAL EXAM: US Retroperitoneal Limited, Renal CLINICAL HISTORY: Reason for exam: flank pain. TECHNIQUE: Real-time limited ultrasound of the retroperitoneum with image documentation. COMPARISON: No relevant prior studies available. FINDINGS: Right kidney: Unremarkable. No stones. No solid mass. No hydronephrosis. Left kidney: Unremarkable. No stones. No solid mass. No hydronephrosis. Bladder: Nonvisualized urinary bladder. IMPRESSION: No stones. No solid mass. No hydronephrosis. Electronically signed by: Wisam Urbina MD 03/05/23 22:46 PM Abdomen/Pelvis CT 03/05/23 22:56 Exam(s): CT ABDOMEN + PELVIS Without Contrast EXAM: CT Abdomen and Pelvis Without Intravenous Contrast CLINICAL HISTORY: Reason for exam: r abd pain. TECHNIQUE: Axial computed tomography images of the abdomen and pelvis without intravenous contrast. CTDI is 28.28 mGy and DLP is 1577.75 mGy-cm. Automated exposure control was utilized for the study. A dose lowering technique was utilized adhering to the principles of ALARA. COMPARISON: No relevant prior studies available. FINDINGS: Lung bases: Unremarkable. No mass. No consolidation. ABDOMEN: Liver: Unremarkable. Gallbladder and bile ducts: Cholelithiasis. No ductal dilation. Pancreas: Unremarkable. No ductal dilation. Spleen: Unremarkable. No splenomegaly. Adrenals: Unremarkable. No mass. Kidneys and ureters: Nonobstructing bilateral renal calculi, measuring up to 9 mm in the RIGHT lower pole. Mild renal atrophy. No hydronephrosis. Stomach and bowel: Status post gastric bypass. No small bowel obstruction. Diverticulosis, without acute diverticulitis. No small bowel obstruction. No free intraperitoneal air. PELVIS: Appendix: Normal appendix. Bladder: Unremarkable. No stones. Reproductive: LEFT adnexal/ovarian cyst measures 5.0 x 4.9 cm. ABDOMEN and PELVIS: Intraperitoneal space: Unremarkable. No free air. No significant fluid collection. Bones/joints: Degenerative changes of the spine. No acute fracture. No dislocation. Soft tissues: Unremarkable. Vasculature: Atherosclerotic changes of the aorta. No abdominal aortic aneurysm. Lymph nodes: Unremarkable. No enlarged lymph nodes. IMPRESSION: 1. Cholelithiasis. 2. Nonobstructing bilateral renal calculi, measuring up to 9 mm in the RIGHT lower pole. Mild renal atrophy. No hydronephrosis. 3. LEFT adnexal/ovarian cyst measures 5.0 x 4.9 cm. Correlate with concomitant pelvic ultrasound. 4. Status post gastric bypass. No small bowel obstruction. 5. Diverticulosis, without acute diverticulitis. No small bowel obstruction. No free intraperitoneal air. Electronically signed by: Wisam Urbina MD 03/05/23 23:32 PM
[2023-03-06] MEDS: ATORVASTATIN 10 MG TAB PO SCH (20:11)
[2023-03-06] MEDS: ESCITALOPRAM OXALATE 20 MG TAB PO SCH (20:11)
[2023-03-06] MEDS: QUEtiapine FUMARATE 200 MG TAB PO SCH (20:12)
[2023-03-06] MEDS: METOPROLOL SUCC 50MG EXT REL TAB PO SCH (20:16)
[2023-03-07] MEDS: INSULIN ASPART PER UNIT CHARGE SC SCH ×4 (05:39→20:21)
[2023-03-07] MEDS ORDERED: BUPIVACAINE/EPINEPHRINE 0.5% MPF 1:200,000 30 ML VIAL ONE (07:06)
[2023-03-07] MEDS ORDERED: SUCCINYLCHOLINE CHLORIDE 20 MG/ML 10 ML VIAL IV ONE (07:11)
[2023-03-07] MEDS ORDERED: DEXAMETHASONE SOD INJ 4 MG/ML VIAL ONE (07:11)
[2023-03-07] MEDS ORDERED: ONDANSETRON INJ 2 MG/ML 2 ML VIAL ONE (07:11)
[2023-03-07] MEDS ORDERED: ROCURONIUM BROMIDE 10 MG/ML 5 ML VIAL IV ONE ×3 (07:11→09:07)
[2023-03-07] MEDS ORDERED: PROPOFOL IV EMULSION 10 MG/ML 20 ML VIAL IV ONE (07:11)
[2023-03-07] MEDS ORDERED: SUGAMMADEX SODIUM 200 MG/2 ML VIAL IV ONE ×2 (07:11→09:04)
[2023-03-07] MEDS ORDERED: fentaNYL citrate PF 100 MCG/2 ML VIAL ONE ×3 (07:11→11:29)
--- NOTE | 2023-03-07 07:13 | Anesthesiology Consultation ---
Date of Service March 07, 2023 Assessment & Plan Chart Review Chart Review: Acceptable Risk for Surgery and Patient NOT seen in Pre Admission Testing Consults Requested none ASA ASA4 Proposed Anesthesia Anesthesia Type: General History Surgery Operation Date: 03/07/23 07:30 Proposed Procedures p Laparoscopic Cholecystectomy - Clifton Greenberg MD Height/Weight Height: 5 ft 6 in Weight: 130 kg Allergies Allergy/AdvReac Type Severity Reaction Status Date / Time potassium AdvReac Severe Cardiac Verified 02/24/23 16:33 issues fluoxetine AdvReac Intermediate Hallucinati Verified 02/24/23 16:33 ons lorazepam AdvReac Intermediate Hallucinati Verified 02/24/23 16:33 ons Medications Home Medications Medication Instructions Recorded Confirmed Last Taken atorvastatin 10 mg tablet 10 mg PO HS 05/09/19 03/05/23 02/23/23 escitalopram oxalate 20 mg tablet 20 mg PO HS 05/09/19 03/05/23 02/23/23 metoprolol succinate 50 mg 50 mg PO HS 05/09/19 03/05/23 02/23/23 tablet,extended release 24 hr quetiapine 200 mg tablet 200 mg PO HS 05/09/19 03/05/23 02/23/23 verapamil 120 mg 24 hr 120 mg PO HS 05/09/19 03/05/23 02/23/23 capsule,extended release melatonin 10 mg tablet 10 mg PO HS PRN Sleep 08/05/22 03/05/23 08/04/22 Active Medications Generic Name Dose Route Start Last Admin Trade Name Freq PRN Reason Stop Dose Admin Acetaminophen 650 mg 03/06/23 00:54 03/06/23 12:10 Acetaminophen 325 Mg Tab PO 04/05/23 00:53 650 mg Q4H PRN Administration Pain or Fever Atorvastatin Calcium 10 mg 03/06/23 21:00 03/06/23 20:11 Atorvastatin 10 Mg Tab PO 04/05/23 20:59 10 mg HS MADONNA Administration Escitalopram Oxalate 20 mg 03/06/23 21:00 03/06/23 20:11 Escitalopram Oxalate 20 Mg Tab PO 04/05/23 20:59 20 mg HS MADONNA Administration Hydrocortisone 1 appln 03/06/23 17:26 03/06/23 18:16 Hydrocortisone 1% Crm 30 Gm Tube EXT 04/05/23 17:25 1 appln TID PRN Administration Itching Hydromorphone HCl 0.5 mg 03/05/23 23:00 03/06/23 03:54 Hydromorphone Inj 0.5 Mg/0.5 Ml Syr IV 03/19/23 22:59 0.5 mg Q3H PRN Administration Pain Insulin Aspart 0 units 03/07/23 06:00 03/07/23 05:39 Insulin Aspart Per Unit Charge SC 04/06/23 05:59 Not Given Q6 MADONNA Melatonin 9 mg 03/06/23 00:54 03/06/23 01:26 Melatonin 3 Mg Tab PO 9 mg HS PRN Administration Sleep Metoprolol Succinate 50 mg 03/06/23 21:00 03/06/23 20:16 Metoprolol Succ 50mg Ext Rel Tab PO 04/05/23 20:59 50 mg HS MADONNA Administration Oxycodone HCl 5 - 10 mg 03/05/23 23:00 03/06/23 07:48 Oxycodone Hcl Ir 5 Mg Tab (Immediate Release) PO 03/19/23 22:59 5 mg QID PRN Administration Pain Quetiapine Fumarate 200 mg 03/06/23 21:00 03/06/23 20:12 Quetiapine Fumarate 200 Mg Tab PO 04/05/23 20:59 200 mg HS MADONNA Administration Verapamil HCl 120 mg 03/06/23 00:54 03/06/23 20:14 Verapamil Hcl 120 Mg Tabcr PO 04/05/23 00:53 120 mg HS MADONNA Administration NPO Date Last Intake of Fluids: 03/06/23 Time Last Intake of Fluids: 23:35 Date Last Intake of Solids: 03/05/23 Past Medical History Medical History Cholelithiasis Chronic anemia CKD (chronic kidney disease), stage III Diabetes Per records Last Hgb A1C 6.4 per 10/30/20 PCP note. Diet controlled KATHARINE (generalized anxiety disorder) HTN (hypertension) Hx of supraventricular tachycardia Hyperlipidemia Kidney stones MDD (major depressive disorder) Migraine Morbid obesity Prediabetes PVC (premature ventricular contraction) Stroke Around 1989- residual mild weakness on right side. Exercise / Class Metabolic Activity III < 4 Walking/Shop/Light housework Past Family History Family History Other Cancer Diabetes Dyslipidemia Heart disease Hypertension Past Surgical History Surgical History History of arthroscopy of left shoulder History of x 2 Hx of arthroscopy of right knee Hx of dilation and curettage x 2 Hx of gastric bypass Past Anesthesia History No Hx of Anesthesia Complications and No Family Hx of Anesthesia Complications History of PONV No Hx of PONV and No Hx of Motion Sickness Social History Smoking Status: Never smoker Do You Dip or Chew Tobacco: No Hx Alcohol Use: No Hx Substance Use: No substance use type: does not use Physical Exam Vital Signs Last Vital Signs Temp 36.5 C 03/07/23 03:24 Pulse 66 03/07/23 03:24 Resp 16 03/07/23 03:24 BP 163/85 H 03/07/23 03:24 Pulse Ox 95 03/07/23 03:24 O2 Del Method Room Air 03/07/23 03:24 Testing Laboratory Results 03/06/23 05:46 03/06/23 05:46 APTT 25.3 Seconds (21.0-31.0) 03/05/23 18:07 HCG, Quant 16 mIU/ml 03/05/23 19:55 Urine Color Dark Yellow 03/05/23 19:57 Urine Appearance Cloudy (Clear) A 03/05/23 19:57 Urine pH 5.5 (4.5-7.5) 03/05/23 19:57 Ur Specific [place] 1.022 (1.000-1.030) 03/05/23 19:57 Urine Protein Trace (Negative) H 03/05/23 19:57 Urine Glucose (UA) Negative (Negative) 03/05/23 19:57 Urine Ketones Trace (Negative) H 03/05/23 19:57 Urine Nitrite Negative (Negative) 03/05/23 19:57 Ur Leukocyte Esterase Trace (Negative) H 03/05/23 19:57 Urine WBC (Auto) 5-10 /hpf (0-5) H 03/05/23 19:57 Urine RBC (Auto) 10-30 /hpf (0-4) H 03/05/23 19:57 U Hyaline Cast (Auto) 10-30 /lpf (0-5) H 03/05/23 19:57 U Epithel Cells (Auto) >30 /lpf (0-5) H 03/05/23 19:57 Urine Bacteria (Auto) Negative (Negative) 03/05/23 19:57 03/07/23 03/06/23 05:35 20:08 POC Glucose 103 H 93 03/05/23 19:55 HCG, Quant 16 Electrocardiogram Date: 03/05/23 Findings: + NSR @ (@ 64) and + NSST changes Chest X-Ray Date: 03/05/23 Findings: + NAD Echocardiogram Date: 08/05/22 EF: 60% LV Function: normal RWMA: + none Other Findings: + LVH Valvular Disease: + no significant valvular disease
--- NOTE | 2023-03-07 07:16 | History & Physical Bridge Note ---
Date of Service March 07, 2023 History & Physical Bridge Note I have examined the patient, reviewed the History & Physical and in the interval since the performance of the History & Physical I have noted the following changes of clinical significance: no changes noted
[2023-03-07] MEDS ORDERED: FLUMAZENIL 0.1 MG/1 ML 10 ML VIAL IV PRN (07:42)
[2023-03-07] MEDS ORDERED: PROMETHAZINE HCL 12.5 MG in SODIUM CHLORIDE 0.9% 50 ML IV PRN (07:42)
[2023-03-07] MEDS ORDERED: ePHEDrine sulfate 50 MG/ML AMP IV PRN (07:42)
[2023-03-07] MEDS ORDERED: ATROPINE SULFATE 0.1 MG/ML 10ML SYR IV PRN (07:42)
[2023-03-07] MEDS ORDERED: HYDROmorphone INJ 1 MG/ML SYRINGE IV PRN (07:42)
[2023-03-07] MEDS ORDERED: NALOXONE HCL 0.4 MG/1 ML VIAL/CARP IV PRN (07:42)
[2023-03-07 08:07] LABS: Basophils # (auto) 0.03 K/uL (0-0.2); Basophils % (auto) 0.6 %; Eosinophils # (auto) 0.22 K/uL (0-0.50); Eosinophils % (auto) 4.5 %; Hematocrit (blood only) 32.3 % (37.0-47.0); Hemoglobin 9.9 g/dl (12.0-16.0); Immature Granulocytes # (auto) 0.01 K/uL (0.01-0.20); Immature Granulocytes % (auto) 0.2 %; Lymphocytes # (auto) 0.95 K/uL (1.2-3.4); Lymphocytes % (auto) 19.2 %; Mean Corpuscular Hemoglobin 23.1 pg (25.0-34.0); Mean Corpuscular Hgb Conc 30.7 g/dL (32.0-36.0); Mean Corpuscular Volume 75.3 fL (80.0-100.0); Mean Platelet Volume 9.7 fL (9.4-12.4); Monocytes # (auto) 0.42 K/uL (0.11-0.59); Monocytes % (auto) 8.5 %; Neutrophils # (auto) 3.31 K/uL (1.40-6.50); Platelet Count 279 K/uL (130-400); RDW Coefficient of Variation 16.3 % (11.5-14.5); RDW Standard Deviation 44.5 fL (36.4-46.3); Red Blood Count 4.29 M/uL (4.20-5.40); White Blood Count 4.94 K/ul (4.8-10.8)
[2023-03-07] MEDS ORDERED: KETAMINE 50 MG/5 ML SYRINGE ONE (08:09)
[2023-03-07 08:15] LABS: BUN Creatinine Ratio 11.1 (10-20); Calcium 8.7 mg/dl (8.6-10.3); Creatinine Clr Calc Pharmacy 69.8 ml/min; Est GFR (African American) 58.2 ml/min; Est GFR (Non-African American) 50.3 ml/min
[2023-03-07] MEDS ORDERED: ceFAZolin 330 MG/ML 1 GM VIAL ONE (08:30)
--- NOTE | 2023-03-07 09:22 | Post Operative Brief Note ---
Immediate Post Op Note v1 Date of Surgery March 07, 2023 Pre & Post Diagnosis Operation Date: 03/07/23 07:30 Pre-Op Diagnosis: 1. Cholelithiasis 2. Left ovarian cyst Post-Op Diagnosis: 1. Cholelithiasis 2. Left ovarian cyst I identified the patient and participated in the time-out.: Yes Procedure Operation Date: 03/07/23 07:30 Actual Procedures p Laparoscopic Cholecystectomy(Not Applicable) - Clifton Greenberg MD s Laparoscopic Bilateral Salpingoopherectomy and Pelvic Washings(Not Applicable) - Rosalinda Vázquez MD, PhD Surgeon Clifton Greenebrg MD [employer] none Estimated Blood Loss 20 Findings Consistent with Post-Op Diagnosis gallstones with minimal inflammation Drains Edwards Catheter (16f; inserted by Surgeon; 10cc in balloon; clear yellow urine returned)
[2023-03-07] MEDS ORDERED: TISSEEL FIBRIN SEALANT 10ML TOP ONE (10:16)
--- NOTE | 2023-03-07 11:11 | Operative Report ---
Post Operative Report Pre & Post Diagnosis Operation Date: 03/07/23 07:30 Pre-Op Diagnosis: 1. Cholelithiasis 2. Left ovarian cyst Post-Op Diagnosis: 1. Cholelithiasis 2. Left ovarian cyst 3. Omental adhesions I identified the patient and participated in the time-out.: Yes Procedure Operation Date: 03/07/23 07:30 Actual Procedures p Laparoscopic Cholecystectomy(Not Applicable) - Clifton Greenberg MD s Laparoscopic Left Salpingoopherectomy and Pelvic Washings, lysis of adhesions (Not Applicable) - Rosalinda Vázquez MD, PhD Surgeon Rosalinda Vázquez MD, PhD Head [employer]va Reactor Operator Donn Hutton MD, Mehreen Greenberg MD Estimated Blood Loss 40 Findings Consistent with Post-Op Diagnosis External genitalia: Normal Vagina: Normal Cervix: anterior, atrophic Multiple abdominal omental adhesions to the anterior abdominal wall Uterus: Normal Left and right fallopian tube appeared normal Left ovary approximately 5 cm ovarian cyst Right ovary appeared normal Fluids See anesthesia record Specimens Left ovary and fallopian tube Drains Lee Anesthesia Type General Complications None Disposition Accompanied Patient To Recovery: No Disposition: Recovery Room Indications Left ovarian cyst Description of Procedure OPERATIVE REPORT The patient was taken to the operating room where general anesthesia was found to be adequate. She was placed in [facility] stirrups. She was prepped and draped in a sterile fashion. At this point Dr. Greenberg had already completed her laparoscopic cholecystectomy. The bladder was drained with a lee and a uterine manipulator (sponge stick) was placed in a sterile fashion. Attention was turned of the abdomen in a sterile fashion. Trendelenburg positioning was obtained. After infusion of local anesthesia , a left 5 mm port was placed under laparoscopic visualization in the left lower quadrant. The underlying bowel and vasculature were inspected and found to be free from injury. Additional 5 mm left port approximately 9 cm from umbilical port site was placed under laparoscopic visualization. At this point the case was complicated due to omental adhesions in the midline, that may need visualization of the ovaries quite difficult. While we were then able to move the camera to another port site, I was unable to grasp the left fallopian tube and ovary and lift off the IP, ligating and coagulating with the LigaSure device up to the utero-ovarian ligament. The left ovary and fallopian tube was then placed into 10 mm bag that was brought up through the umbilicus. During this time, the bag ruptured, and the ovary dropped into the abdomen. It was within the omental adhesions, and at this time I used a LigaSure device to take down multiple omental adhesions along the anterior abdominal wall, good hemostasis was noted. Dr Greenberg came in to assist at this point and was again able to place the ovary within a 10 mm bag, and bring out through the umbilical port site. The bag again ruptured, but the ovary was able to be removed intact without rupturing. Due to the technical difficulties of this case, the remainder of the right salpingo-oophorectomy was abandoned. Good hemostasis had been noted at the left IP prior to termination of the procedure Evaluation of the upper abdomen revealed no further pathology. Pneumoperitoneum was released and the trocars were removed. Dr. Greenberg then closed the umbilical port with 0 PDS in a running fashion. The skin was then closed with shy. The remainder of the 3 laparoscopic incisions were closed with 4-0 Vicryl in a subcuticular fashion. Dermabond was placed over the incisions. The uterine manipulator was removed and hemostasis ensured. The patient was cleaned and dried and legs brought down from lithotomy position simultaneously. The patient was extubated and transferred to recovery in stable condition. Sponge, lap and needle counts were reported correct by the nursing staff following the procedure. Attestation: My Head Mva Reactor Operator was necessary throughout the procedure(s) for tissue retraction, camera operation I understand that section 1842 (b)(7)(D) of the Social Security Act generally prohibits Medicare physician fee schedule payment for the services of [id number] in teaching hospitals when qualified residents are available to furnish such services. I certify that the services for which payment is claimed were medically necessary, and that no qualified resident was available to perform the services. I further understand that these services are subject to post-payment review by the Medicare carrier. Beto Vázquez MD PhD I attest to the content of the Intraoperative Record and any orders documented therein. Any exceptions are noted below.
[2023-03-07] MEDS: fentaNYL citrate PF 100 MCG/2 ML VIAL IV PRN ×4 (11:25→11:40)
--- NOTE | 2023-03-07 11:52 | Anesthesiology Progress Note ---
Date of Service March 07, 2023 Anesthesia Post Procedure Vital Signs Vital Signs: Temp Pulse Pulse Pulse Resp BP BP 03/07/23 11:45 64 16 159/76 H 03/07/23 11:35 71 12 154/91 H 03/07/23 11:15 66 19 142/68 H 03/07/23 11:25 65 20 140/74 03/07/23 11:05 36.6 C 70 14 149/86 H 03/07/23 07:46 36.7 C 59 L 18 152/87 H 03/07/23 05:44 57 L 03/07/23 07:17 03/07/23 03:24 36.5 C 66 16 163/85 H 03/06/23 22:11 58 L 03/06/23 22:42 36.6 C 60 16 131/80 03/06/23 19:44 36.7 C 62 18 165/80 H 03/06/23 14:05 59 L 03/06/23 15:21 36.4 C L 58 L 20 149/80 H 03/06/23 11:56 36.6 C 57 L 20 139/74 Pulse Ox O2 Del Method O2 Flow Rate 03/07/23 11:45 95 Oxymask 2 03/07/23 11:35 98 Oxymask 2 03/07/23 11:15 99 Oxymask 6 03/07/23 11:25 98 Oxymask 4 03/07/23 11:05 99 Oxymask 6 03/07/23 07:46 95 Room Air 03/07/23 05:44 03/07/23 07:17 Room Air 03/07/23 03:24 95 Room Air 03/06/23 22:11 03/06/23 22:42 94 Room Air 03/06/23 19:44 94 Room Air 03/06/23 14:05 03/06/23 15:21 95 Room Air 03/06/23 11:56 94 Room Air Pain Intensity Abdomen: Pain Intensity: 4 Transfer of Care Handoff Completed per policy Notes Mental Status: alert / awake / arousable Patient Amnestic to Procedure: Yes Nausea / Vomiting: adequately controlled Pain: adequately controlled Airway Patency, RR, SpO2: stable & adequate BP & HR: stable & adequate Hydration State: stable & adequate Anesthetic Complications: no major complications apparent
[2023-03-07] MEDS ORDERED: MoRPHine SULFATE 2 MG/ML CARP IV PRN (12:18)
[2023-03-07] MEDS ORDERED: MoRPHine SULFATE 4 MG/ML 1 ML CARP\\VIAL IV PRN (12:18)
[2023-03-07] MEDS ORDERED: oxyCODONE/ACETAMINOPHEN 5mg/325mg TAB PO PRN (12:18)
[2023-03-07] MEDS ORDERED: ONDANSETRON INJ 2 MG/ML 2 ML VIAL IV PRN (12:18)
[2023-03-07] MEDS: oxyCODONE/ACETAMINOPHEN 5mg/325mg TAB PO PRN ×2 (14:43→23:45)
[2023-03-07] MEDS: HYDROmorphone INJ 0.5 MG/0.5 ML SYR IV PRN ×3 (16:15→22:28)
[2023-03-07] MEDS ORDERED: HYDROmorphone INJ 0.5 MG/0.5 ML SYR IV PRN (18:51)
[2023-03-07] MEDS ORDERED: GADOBUTROL 15ML VIAL IV ONE (20:02)
[2023-03-07] MEDS: ESCITALOPRAM OXALATE 20 MG TAB PO SCH (20:17)
[2023-03-07] MEDS: METOPROLOL SUCC 50MG EXT REL TAB PO SCH (20:17)
[2023-03-07] MEDS: ATORVASTATIN 10 MG TAB PO SCH (20:17)
[2023-03-07] MEDS: VERAPAMIL HCL 120 MG TABCR PO SCH (20:17)
[2023-03-07] MEDS: QUEtiapine FUMARATE 200 MG TAB PO SCH (20:17)
--- NOTE | 2023-03-07 20:27 | Magnetic Resonance Report ---
MRI OF THE BRAIN COMBO CLINICAL HISTORY: Visual changes after surgery. COMPARISON STUDY: CT of the brain dated 08/05/2022. TECHNIQUE: MRI of the brain was performed utilizing various T1 and T2-weighted sequences in the axial , sagittal, and coronal planes. Contrast-enhanced sequences were acquired following the administratio n of 13 cc of Gadavist. FINDINGS: Brain parenchyma: There is age-related involutional change noting mild to moderate patchy subcortical and periventricular microangiopathic disease. There is no hemorrhage or mass effect. There is no res tricted diffusion to suggest acute ischemia. No enhancing mass lesion is identified on the postcontra st images. Naranjo-white matter differentiation is preserved. No extra-axial fluid collection is seen. T he cerebellar tonsils are normal in configuration. Ventricles, sulci, and cisterns: Prominent secondary to positional change. Pituitary and sella: Unremarkable. Intracranial vasculature: Normal flow voids are maintained at the skull base. Orbits: The bony orbits are grossly intact. Orbital contents are normal in appearance. Sinuses and mastoids: There is mild mucosal thickening within the maxillary antra. Trace mucosal thic kening is seen in the sphenoid sinuses. There is trace right mastoid effusion. Calvarium: Unremarkable. Cervical cord: Partially visualized cervical spinal cord is normal in morphology and signal intensity . IMPRESSION: No acute intracranial abnormality. ACT 112: Negative or not required by law. Electronically signed by: Yury Rico M.D. 03/07/2023 8:25 PM
--- NOTE | 2023-03-07 20:34 | Hospitalist Progress Note ---
Date of Service March 07, 2023 Assessment & Plan (1) Biliary colic: Plan: 62yoF with RUQ pain/biliary colic and left adnexal lesion, positive test and elevated hcg who is s/p cholecystectomy and L salpingo-oopherectomy. Hypertensive Urgency/RUQ pain/Biliary colic CT abd/pelvis, gallbladder US: showed cholelithiasis s/p cholecystectomy with Gen Surgery on 03/07 Adnexal lesion/positive test/Elevated HCG Pelvic US- noted 5x5cm left ovarian cyst HCG level of 16 Positive test Pt has been postmenopausal for about 8 years s/p L salpingo-oopherectomy with [employer] on 03/07 CA-125, CA-19 testing pending. HTN Currently controlled on metoprolol and verapamil Continue Mood/Insomnia on seroquel and lexapro, melatonin HLD on statin Itching Has steroid creams and hydroxyzine ordered Diet: advancing per Gen Surg, currently clear liquids DVT prophylaxis: Heparin SQ ordered post op CODE STATUS: Full code (2) Left ovarian cyst: (3) Elevated serum hCG: (4) Cholelithiasis: (5) HTN (hypertension): (6) MDD (major depressive disorder): (7) KATHARINE (generalized anxiety disorder): Admission and Anticipated Discharge Date Admission Date: March 05, 2023 Subjective Pt seen post-op multiple times. Stated that her pain was controlled except when she moved. At bedside once more as pt stated she had blurry vision and was unable to see her phone or the TV, change in color. STAT MRI was ordered. Review of Systems Review of Systems: All systems reviewed & are unremarkable except as noted in Subjective Physical Exam Physical Exam: General: Alert, oriented. No acute distress Psych: Appropriate mood and affect Neuro: States she has pain post-op with movement HEENT: NC/AT CV: RRR, Normal s1, s2. Resp: no increased effort of breathing. Abdomen:Soft, tender Extremities: No edema in lower extremities bilaterally. Results & Data Results & Data Vital Signs (Past 12 Hours) Vital Signs Temp Pulse Pulse Pulse Resp BP Pulse Ox 03/07/23 19:08 36.9 C 67 18 171/81 H 97 03/07/23 17:28 37.0 C 77 20 159/77 H 97 03/07/23 14:16 67 03/07/23 15:21 36.9 C 69 20 155/77 H 96 03/07/23 13:48 36.6 C 65 20 144/96 H 96 03/07/23 12:48 36.9 C 62 18 157/98 H 96 03/07/23 12:18 36.5 C 63 18 149/83 H 97 03/07/23 11:55 36.2 C L 64 19 144/79 H 97 03/07/23 11:45 64 16 159/76 H 95 03/07/23 11:35 71 12 154/91 H 98 03/07/23 11:15 66 19 142/68 H 99 03/07/23 11:25 65 20 140/74 98 03/07/23 11:05 36.6 C 70 14 149/86 H 99 O2 Del Method O2 Flow Rate 03/07/23 19:08 Nasal Cannula 2 03/07/23 17:28 Room Air 03/07/23 14:16 03/07/23 15:21 Nasal Cannula 2 03/07/23 13:48 Room Air 03/07/23 12:48 Nasal Cannula 2 03/07/23 12:18 Nasal Cannula 2 03/07/23 11:55 Oxymask 2 03/07/23 11:45 Oxymask 2 03/07/23 11:35 Oxymask 2 03/07/23 11:15 Oxymask 6 03/07/23 11:25 Oxymask 4 03/07/23 11:05 Oxymask 6
[2023-03-07] MEDS: HEPARIN SOD 5,000 UNIT/0.5 ML VIAL SQ SCH (21:39)
[2023-03-07] MEDS: MELATONIN 3 MG TAB PO PRN (23:46)
[2023-03-08] MEDS ORDERED: HYDROmorphone INJ 1 MG/ML SYRINGE IV STA (00:31)
[2023-03-08] MEDS ORDERED: HYDROmorphone INJ 0.5 MG/0.5 ML SYR IV PRN (00:31)
[2023-03-08] MEDS: HYDROmorphone INJ 1 MG/ML SYRINGE IV PRN (05:04)
[2023-03-08] MEDS: HEPARIN SOD 5,000 UNIT/0.5 ML VIAL SQ SCH ×3 (05:05→21:01)
[2023-03-08 07:20] LABS: Basophils # (auto) 0.04 K/uL (0-0.2); Basophils % (auto) 0.4 %; Eosinophils # (auto) 0.02 K/uL (0-0.50); Eosinophils % (auto) 0.2 %; Hematocrit (blood only) 32.3 % (37.0-47.0); Hemoglobin 9.8 g/dl (12.0-16.0); Immature Granulocytes # (auto) 0.07 K/uL (0.01-0.20); Immature Granulocytes % (auto) 0.6 %; Lymphocytes # (auto) 0.64 K/uL (1.2-3.4); Lymphocytes % (auto) 5.8 %; Mean Corpuscular Hemoglobin 22.8 pg (25.0-34.0); Mean Corpuscular Hgb Conc 30.3 g/dL (32.0-36.0); Mean Corpuscular Volume 75.1 fL (80.0-100.0); Mean Platelet Volume 9.9 fL (9.4-12.4); Monocytes # (auto) 0.74 K/uL (0.11-0.59); Monocytes % (auto) 6.8 %; Neutrophils # (auto) 9.44 K/uL (1.40-6.50); Neutrophils % (auto) 86.2 %; Platelet Count 291 K/uL (130-400); RDW Coefficient of Variation 16.6 % (11.5-14.5); RDW Standard Deviation 44.6 fL (36.4-46.3); White Blood Count 10.95 K/ul (4.8-10.8)
[2023-03-08] MEDS: oxyCODONE/ACETAMINOPHEN 5mg/325mg TAB PO PRN ×3 (07:29→21:12)
[2023-03-08 07:37] LABS: BUN Creatinine Ratio 10.9 (10-20); Calcium 9.1 mg/dl (8.6-10.3); Creatinine Clr Calc Pharmacy 55.6 ml/min; Est GFR (African American) 44.2 ml/min; Est GFR (Non-African American) 38.1 ml/min; Potassium 4.6 mmol/L (3.5-5.1)
[2023-03-08] MEDS: INSULIN ASPART PER UNIT CHARGE SC SCH ×4 (08:53→21:01)
--- NOTE | 2023-03-08 09:56 | Gynecologic Progress Note ---
Date of Service March 08, 2023 Assessment & Plan (1) Left ovarian cyst: Plan: pathology pending stable for d/c from [employer] Admission and Anticipated Discharge Date Admission Date: March 08, 2023 Subjective some pain noted 01/27 Physical Exam Constitutional: WD/WN, vitals as above Gastrointestinal (Abdomen): Inspection/Auscultation: abdomen normal to inspection abdomen soft and non-tender. incisions c/d/i Musculoskeletal: Extremities: extremities normal to inspection no edema in legs or tenderness Skin: no rashes, warm and dry Neurologic: patellar DTR's 2+ bilat, sensation intact Psychiatric: A+Ox3, euthymic affect Results & Data Vital Signs (Past 12 Hours) Vital Signs Temp Pulse Pulse Resp BP BP Pulse Ox 03/08/23 07:42 03/08/23 07:31 36.7 C 63 18 116/73 92 03/08/23 06:00 68 03/08/23 03:38 36.7 C 64 16 111/73 97 03/07/23 22:06 65 03/07/23 22:05 37 C 66 18 155/80 H 97 O2 Del Method O2 Flow Rate 03/08/23 07:42 Nasal Cannula 1 03/08/23 07:31 Nasal Cannula 1 03/08/23 06:00 03/08/23 03:38 Nasal Cannula 1 03/07/23 22:06 03/07/23 22:05 Nasal Cannula 2 Laboratory Results 03/05/23 03/05/23 03/05/23 18:07 18:07 18:07 WBC 7.10 RBC 5.14 Hgb 11.8 L Hct 39.2 MCV 76.3 L MCH 23.0 L MCHC 30.1 L RDW Std Deviation 44.2 RDW Coeff of Rebecca 16.3 H Plt Count 384 MPV 9.4 Immature Gran % (Auto) 0.3 Neut % (Auto) 68.0 Lymph % (Auto) 21.7 [place] % (Auto) 7.0 Eos % (Auto) 2.3 Baso % (Auto) 0.7 Neut # (Auto) 4.83 Lymph # (Auto) 1.54 [place] # (Auto) 0.50 Eos # (Auto) 0.16 Baso # (Auto) 0.05 Immature Gran # (Auto) 0.02 APTT PTT Ratio Sodium 141 Potassium 4.0 Chloride 108 H Carbon Dioxide 25 Anion Gap 8 BUN 14 Creatinine 1.25 H Est Cr Clr Drug Dosing 65.3 Est GFR ( Amer) 53.8 Est GFR (Non-Af Amer) 46.4 BUN/Creatinine Ratio 11.2 Glucose 104 H POC Glucose Calcium 8.4 L Magnesium 2.0 Total Bilirubin 0.4 AST 17 ALT 11 Alkaline Phosphatase 118 H Troponin I High Sens 3.4 Total Protein 7.1 Albumin 4.1 Globulin 3.0 Albumin/Globulin Ratio 1.4 Lipase 29 Carcinoembryonic Ag HCG, Qual Positive HCG, Quant Urine Color Urine Appearance Urine pH Ur Specific [place] Urine Protein Urine Glucose (UA) Urine Ketones Urine Blood Urine Nitrite Urine Bilirubin Urine Urobilinogen Ur Leukocyte Esterase Urine WBC (Auto) Urine RBC (Auto) U Hyaline Cast (Auto) U Epithel Cells (Auto) Urine Bacteria (Auto) SARS-CoV-2, RNA, NAAT 03/05/23 03/05/23 03/05/23 18:07 19:55 19:57 WBC RBC Hgb Hct MCV MCH MCHC RDW Std Deviation RDW Coeff of Rebecca Plt Count MPV Immature Gran % (Auto) Neut % (Auto) Lymph % (Auto) [place] % (Auto) Eos % (Auto) Baso % (Auto) Neut # (Auto) Lymph # (Auto) [place] # (Auto) Eos # (Auto) Baso # (Auto) Immature Gran # (Auto) APTT 25.3 PTT Ratio 0.9 Sodium Potassium Chloride Carbon Dioxide Anion Gap BUN Creatinine Est Cr Clr Drug Dosing Est GFR ( Amer) Est GFR (Non-Af Amer) BUN/Creatinine Ratio Glucose POC Glucose Calcium Magnesium Total Bilirubin AST ALT Alkaline Phosphatase Troponin I High Sens Total Protein Albumin Globulin Albumin/Globulin Ratio Lipase Carcinoembryonic Ag HCG, Qual HCG, Quant 16 Urine Color Dark Yellow Urine Appearance Cloudy A Urine pH 5.5 Ur Specific [place] 1.022 Urine Protein Trace H Urine Glucose (UA) Negative Urine Ketones Trace H Urine Blood Trace H Urine Nitrite Negative Urine Bilirubin Negative Urine Urobilinogen Negative Ur Leukocyte Esterase Trace H Urine WBC (Auto) 5-10 H Urine RBC (Auto) 10-30 H U Hyaline Cast (Auto) 10-30 H U Epithel Cells (Auto) >30 H Urine Bacteria (Auto) Negative SARS-CoV-2, RNA, NAAT 03/05/23 03/06/23 03/06/23 21:18 00:34 05:13 WBC RBC Hgb Hct MCV MCH MCHC RDW Std Deviation RDW Coeff of Rebecca Plt Count MPV Immature Gran % (Auto) Neut % (Auto) Lymph % (Auto) [place] % (Auto) Eos % (Auto) Baso % (Auto) Neut # (Auto) Lymph # (Auto) [place] # (Auto) Eos # (Auto) Baso # (Auto) Immature Gran # (Auto) APTT PTT Ratio Sodium Potassium Chloride Carbon Dioxide Anion Gap BUN Creatinine Est Cr Clr Drug Dosing Est GFR ( Amer) Est GFR (Non-Af Amer) BUN/Creatinine Ratio Glucose POC Glucose 104 H 101 H Calcium Magnesium Total Bilirubin AST ALT Alkaline Phosphatase Troponin I High Sens Total Protein Albumin Globulin Albumin/Globulin Ratio Lipase Carcinoembryonic Ag HCG, Qual HCG, Quant Urine Color Urine Appearance Urine pH Ur Specific [place] Urine Protein Urine Glucose (UA) Urine Ketones Urine Blood Urine Nitrite Urine Bilirubin Urine Urobilinogen Ur Leukocyte Esterase Urine WBC (Auto) Urine RBC (Auto) U Hyaline Cast (Auto) U Epithel Cells (Auto) Urine Bacteria (Auto) SARS-CoV-2, RNA, NAAT NEGATIVE 03/06/23 03/06/23 03/06/23 05:46 05:46 11:24 WBC 5.94 RBC 4.42 Hgb 10.1 L Hct 33.2 L MCV 75.1 L MCH 22.9 L MCHC 30.4 L RDW Std Deviation 44.4 RDW Coeff of Rebecca 16.4 H Plt Count 306 MPV 9.5 Immature Gran % (Auto) 0.3 Neut % (Auto) 60.1 Lymph % (Auto) 26.9 [place] % (Auto) 9.3 Eos % (Auto) 2.7 Baso % (Auto) 0.7 Neut # (Auto) 3.57 Lymph # (Auto) 1.60 [place] # (Auto) 0.55 Eos # (Auto) 0.16 Baso # (Auto) 0.04 Immature Gran # (Auto) 0.02 APTT PTT Ratio Sodium 141 Potassium 3.8 Chloride 109 H Carbon Dioxide 27 Anion Gap 5 BUN 16 Creatinine 1.33 H Est Cr Clr Drug Dosing 61.4 Est GFR ( Amer) 49.9 Est GFR (Non-Af Amer) 43.0 BUN/Creatinine Ratio 12.0 Glucose 98 POC Glucose 94 Calcium 8.4 L Magnesium Total Bilirubin 0.5 AST 11 L ALT 9 Alkaline Phosphatase 98 Troponin I High Sens Total Protein 6.2 Albumin 3.5 Globulin 2.7 Albumin/Globulin Ratio 1.3 Lipase Carcinoembryonic Ag HCG, Qual HCG, Quant Urine Color Urine Appearance Urine pH Ur Specific [place] Urine Protein Urine Glucose (UA) Urine Ketones Urine Blood Urine Nitrite Urine Bilirubin Urine Urobilinogen Ur Leukocyte Esterase Urine WBC (Auto) Urine RBC (Auto) U Hyaline Cast (Auto) U Epithel Cells (Auto) Urine Bacteria (Auto) SARS-CoV-2, RNA, NAAT 03/06/23 03/06/23 03/06/23 16:23 18:19 20:08 WBC RBC Hgb Hct MCV MCH MCHC RDW Std Deviation RDW Coeff of Rebecca Plt Count MPV Immature Gran % (Auto) Neut % (Auto) Lymph % (Auto) [place] % (Auto) Eos % (Auto) Baso % (Auto) Neut # (Auto) Lymph # (Auto) [place] # (Auto) Eos # (Auto) Baso # (Auto) Immature Gran # (Auto) APTT PTT Ratio Sodium Potassium Chloride Carbon Dioxide Anion Gap BUN Creatinine Est Cr Clr Drug Dosing Est GFR ( Amer) Est GFR (Non-Af Amer) BUN/Creatinine Ratio Glucose POC Glucose 94 93 Calcium Magnesium Total Bilirubin AST ALT Alkaline Phosphatase Troponin I High Sens Total Protein Albumin Globulin Albumin/Globulin Ratio Lipase Carcinoembryonic Ag 1.3 HCG, Qual HCG, Quant Urine Color Urine Appearance Urine pH Ur Specific [place] Urine Protein Urine Glucose (UA) Urine Ketones Urine Blood Urine Nitrite Urine Bilirubin Urine Urobilinogen Ur Leukocyte Esterase Urine WBC (Auto) Urine RBC (Auto) U Hyaline Cast (Auto) U Epithel Cells (Auto) Urine Bacteria (Auto) SARS-CoV-2, RNA, NAAT 03/07/23 03/07/23 03/07/23 05:35 07:45 07:45 WBC 4.94 RBC 4.29 Hgb 9.9 L Hct 32.3 L MCV 75.3 L MCH 23.1 L MCHC 30.7 L RDW Std Deviation 44.5 RDW Coeff of Rebecca 16.3 H Plt Count 279 MPV 9.7 Immature Gran % (Auto) 0.2 Neut % (Auto) 67.0 Lymph % (Auto) 19.2 [place] % (Auto) 8.5 Eos % (Auto) 4.5 Baso % (Auto) 0.6 Neut # (Auto) 3.31 Lymph # (Auto) 0.95 L [place] # (Auto) 0.42 Eos # (Auto) 0.22 Baso # (Auto) 0.03 Immature Gran # (Auto) 0.01 APTT PTT Ratio Sodium 141 Potassium 4.0 Chloride 108 H Carbon Dioxide 28 Anion Gap 5 BUN 13 Creatinine 1.17 Est Cr Clr Drug Dosing 69.8 Est GFR ( Amer) 58.2 Est GFR (Non-Af Amer) 50.3 BUN/Creatinine Ratio 11.1 Glucose 98 POC Glucose 103 H Calcium 8.7 Magnesium Total Bilirubin AST ALT Alkaline Phosphatase Troponin I High Sens Total Protein Albumin Globulin Albumin/Globulin Ratio Lipase Carcinoembryonic Ag HCG, Qual HCG, Quant Urine Color Urine Appearance Urine pH Ur Specific [place] Urine Protein Urine Glucose (UA) Urine Ketones Urine Blood Urine Nitrite Urine Bilirubin Urine Urobilinogen Ur Leukocyte Esterase Urine WBC (Auto) Urine RBC (Auto) U Hyaline Cast (Auto) U Epithel Cells (Auto) Urine Bacteria (Auto) SARS-CoV-2, RNA, NAAT 03/07/23 03/07/23 03/07/23 11:11 16:26 20:19 WBC RBC Hgb Hct MCV MCH MCHC RDW Std Deviation RDW Coeff of Rebecca Plt Count MPV Immature Gran % (Auto) Neut % (Auto) Lymph % (Auto) [place] % (Auto) Eos % (Auto) Baso % (Auto) Neut # (Auto) Lymph # (Auto) [place] # (Auto) Eos # (Auto) Baso # (Auto) Immature Gran # (Auto) APTT PTT Ratio Sodium Potassium Chloride Carbon Dioxide Anion Gap BUN Creatinine Est Cr Clr Drug Dosing Est GFR ( Amer) Est GFR (Non-Af Amer) BUN/Creatinine Ratio Glucose POC Glucose 156 H 141 H 137 H Calcium Magnesium Total Bilirubin AST ALT Alkaline Phosphatase Troponin I High Sens Total Protein Albumin Globulin Albumin/Globulin Ratio Lipase Carcinoembryonic Ag HCG, Qual HCG, Quant Urine Color Urine Appearance Urine pH Ur Specific [place] Urine Protein Urine Glucose (UA) Urine Ketones Urine Blood Urine Nitrite Urine Bilirubin Urine Urobilinogen Ur Leukocyte Esterase Urine WBC (Auto) Urine RBC (Auto) U Hyaline Cast (Auto) U Epithel Cells (Auto) Urine Bacteria (Auto) SARS-CoV-2, RNA, NAAT 03/08/23 03/08/23 03/08/23 06:45 06:45 07:39 WBC 10.95 H RBC 4.30 Hgb 9.8 L Hct 32.3 L MCV 75.1 L MCH 22.8 L MCHC 30.3 L RDW Std Deviation 44.6 RDW Coeff of Rebecca 16.6 H Plt Count 291 MPV 9.9 Immature Gran % (Auto) 0.6 Neut % (Auto) 86.2 Lymph % (Auto) 5.8 [place] % (Auto) 6.8 Eos % (Auto) 0.2 Baso % (Auto) 0.4 Neut # (Auto) 9.44 H Lymph # (Auto) 0.64 L [place] # (Auto) 0.74 H Eos # (Auto) 0.02 Baso # (Auto) 0.04 Immature Gran # (Auto) 0.07 APTT PTT Ratio Sodium 137 Potassium 4.6 Chloride 104 Carbon Dioxide 28 Anion Gap 5 BUN 16 Creatinine 1.47 H D Est Cr Clr Drug Dosing 55.6 Est GFR ( Amer) 44.2 Est GFR (Non-Af Amer) 38.1 BUN/Creatinine Ratio 10.9 Glucose 118 H POC Glucose 123 H Calcium 9.1 Magnesium Total Bilirubin AST ALT Alkaline Phosphatase Troponin I High Sens Total Protein Albumin Globulin Albumin/Globulin Ratio Lipase Carcinoembryonic Ag HCG, Qual HCG, Quant Urine Color Urine Appearance Urine pH Ur Specific [place] Urine Protein Urine Glucose (UA) Urine Ketones Urine Blood Urine Nitrite Urine Bilirubin Urine Urobilinogen Ur Leukocyte Esterase Urine WBC (Auto) Urine RBC (Auto) U Hyaline Cast (Auto) U Epithel Cells (Auto) Urine Bacteria (Auto) SARS-CoV-2, RNA, NAAT
--- NOTE | 2023-03-08 10:30 | Surgery Progress Note ---
Date of Service March 08, 2023 Assessment & Plan (1) Cholelithiasis: Plan POD # 1 s/p laparoscopic cholecystectomy and left salpingo-oophorectomy for large ovarian cyst -avss - postop pain controlled - no n,v - slight bump in creatinine to 1.47 today Plan: Pain management as needed Incentive spirometry ordered OOB to chair highly advised today Lee management per medicine given slight bump in creatinine advance diet to heart heathy for lunch SCDs and Heparin for DVT prophylaxis repeat am labs including liver profile and creatinine continue medical management Discussed with Dr. Pruett who agrees with above. Admission and Anticipated Discharge Date Admission Date: March 08, 2023 Subjective having RUQ and right shoulder pain, controlled with pain medication tolerated clear liquids no n,v no chest pain or shortness of breath no flatus yet urinating via lee catheter has not been out of bed yet Physical Exam Constitutional: WD/WN, vitals as above + obese, cooperative and comfortable; no acute distress and not ill appearing Respiratory: normal respiratory effort; no respiratory distress, no labored breathing and no retractions oxygen via nasal cannula Gastrointestinal (Abdomen): Inspection/Auscultation: abdomen normal to inspection and + abdominal surgical incision (clean/dry/intact ); abdomen not distended Percussion/Palpation: + abdomen tender and abdomen soft; no guarding, abdomen not rigid and abdomen not firm Laparoscopic incisions x 4: c/d/i with dermabond Umbilical incision with shy and some bloody drainage, tender to palpation Skin: no rashes, warm and dry Psychiatric: A+Ox3, euthymic affect Results & Data Vital Signs (Past 12 Hours) Vital Signs Temp Pulse Pulse Resp BP BP Pulse Ox 03/08/23 07:42 03/08/23 07:31 36.7 C 63 18 116/73 92 03/08/23 06:00 68 03/08/23 03:38 36.7 C 64 16 111/73 97 O2 Del Method O2 Flow Rate 03/08/23 07:42 Nasal Cannula 1 03/08/23 07:31 Nasal Cannula 1 03/08/23 06:00 03/08/23 03:38 Nasal Cannula 1 Laboratory Results 03/08/23 03/08/23 03/08/23 Range/Units 07:39 06:45 06:45 WBC 10.95 H (4.8-10.8) K/ul RBC 4.30 (4.20-5.40) M/uL Hgb 9.8 L (12.0-16.0) g/dl Hct 32.3 L (37.0-47.0) % MCV 75.1 L (80.0-100.0) fL MCH 22.8 L (25.0-34.0) pg MCHC 30.3 L (32.0-36.0) g/dL RDW Std Deviation 44.6 (36.4-46.3) fL RDW Coeff of Rebecca 16.6 H (11.5-14.5) % Plt Count 291 (130-400) K/uL MPV 9.9 (9.4-12.4) fL Immature Gran % (Auto) 0.6 % Neut % (Auto) 86.2 % Lymph % (Auto) 5.8 % [place] % (Auto) 6.8 % Eos % (Auto) 0.2 % Baso % (Auto) 0.4 % Neut # (Auto) 9.44 H (1.40-6.50) K/uL Lymph # (Auto) 0.64 L (1.2-3.4) K/uL [place] # (Auto) 0.74 H (0.11-0.59) K/uL Eos # (Auto) 0.02 (0-0.50) K/uL Baso # (Auto) 0.04 (0-0.2) K/uL Immature Gran # (Auto) 0.07 (0.01-0.20) K/uL Sodium 137 (136-145) mmol/L Potassium 4.6 (3.5-5.1) mmol/L Chloride 104 (98-107) mmol/L Carbon Dioxide 28 (21-32) mmol/L Anion Gap 5 (3-11) BUN 16 (6-23) mg/dl Creatinine 1.47 H D (0.6-1.2) mg/dl Est Cr Clr Drug Dosing 55.6 ml/min Est GFR ( Amer) 44.2 ml/min Est GFR (Non-Af Amer) 38.1 ml/min BUN/Creatinine Ratio 10.9 (10-20) Glucose 118 H (70-99(Fasting)) mg/dl POC Glucose 123 H (70-99) mg/dl Calcium 9.1 (8.6-10.3) mg/dl 03/07/23 03/07/23 03/07/23 Range/Units 20:19 16:26 11:11 WBC (4.8-10.8) K/ul RBC (4.20-5.40) M/uL Hgb (12.0-16.0) g/dl Hct (37.0-47.0) % MCV (80.0-100.0) fL MCH (25.0-34.0) pg MCHC (32.0-36.0) g/dL RDW Std Deviation (36.4-46.3) fL RDW Coeff of Rebecca (11.5-14.5) % Plt Count (130-400) K/uL MPV (9.4-12.4) fL Immature Gran % (Auto) % Neut % (Auto) % Lymph % (Auto) % [place] % (Auto) % Eos % (Auto) % Baso % (Auto) % Neut # (Auto) (1.40-6.50) K/uL Lymph # (Auto) (1.2-3.4) K/uL [place] # (Auto) (0.11-0.59) K/uL Eos # (Auto) (0-0.50) K/uL Baso # (Auto) (0-0.2) K/uL Immature Gran # (Auto) (0.01-0.20) K/uL Sodium (136-145) mmol/L Potassium (3.5-5.1) mmol/L Chloride (98-107) mmol/L Carbon Dioxide (21-32) mmol/L Anion Gap (3-11) BUN (6-23) mg/dl Creatinine (0.6-1.2) mg/dl Est Cr Clr Drug Dosing ml/min Est GFR ( Amer) ml/min Est GFR (Non-Af Amer) ml/min BUN/Creatinine Ratio (10-20) Glucose (70-99(Fasting)) mg/dl POC Glucose 137 H 141 H 156 H (70-99) mg/dl Calcium (8.6-10.3) mg/dl
[2023-03-08] MEDS ORDERED: SODIUM CHLORIDE 0.9% 1000ML 1,000 ML IV ONE (11:17)
[2023-03-08] MEDS: DOCUSATE SODIUM 100 MG CAP PO SCH ×2 (11:56→20:57)
--- NOTE | 2023-03-08 15:36 | Hospitalist Progress Note ---
Date of Service March 08, 2023 Assessment & Plan (1) Biliary colic: (2) Left ovarian cyst: (3) Elevated serum hCG: (4) Cholelithiasis: (5) HTN (hypertension): (6) MDD (major depressive disorder): (7) KATHARINE (generalized anxiety disorder): Plan Patient is a 62 yr female with RUQ pain/biliary colic and left adnexal lesion, positive test and elevated hcg who is s/p cholecystectomy and L salpingo-oopherectomy. Cholelithiasis/biliary colic S/P laparoscopic cholecystectomy by Dr. Greenberg on 03/07/2023 --CT ABD:Cholelithiasis. Nonobstructing bilateral renal calculi, measuring up to 9 mm in the RIGHT lower pole. Mild renal atrophy. No hydronephrosis. LEFT adnexal/ovarian cyst measures 5.0 x 4.9 cm. Correlate with concomitant pelvic ultrasound. Status post gastric bypass. No small bowel obstruction. Diverticulosis, without acute diverticulitis. No small bowel obstruction. No free intraperitoneal air. --Renal USD:No stones. No solid mass. No hydronephrosis. 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 Continue eye patch Driving not recommended until cleared by ophthalmology Will likely benefit from evaluation of ophthalmology as outpatient Mood/Insomnia on Seroquel and Lexapro, melatonin HLD on statin Morbid Obesity BMI 46 DVT Px: Heparin SQ CODE STATUS: Full code Admission and Anticipated Discharge Date Admission Date: March 08, 2023 Subjective Patient is seen and examined at bedside Denies any significant pain of the abdomen at surgical site Tolerating current diet Denies any chest pain, dyspnea, dizziness, nausea, vomiting No BM today Reports intermittent double vision Review of Systems Review of Systems: All systems reviewed & are unremarkable except as noted in Subjective Physical Exam Physical Exam: Physical Exam: Vitals signs as noted above General Appearance:Morbidly Obese, no apparent distress Head: normocephalic, Atraumatic Eyes: normal inspection, EOMI, + strabismus Neck: supple, Trachea midline Respiratory/Chest: Normal breath sounds, CTA, No accessory muscle use Cardiovascular: S1, S2, No murmur Abdomen/GI:Soft, Non tender, Bowel sounds present, + surgical site in dressing Extremities/Musculoskeletal:normal inspection, no edema Neurologic/Psych:AAOX3, grossly no focal neurological deficits Skin: normal color, warm Results & Data Results & Data Vital Signs (Past 12 Hours) Vital Signs Temp Pulse Pulse Resp BP BP Pulse Ox 03/08/23 15:24 36.3 C L 57 L 18 112/68 95 03/08/23 11:43 36.9 C 56 L 18 104/68 95 03/08/23 07:42 03/08/23 07:31 36.7 C 63 18 116/73 92 03/08/23 06:00 68 03/08/23 03:38 36.7 C 64 16 111/73 97 O2 Del Method O2 Flow Rate 03/08/23 15:24 Nasal Cannula 1 03/08/23 11:43 Nasal Cannula 1 03/08/23 07:42 Nasal Cannula 1 03/08/23 07:31 Nasal Cannula 1 03/08/23 06:00 03/08/23 03:38 Nasal Cannula 1 Laboratory Results Short CBC 03/08/23 Range/Units 06:45 WBC 10.95 H (4.8-10.8) K/ul Hgb 9.8 L (12.0-16.0) g/dl Hct 32.3 L (37.0-47.0) % Plt Count 291 (130-400) K/uL BMP 03/08/23 06:45 Sodium 137 Potassium 4.6 Chloride 104 Carbon Dioxide 28 BUN 16 Creatinine 1.47 H D Glucose 118 H Calcium 9.1
[2023-03-08] MEDS: ESCITALOPRAM OXALATE 20 MG TAB PO SCH (20:56)
[2023-03-08] MEDS: VERAPAMIL HCL 120 MG TABCR PO SCH (20:56)
[2023-03-08] MEDS: QUEtiapine FUMARATE 200 MG TAB PO SCH (20:56)
[2023-03-08] MEDS: ATORVASTATIN 10 MG TAB PO SCH (20:57)
[2023-03-08] MEDS: METOPROLOL SUCC 50MG EXT REL TAB PO SCH (20:57)
[2023-03-09] MEDS: HEPARIN SOD 5,000 UNIT/0.5 ML VIAL SQ SCH ×3 (05:23→20:21)
[2023-03-09] MEDS: HYDROmorphone INJ 1 MG/ML SYRINGE IV PRN ×2 (05:26→18:22)
[2023-03-09] MEDS: oxyCODONE/ACETAMINOPHEN 5mg/325mg TAB PO PRN ×2 (07:46→13:09)
[2023-03-09] MEDS: DOCUSATE SODIUM 100 MG CAP PO SCH ×2 (08:22→20:22)
[2023-03-09] MEDS: INSULIN ASPART PER UNIT CHARGE SC SCH ×4 (08:23→20:22)
[2023-03-09 09:00] LABS: Basophils # (auto) 0.03 K/uL (0-0.2); Basophils % (auto) 0.5 %; Eosinophils # (auto) 0.22 K/uL (0-0.50); Eosinophils % (auto) 3.7 %; Hematocrit (blood only) 32.2 % (37.0-47.0); Hemoglobin 9.8 g/dl (12.0-16.0); Immature Granulocytes # (auto) 0.03 K/uL (0.01-0.20); Immature Granulocytes % (auto) 0.5 %; Lymphocytes # (auto) 0.79 K/uL (1.2-3.4); Lymphocytes % (auto) 13.4 %; Mean Corpuscular Hemoglobin 23.1 pg (25.0-34.0); Mean Corpuscular Hgb Conc 30.4 g/dL (32.0-36.0); Mean Corpuscular Volume 75.8 fL (80.0-100.0); Mean Platelet Volume 10.1 fL (9.4-12.4); Monocytes % (auto) 6.8 %; Neutrophils # (auto) 4.43 K/uL (1.40-6.50); Neutrophils % (auto) 75.1 %; Platelet Count 302 K/uL (130-400); RDW Standard Deviation 45.6 fL (36.4-46.3); Red Blood Count 4.25 M/uL (4.20-5.40)
[2023-03-09 09:20] LABS: Albumin Level 3.5 gm/dl (3.4-5.0); BUN Creatinine Ratio 11.3 (10-20); Bilirubin Direct 0.3 mg/dl (0-0.2); Bilirubin,Total 0.8 mg/dl (0.2-1.0); Calcium 8.9 mg/dl (8.6-10.3); Creatinine Clr Calc Pharmacy 61.8 ml/min; Est GFR (African American) 49.9 ml/min; Potassium 3.9 mmol/L (3.5-5.1); Total Protein 6.4 gm/dl (6.0-8.3)
[2023-03-09] MEDS ORDERED: hydrOXYzine HCl 25 MG TAB PO ONE (09:22)
--- NOTE | 2023-03-09 10:31 | Surgery Progress Note ---
Date of Service March 09, 2023 Assessment & Plan (1) Cholelithiasis: (2) Left ovarian cyst: Plan POD # 2 s/p laparoscopic cholecystectomy and left salpingo-oophorectomy for large ovarian cyst - avss - postop pain controlled - no n,v - creatinine 1.33 (1.47) - Liver enzymes elevated today (normal preop) Plan: Pain management as needed Incentive spirometry ordered again, needs to work on this to get back to room air OOB to chair and ambulation highly recommended Recommend removing lee catheter continue heart heathy Diet SCDs and Heparin for DVT prophylaxis repeat am labs including liver profile and creatinine continue medical management PT/OT, case management Discussed with Dr. Pruett who agrees with above. Admission and Anticipated Discharge Date Admission Date: March 08, 2023 Subjective pain about 7/10 today when she woke up this morning controlled with Dilaudid still requiring oxygen via nasal cannula, no incentive spirometry in room OOB to chair this morning tolerating diet lee catheter still in place Physical Exam Constitutional: WD/WN, vitals as above + morbidly obese, cooperative and comfortable; no acute distress and not ill appearing Eyes: Eye patch on right eye Respiratory: normal respiratory effort; no respiratory distress, no labored breathing and no retractions oxygen via nasal cannula 2 liters Gastrointestinal (Abdomen): Inspection/Auscultation: abdomen normal to inspection, + abdominal surgical incision (see below) and + hypoactive bowel sounds; abdomen not distended and + abnormal bowel sounds Percussion/Palpation: + abdomen tender (at incision sites) and abdomen soft; no guarding, abdomen not rigid and abdomen not firm Laparoscopic incisions covered with dermabond c/d/i umbilical incision: shy intact, no drainage Skin: no rashes, warm and dry no jaundice Psychiatric: Orientation: alert and oriented x 3 Results & Data Vital Signs (Past 12 Hours) Vital Signs Temp Pulse Pulse Resp BP BP Pulse Ox 03/09/23 08:11 36.8 C 58 L 18 113/68 97 03/09/23 07:32 63 03/09/23 03:00 36.6 C 65 18 125/75 96 03/08/23 22:34 65 03/08/23 23:00 36.9 C 66 18 107/55 L 94 O2 Del Method O2 Flow Rate 03/09/23 08:11 Room Air 03/09/23 07:32 03/09/23 03:00 Nasal Cannula 2 03/08/23 22:34 03/08/23 23:00 Nasal Cannula 1 Laboratory Results 03/09/23 03/09/23 03/09/23 Range/Units 07:51 07:51 07:48 WBC 5.90 (4.8-10.8) K/ul RBC 4.25 (4.20-5.40) M/uL Hgb 9.8 L (12.0-16.0) g/dl Hct 32.2 L (37.0-47.0) % MCV 75.8 L (80.0-100.0) fL MCH 23.1 L (25.0-34.0) pg MCHC 30.4 L (32.0-36.0) g/dL RDW Std Deviation 45.6 (36.4-46.3) fL RDW Coeff of Rebecca 17.0 H (11.5-14.5) % Plt Count 302 (130-400) K/uL MPV 10.1 (9.4-12.4) fL Immature Gran % (Auto) 0.5 % Neut % (Auto) 75.1 % Lymph % (Auto) 13.4 % [place] % (Auto) 6.8 % Eos % (Auto) 3.7 % Baso % (Auto) 0.5 % Neut # (Auto) 4.43 (1.40-6.50) K/uL Lymph # (Auto) 0.79 L (1.2-3.4) K/uL [place] # (Auto) 0.40 (0.11-0.59) K/uL Eos # (Auto) 0.22 (0-0.50) K/uL Baso # (Auto) 0.03 (0-0.2) K/uL Immature Gran # (Auto) 0.03 (0.01-0.20) K/uL Sodium 137 (136-145) mmol/L Potassium 3.9 (3.5-5.1) mmol/L Chloride 105 (98-107) mmol/L Carbon Dioxide 26 (21-32) mmol/L Anion Gap 6 (3-11) BUN 15 (6-23) mg/dl Creatinine 1.33 H (0.6-1.2) mg/dl Est Cr Clr Drug Dosing 61.8 ml/min Est GFR ( Amer) 49.9 ml/min Est GFR (Non-Af Amer) 43.0 ml/min BUN/Creatinine Ratio 11.3 (10-20) Glucose 93 (70-99(Fasting)) mg/dl POC Glucose 103 H (70-99) mg/dl Calcium 8.9 (8.6-10.3) mg/dl Total Bilirubin 0.8 (0.2-1.0) mg/dl Direct Bilirubin 0.3 H (0-0.2) mg/dl AST 444 H (13-39) U/L ALT 279 H (7-52) U/L Alkaline Phosphatase 197 H (34-104) U/L Total Protein 6.4 (6.0-8.3) gm/dl Albumin 3.5 (3.4-5.0) gm/dl 03/08/23 03/08/23 03/08/23 Range/Units 20:25 16:19 11:28 WBC (4.8-10.8) K/ul RBC (4.20-5.40) M/uL Hgb (12.0-16.0) g/dl Hct (37.0-47.0) % MCV (80.0-100.0) fL MCH (25.0-34.0) pg MCHC (32.0-36.0) g/dL RDW Std Deviation (36.4-46.3) fL RDW Coeff of Rebecca (11.5-14.5) % Plt Count (130-400) K/uL MPV (9.4-12.4) fL Immature Gran % (Auto) % Neut % (Auto) % Lymph % (Auto) % [place] % (Auto) % Eos % (Auto) % Baso % (Auto) % Neut # (Auto) (1.40-6.50) K/uL Lymph # (Auto) (1.2-3.4) K/uL [place] # (Auto) (0.11-0.59) K/uL Eos # (Auto) (0-0.50) K/uL Baso # (Auto) (0-0.2) K/uL Immature Gran # (Auto) (0.01-0.20) K/uL Sodium (136-145) mmol/L Potassium (3.5-5.1) mmol/L Chloride (98-107) mmol/L Carbon Dioxide (21-32) mmol/L Anion Gap (3-11) BUN (6-23) mg/dl Creatinine (0.6-1.2) mg/dl Est Cr Clr Drug Dosing ml/min Est GFR ( Amer) ml/min Est GFR (Non-Af Amer) ml/min BUN/Creatinine Ratio (10-20) Glucose (70-99(Fasting)) mg/dl POC Glucose 100 H 110 H 92 (70-99) mg/dl Calcium (8.6-10.3) mg/dl Total Bilirubin (0.2-1.0) mg/dl Direct Bilirubin (0-0.2) mg/dl AST (13-39) U/L ALT (7-52) U/L Alkaline Phosphatase (34-104) U/L Total Protein (6.0-8.3) gm/dl Albumin (3.4-5.0) gm/dl
[2023-03-09 11:13] LABS: CA 125 13 U/mL (<35); Cancer Antigen 19-9 15 U/mL (<34)
[2023-03-09] MEDS: POLYETHYLENE (MIRALAX) 17 GM PACK PO PRN (11:55)
--- NOTE | 2023-03-09 14:15 | Gynecologic Progress Note ---
Date of Service March 09, 2023 Assessment & Plan Admission and Anticipated Discharge Date Admission Date: March 08, 2023 Subjective still not passing gas still has diffuse abdominal pain new onset of double vision since surgery Physical Exam Constitutional: WD/WN, vitals as above Gastrointestinal (Abdomen): Inspection/Auscultation: abdomen normal to inspection abdomen soft nad non-tender to touch incisions c/d/i Skin: no rashes, warm and dry Results & Data Vital Signs (Past 12 Hours) Vital Signs Temp Pulse Pulse Resp BP BP Pulse Ox 03/09/23 10:59 03/09/23 08:11 36.8 C 58 L 18 113/68 97 03/09/23 07:32 63 03/09/23 03:00 36.6 C 65 18 125/75 96 O2 Del Method O2 Flow Rate 03/09/23 10:59 Nasal Cannula 2 03/09/23 08:11 Room Air 03/09/23 07:32 03/09/23 03:00 Nasal Cannula 2 Laboratory Results 03/05/23 03/05/23 03/05/23 18:07 18:07 18:07 WBC 7.10 RBC 5.14 Hgb 11.8 L Hct 39.2 MCV 76.3 L MCH 23.0 L MCHC 30.1 L RDW Std Deviation 44.2 RDW Coeff of Rebecca 16.3 H Plt Count 384 MPV 9.4 Immature Gran % (Auto) 0.3 Neut % (Auto) 68.0 Lymph % (Auto) 21.7 [place] % (Auto) 7.0 Eos % (Auto) 2.3 Baso % (Auto) 0.7 Neut # (Auto) 4.83 Lymph # (Auto) 1.54 [place] # (Auto) 0.50 Eos # (Auto) 0.16 Baso # (Auto) 0.05 Immature Gran # (Auto) 0.02 APTT PTT Ratio Sodium 141 Potassium 4.0 Chloride 108 H Carbon Dioxide 25 Anion Gap 8 BUN 14 Creatinine 1.25 H Est Cr Clr Drug Dosing 65.3 Est GFR ( Amer) 53.8 Est GFR (Non-Af Amer) 46.4 BUN/Creatinine Ratio 11.2 Glucose 104 H POC Glucose Calcium 8.4 L Magnesium 2.0 Total Bilirubin 0.4 Direct Bilirubin AST 17 ALT 11 Alkaline Phosphatase 118 H Troponin I High Sens 3.4 Total Protein 7.1 Albumin 4.1 Globulin 3.0 Albumin/Globulin Ratio 1.4 Lipase 29 Carcinoembryonic Ag CA 19-9 Antigen CA 125 Antigen HCG, Qual Positive HCG, Quant Urine Color Urine Appearance Urine pH Ur Specific [place] Urine Protein Urine Glucose (UA) Urine Ketones Urine Blood Urine Nitrite Urine Bilirubin Urine Urobilinogen Ur Leukocyte Esterase Urine WBC (Auto) Urine RBC (Auto) U Hyaline Cast (Auto) U Epithel Cells (Auto) Urine Bacteria (Auto) SARS-CoV-2, RNA, NAAT 03/05/23 03/05/23 03/05/23 18:07 19:55 19:57 WBC RBC Hgb Hct MCV MCH MCHC RDW Std Deviation RDW Coeff of Rebecca Plt Count MPV Immature Gran % (Auto) Neut % (Auto) Lymph % (Auto) [place] % (Auto) Eos % (Auto) Baso % (Auto) Neut # (Auto) Lymph # (Auto) [place] # (Auto) Eos # (Auto) Baso # (Auto) Immature Gran # (Auto) APTT 25.3 PTT Ratio 0.9 Sodium Potassium Chloride Carbon Dioxide Anion Gap BUN Creatinine Est Cr Clr Drug Dosing Est GFR ( Amer) Est GFR (Non-Af Amer) BUN/Creatinine Ratio Glucose POC Glucose Calcium Magnesium Total Bilirubin Direct Bilirubin AST ALT Alkaline Phosphatase Troponin I High Sens Total Protein Albumin Globulin Albumin/Globulin Ratio Lipase Carcinoembryonic Ag CA 19-9 Antigen CA 125 Antigen HCG, Qual HCG, Quant 16 Urine Color Dark Yellow Urine Appearance Cloudy A Urine pH 5.5 Ur Specific [place] 1.022 Urine Protein Trace H Urine Glucose (UA) Negative Urine Ketones Trace H Urine Blood Trace H Urine Nitrite Negative Urine Bilirubin Negative Urine Urobilinogen Negative Ur Leukocyte Esterase Trace H Urine WBC (Auto) 5-10 H Urine RBC (Auto) 10-30 H U Hyaline Cast (Auto) 10-30 H U Epithel Cells (Auto) >30 H Urine Bacteria (Auto) Negative SARS-CoV-2, RNA, NAAT 03/05/23 03/06/23 03/06/23 21:18 00:34 05:13 WBC RBC Hgb Hct MCV MCH MCHC RDW Std Deviation RDW Coeff of Rebecca Plt Count MPV Immature Gran % (Auto) Neut % (Auto) Lymph % (Auto) [place] % (Auto) Eos % (Auto) Baso % (Auto) Neut # (Auto) Lymph # (Auto) [place] # (Auto) Eos # (Auto) Baso # (Auto) Immature Gran # (Auto) APTT PTT Ratio Sodium Potassium Chloride Carbon Dioxide Anion Gap BUN Creatinine Est Cr Clr Drug Dosing Est GFR ( Amer) Est GFR (Non-Af Amer) BUN/Creatinine Ratio Glucose POC Glucose 104 H 101 H Calcium Magnesium Total Bilirubin Direct Bilirubin AST ALT Alkaline Phosphatase Troponin I High Sens Total Protein Albumin Globulin Albumin/Globulin Ratio Lipase Carcinoembryonic Ag CA 19-9 Antigen CA 125 Antigen HCG, Qual HCG, Quant Urine Color Urine Appearance Urine pH Ur Specific [place] Urine Protein Urine Glucose (UA) Urine Ketones Urine Blood Urine Nitrite Urine Bilirubin Urine Urobilinogen Ur Leukocyte Esterase Urine WBC (Auto) Urine RBC (Auto) U Hyaline Cast (Auto) U Epithel Cells (Auto) Urine Bacteria (Auto) SARS-CoV-2, RNA, NAAT NEGATIVE 03/06/23 03/06/23 03/06/23 05:46 05:46 11:24 WBC 5.94 RBC 4.42 Hgb 10.1 L Hct 33.2 L MCV 75.1 L MCH 22.9 L MCHC 30.4 L RDW Std Deviation 44.4 RDW Coeff of Rebecca 16.4 H Plt Count 306 MPV 9.5 Immature Gran % (Auto) 0.3 Neut % (Auto) 60.1 Lymph % (Auto) 26.9 [place] % (Auto) 9.3 Eos % (Auto) 2.7 Baso % (Auto) 0.7 Neut # (Auto) 3.57 Lymph # (Auto) 1.60 [place] # (Auto) 0.55 Eos # (Auto) 0.16 Baso # (Auto) 0.04 Immature Gran # (Auto) 0.02 APTT PTT Ratio Sodium 141 Potassium 3.8 Chloride 109 H Carbon Dioxide 27 Anion Gap 5 BUN 16 Creatinine 1.33 H Est Cr Clr Drug Dosing 61.4 Est GFR ( Amer) 49.9 Est GFR (Non-Af Amer) 43.0 BUN/Creatinine Ratio 12.0 Glucose 98 POC Glucose 94 Calcium 8.4 L Magnesium Total Bilirubin 0.5 Direct Bilirubin AST 11 L ALT 9 Alkaline Phosphatase 98 Troponin I High Sens Total Protein 6.2 Albumin 3.5 Globulin 2.7 Albumin/Globulin Ratio 1.3 Lipase Carcinoembryonic Ag CA 19-9 Antigen CA 125 Antigen HCG, Qual HCG, Quant Urine Color Urine Appearance Urine pH Ur Specific [place] Urine Protein Urine Glucose (UA) Urine Ketones Urine Blood Urine Nitrite Urine Bilirubin Urine Urobilinogen Ur Leukocyte Esterase Urine WBC (Auto) Urine RBC (Auto) U Hyaline Cast (Auto) U Epithel Cells (Auto) Urine Bacteria (Auto) SARS-CoV-2, RNA, NAAT 03/06/23 03/06/23 03/06/23 16:23 18:19 18:19 WBC RBC Hgb Hct MCV MCH MCHC RDW Std Deviation RDW Coeff of Rebecca Plt Count MPV Immature Gran % (Auto) Neut % (Auto) Lymph % (Auto) [place] % (Auto) Eos % (Auto) Baso % (Auto) Neut # (Auto) Lymph # (Auto) [place] # (Auto) Eos # (Auto) Baso # (Auto) Immature Gran # (Auto) APTT PTT Ratio Sodium Potassium Chloride Carbon Dioxide Anion Gap BUN Creatinine Est Cr Clr Drug Dosing Est GFR ( Amer) Est GFR (Non-Af Amer) BUN/Creatinine Ratio Glucose POC Glucose 94 Calcium Magnesium Total Bilirubin Direct Bilirubin AST ALT Alkaline Phosphatase Troponin I High Sens Total Protein Albumin Globulin Albumin/Globulin Ratio Lipase Carcinoembryonic Ag 1.3 CA 19-9 Antigen 15 CA 125 Antigen 13 HCG, Qual HCG, Quant Urine Color Urine Appearance Urine pH Ur Specific [place] Urine Protein Urine Glucose (UA) Urine Ketones Urine Blood Urine Nitrite Urine Bilirubin Urine Urobilinogen Ur Leukocyte Esterase Urine WBC (Auto) Urine RBC (Auto) U Hyaline Cast (Auto) U Epithel Cells (Auto) Urine Bacteria (Auto) SARS-CoV-2, RNA, NAAT 03/06/23 03/07/23 03/07/23 20:08 05:35 07:45 WBC 4.94 RBC 4.29 Hgb 9.9 L Hct 32.3 L MCV 75.3 L MCH 23.1 L MCHC 30.7 L RDW Std Deviation 44.5 RDW Coeff of Rebecca 16.3 H Plt Count 279 MPV 9.7 Immature Gran % (Auto) 0.2 Neut % (Auto) 67.0 Lymph % (Auto) 19.2 [place] % (Auto) 8.5 Eos % (Auto) 4.5 Baso % (Auto) 0.6 Neut # (Auto) 3.31 Lymph # (Auto) 0.[address] # (Auto) 0.42 Eos # (Auto) 0.22 Baso # (Auto) 0.03 Immature Gran # (Auto) 0.01 APTT PTT Ratio Sodium Potassium Chloride Carbon Dioxide Anion Gap BUN Creatinine Est Cr Clr Drug Dosing Est GFR ( Amer) Est GFR (Non-Af Amer) BUN/Creatinine Ratio Glucose POC Glucose 93 103 H Calcium Magnesium Total Bilirubin Direct Bilirubin AST ALT Alkaline Phosphatase Troponin I High Sens Total Protein Albumin Globulin Albumin/Globulin Ratio Lipase Carcinoembryonic Ag CA 19-9 Antigen CA 125 Antigen HCG, Qual HCG, Quant Urine Color Urine Appearance Urine pH Ur Specific [place] Urine Protein Urine Glucose (UA) Urine Ketones Urine Blood Urine Nitrite Urine Bilirubin Urine Urobilinogen Ur Leukocyte Esterase Urine WBC (Auto) Urine RBC (Auto) U Hyaline Cast (Auto) U Epithel Cells (Auto) Urine Bacteria (Auto) SARS-CoV-2, RNA, NAAT 03/07/23 03/07/23 03/07/23 07:45 11:11 16:26 WBC RBC Hgb Hct MCV MCH MCHC RDW Std Deviation RDW Coeff of Rebecca Plt Count MPV Immature Gran % (Auto) Neut % (Auto) Lymph % (Auto) [place] % (Auto) Eos % (Auto) Baso % (Auto) Neut # (Auto) Lymph # (Auto) [place] # (Auto) Eos # (Auto) Baso # (Auto) Immature Gran # (Auto) APTT PTT Ratio Sodium 141 Potassium 4.0 Chloride 108 H Carbon Dioxide 28 Anion Gap 5 BUN 13 Creatinine 1.17 Est Cr Clr Drug Dosing 69.8 Est GFR ( Amer) 58.2 Est GFR (Non-Af Amer) 50.3 BUN/Creatinine Ratio 11.1 Glucose 98 POC Glucose 156 H 141 H Calcium 8.7 Magnesium Total Bilirubin Direct Bilirubin AST ALT Alkaline Phosphatase Troponin I High Sens Total Protein Albumin Globulin Albumin/Globulin Ratio Lipase Carcinoembryonic Ag CA 19-9 Antigen CA 125 Antigen HCG, Qual HCG, Quant Urine Color Urine Appearance Urine pH Ur Specific [place] Urine Protein Urine Glucose (UA) Urine Ketones Urine Blood Urine Nitrite Urine Bilirubin Urine Urobilinogen Ur Leukocyte Esterase Urine WBC (Auto) Urine RBC (Auto) U Hyaline Cast (Auto) U Epithel Cells (Auto) Urine Bacteria (Auto) SARS-CoV-2, RNA, NAAT 03/07/23 03/08/2303/08/23 20:19 06:45 06:45 WBC 10.95 H RBC 4.30 Hgb 9.8 L Hct 32.3 L MCV 75.1 L MCH 22.8 L MCHC 30.3 L RDW Std Deviation 44.6 RDW Coeff of Rebecca 16.6 H Plt Count 291 MPV 9.9 Immature Gran % (Auto) 0.6 Neut % (Auto) 86.2 Lymph % (Auto) 5.8 [place] % (Auto) 6.8 Eos % (Auto) 0.2 Baso % (Auto) 0.4 Neut # (Auto) 9.44 H Lymph # (Auto) 0.[address] # (Auto) 0.74 H Eos # (Auto) 0.02 Baso # (Auto) 0.04 Immature Gran # (Auto) 0.07 APTT PTT Ratio Sodium 137 Potassium 4.6 Chloride 104 Carbon Dioxide 28 Anion Gap 5 BUN 16 Creatinine 1.47 H D Est Cr Clr Drug Dosing 55.6 Est GFR ( Amer) 44.2 Est GFR (Non-Af Amer) 38.1 BUN/Creatinine Ratio 10.9 Glucose 118 H POC Glucose 137 H Calcium 9.1 Magnesium Total Bilirubin Direct Bilirubin AST ALT Alkaline Phosphatase Troponin I High Sens Total Protein Albumin Globulin Albumin/Globulin Ratio Lipase Carcinoembryonic Ag CA 19-9 Antigen CA 125 Antigen HCG, Qual HCG, Quant Urine Color Urine Appearance Urine pH Ur Specific [place] Urine Protein Urine Glucose (UA) Urine Ketones Urine Blood Urine Nitrite Urine Bilirubin Urine Urobilinogen Ur Leukocyte Esterase Urine WBC (Auto) Urine RBC (Auto) U Hyaline Cast (Auto) U Epithel Cells (Auto) Urine Bacteria (Auto) SARS-CoV-2, RNA, NAAT 03/08/23 03/08/23 03/08/23 07:39 11:28 16:19 WBC RBC Hgb Hct MCV MCH MCHC RDW Std Deviation RDW Coeff of Rebecca Plt Count MPV Immature Gran % (Auto) Neut % (Auto) Lymph % (Auto) [place] % (Auto) Eos % (Auto) Baso % (Auto) Neut # (Auto) Lymph # (Auto) [place] # (Auto) Eos # (Auto) Baso # (Auto) Immature Gran # (Auto) APTT PTT Ratio Sodium Potassium Chloride Carbon Dioxide Anion Gap BUN Creatinine Est Cr Clr Drug Dosing Est GFR ( Amer) Est GFR (Non-Af Amer) BUN/Creatinine Ratio Glucose POC Glucose 123 H 92 110 H Calcium Magnesium Total Bilirubin Direct Bilirubin AST ALT Alkaline Phosphatase Troponin I High Sens Total Protein Albumin Globulin Albumin/Globulin Ratio Lipase Carcinoembryonic Ag CA 19-9 Antigen CA 125 Antigen HCG, Qual HCG, Quant Urine Color Urine Appearance Urine pH Ur Specific [place] Urine Protein Urine Glucose (UA) Urine Ketones Urine Blood Urine Nitrite Urine Bilirubin Urine Urobilinogen Ur Leukocyte Esterase Urine WBC (Auto) Urine RBC (Auto) U Hyaline Cast (Auto) U Epithel Cells (Auto) Urine Bacteria (Auto) SARS-CoV-2, RNA, NAAT 03/08/23 03/09/23 03/09/23 20:25 07:48 07:51 WBC 5.90 RBC 4.25 Hgb 9.8 L Hct 32.2 L MCV 75.8 L MCH 23.1 L MCHC 30.4 L RDW Std Deviation 45.6 RDW Coeff of Rebecca 17.0 H Plt Count 302 MPV 10.1 Immature Gran % (Auto) 0.5 Neut % (Auto) 75.1 Lymph % (Auto) 13.4 [place] % (Auto) 6.8 Eos % (Auto) 3.7 Baso % (Auto) 0.5 Neut # (Auto) 4.43 Lymph # (Auto) 0.[address] # (Auto) 0.40 Eos # (Auto) 0.22 Baso # (Auto) 0.03 Immature Gran # (Auto) 0.03 APTT PTT Ratio Sodium Potassium Chloride Carbon Dioxide Anion Gap BUN Creatinine Est Cr Clr Drug Dosing Est GFR ( Amer) Est GFR (Non-Af Amer) BUN/Creatinine Ratio Glucose POC Glucose 100 H 103 H Calcium Magnesium Total Bilirubin Direct Bilirubin AST ALT Alkaline Phosphatase Troponin I High Sens Total Protein Albumin Globulin Albumin/Globulin Ratio Lipase Carcinoembryonic Ag CA 19-9 Antigen CA 125 Antigen HCG, Qual HCG, Quant Urine Color Urine Appearance Urine pH Ur Specific [place] Urine Protein Urine Glucose (UA) Urine Ketones Urine Blood Urine Nitrite Urine Bilirubin Urine Urobilinogen Ur Leukocyte Esterase Urine WBC (Auto) Urine RBC (Auto) U Hyaline Cast (Auto) U Epithel Cells (Auto) Urine Bacteria (Auto) SARS-CoV-2, RNA, NAAT 03/09/23 03/09/23 07:51 11:31 WBC RBC Hgb Hct MCV MCH MCHC RDW Std Deviation RDW Coeff of Rebecca Plt Count MPV Immature Gran % (Auto) Neut % (Auto) Lymph % (Auto) [place] % (Auto) Eos % (Auto) Baso % (Auto) Neut # (Auto) Lymph # (Auto) [place] # (Auto) Eos # (Auto) Baso # (Auto) Immature Gran # (Auto) APTT PTT Ratio Sodium 137 Potassium 3.9 Chloride 105 Carbon Dioxide 26 Anion Gap 6 BUN 15 Creatinine 1.33 H Est Cr Clr Drug Dosing 61.8 Est GFR ( Amer) 49.9 Est GFR (Non-Af Amer) 43.0 BUN/Creatinine Ratio 11.3 Glucose 93 POC Glucose 108 H Calcium 8.9 Magnesium Total Bilirubin 0.8 Direct Bilirubin 0.3 H AST 444 H ALT 279 H Alkaline Phosphatase 197 H Troponin I High Sens Total Protein 6.4 Albumin 3.5 Globulin Albumin/Globulin Ratio Lipase Carcinoembryonic Ag CA 19-9 Antigen CA 125 Antigen HCG, Qual HCG, Quant Urine Color Urine Appearance Urine pH Ur Specific [place] Urine Protein Urine Glucose (UA) Urine Ketones Urine Blood Urine Nitrite Urine Bilirubin Urine Urobilinogen Ur Leukocyte Esterase Urine WBC (Auto) Urine RBC (Auto) U Hyaline Cast (Auto) U Epithel Cells (Auto) Urine Bacteria (Auto) SARS-CoV-2, RNA, NAAT
--- NOTE | 2023-03-09 14:59 | Operative Report ---
Post Operative Report Pre & Post Diagnosis Operation Date: 03/07/23 07:30 Pre-Op Diagnosis: 1. Cholelithiasis 2. Left ovarian cyst Post-Op Diagnosis: 1. Cholelithiasis 2. Left ovarian cyst I identified the patient and participated in the time-out.: Yes Procedure Operation Date: 03/07/23 07:30 Actual Procedures p Laparoscopic Cholecystectomy(Not Applicable) - Clifton Greenberg MD s Laparoscopic Left Salpingo-oopherectomy, Pelvic Washings, and Lysis of Adhesions(Not Applicable) - Rosalinda Vázquez MD, PhD Surgeon Clifton Greenberg MD Hairspring I Inspector S Brennen WOLF, Mehreen Greenberg MD Estimated Blood Loss 40 Findings Consistent with Post-Op Diagnosis Gallstones and mild inflammation Specimens Gallbladder to pathology Left ovarian cyst Drains None Anesthesia Type General Complications None Indications This is a 62-year-old female who was admitted with abdominal pain. Work-up showed she had gallstones with likely early acute cholecystitis. She also had a left ovarian cyst. We talked in detail about laparoscopic cholecystectomy including the risks of open procedure, retained common bile duct stone, common bile duct injury, bile leak, and infection or wound problems. She understands all this and wishes to proceed. Description of Procedure The patient was taken the OR and underwent excellent general endotracheal anesthesia. Their abdomen is prepped and draped normal sterile fashion. Transverse supraumbilical incision was made and dissection was taken down to identify the anterior fascia. Two Vicryl's were placed on either side of the midline and his midline was then incised. The peritoneal cavity was entered bluntly with Chastity clamp. A 12mm Da Silva trocar was then inserted and secured. Good pneumoperitoneum was achieved to 15 mmHg pressure. Patient is placed in head up and rolled to the left. A 11mm subxiphoid and two 5mm lateral ports were placed in the normal fashion. The gallbladder was identified was acutely inflamed. An aspirator was then used to aspirate the gallbladder. This then facilitated grasping the the fundus of the gallbladder which was retracted superiorly. The neck of the gallbladder was grasped and then retracted laterally. This splayed open the triangle of Calot. Attention was then to taking down the peritoneal attachments to identify the cystic duct and cystic artery. Once these were skeletonized and a medial and lateral window was created between the gallbladder fossa and the duct, thereby ensuring the critical view. Three clips were then placed distally on cystic duct 1 proximally the cystic duct was transected. Two clips were then placed approximately cystic artery one distally, the cystic artery was transected. An electrocautery hook was then used to move the gallbladder off the gallbladder fossa. There was some bile spillage but no stones were spilled. The gallbladder was then placed in Endobag and brought out through the supraumbilical incision. The pneumoperitoneum was re-established and abdomen was irrigated out until the suction fluid was clear. Dr. Vázquez/Brennen then came in and performed left salpingo-oophorectomy see there o p note for details. I assisted in some of this procedure and had to enlarge the supraumbilical incision and fascia to facilitate removal of the large ovarian cyst. The ports were then removed and the abdomen decompressed. The fascia of the supraumbilical incision was closed with wih a running PDS suture. 0.5% Marcaine with epinephrine local was to create a local field block. Interrupted Vicryl was used to close the skin of the 11mm and 5mm ports. Steri-Strips and benzoin were used to reinforce the incisions. The skin over the supraumbilical incision was closed with shy. Sterile dressings were applied. Patient tolerated the procedure without complication and sent to the postop recovery period of observation. They will then be sent to the floor for the rest of his care. I attest to the content of the Intraoperative Record and any orders documented therein. Any exceptions are noted below.
--- NOTE | 2023-03-09 17:19 | Hospitalist Progress Note ---
Date of Service March 09, 2023 Assessment & Plan (1) Biliary colic: (2) Left ovarian cyst: (3) Elevated serum hCG: (4) Cholelithiasis: (5) HTN (hypertension): (6) MDD (major depressive disorder): (7) KATHARINE (generalized anxiety disorder): Plan Patient is a 62 yr female with RUQ pain/biliary colic and left adnexal lesion, positive test and elevated hcg who is s/p cholecystectomy and L salpingo-oopherectomy. Cholelithiasis/biliary colic S/P laparoscopic cholecystectomy by Dr. Greenberg on 03/07/2023 --CT ABD:Cholelithiasis. Nonobstructing bilateral renal calculi, measuring up to 9 mm in the RIGHT lower pole. Mild renal atrophy. No hydronephrosis. LEFT adnexal/ovarian cyst measures 5.0 x 4.9 cm. Correlate with concomitant pelvic ultrasound. Status post gastric bypass. No small bowel obstruction. Diverticulosis, without acute diverticulitis. No small bowel obstruction. No free intraperitoneal air. --Renal USD:No stones. No solid mass. No hydronephrosis. -Pain control Appreciate surgery input Bowel regimen to prevent constipation Tolerating current diet Monitor LFTs We will discontinue Edwards catheter tomorrow Hypertensive Urgency Situational secondary to pain Continue home medications Monitor BP Adnexal lesion/positive test/Elevated HCG Pelvic US- noted 5x5cm left ovarian cyst HCG level of 16 Positive test Postmenopausal for about 8 years s/p L salpingo-oophorectomy with MONITOR TECHNICIAN on 03/07 CEA 1.3 CA-125, CA-19 testing pending. 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 Extraocular movements intact on exam Continue eye patch Driving not recommended until cleared by ophthalmology Will likely benefit from evaluation of ophthalmology as outpatient Mood/Insomnia on Seroquel and Lexapro, melatonin HLD on statin Morbid Obesity BMI 46 DVT Px: Heparin SQ CODE STATUS: Full code Admission and Anticipated Discharge Date Admission Date: March 08, 2023 Subjective Patient is seen and examined at bedside No new complaints Still had no bowel movement Has double vision No significant abdominal pain Denies any chest pain, dyspnea, dizziness, nausea, vomiting Review of Systems Review of Systems: All systems reviewed & are unremarkable except as noted in Subjective Physical Exam Physical Exam: Physical Exam: Vitals signs as noted above General Appearance:Morbidly Obese, no apparent distress Head: normocephalic, Atraumatic Eyes: normal inspection, EOMI, + strabismus Neck: supple, Trachea midline Respiratory/Chest: Normal breath sounds, CTA, No accessory muscle use Cardiovascular: S1, S2, No murmur Abdomen/GI:Soft, Non tender, Bowel sounds present, + surgical site in dressing Extremities/Musculoskeletal:normal inspection, no edema Neurologic/Psych:AAOX3, grossly no focal neurological deficits Skin: normal color, warm Results & Data Results & Data Vital Signs (Past 12 Hours) Vital Signs Temp Pulse Pulse Resp BP Pulse Ox O2 Del Method 03/09/23 16:35 36.7 C 66 18 128/81 92 Nasal Cannula 03/09/23 15:42 63 03/09/23 11:55 36.8 C 68 18 114/68 97 Nasal Cannula 03/09/23 10:59 Nasal Cannula 03/09/23 08:11 36.8 C 58 L 18 113/68 97 Room Air 03/09/23 07:32 63 O2 Flow Rate 03/09/23 16:35 2 03/09/23 15:42 03/09/23 11:55 2 03/09/23 10:59 2 03/09/23 08:11 03/09/23 07:32 Laboratory Results Short CBC 03/09/23 Range/Units 07:51 WBC 5.90 (4.8-10.8) K/ul Hgb 9.8 L (12.0-16.0) g/dl Hct 32.2 L (37.0-47.0) % Plt Count 302 (130-400) K/uL BMP 03/09/23 07:51 Sodium 137 Potassium 3.9 Chloride 105 Carbon Dioxide 26 BUN 15 Creatinine 1.33 H Glucose 93 Calcium 8.9 Liver Function 03/09/23 Range/Units 07:51 Total Bilirubin 0.8 (0.2-1.0) mg/dl Direct Bilirubin 0.3 H (0-0.2) mg/dl AST 444 H (13-39) U/L ALT 279 H (7-52) U/L Alkaline Phosphatase 197 H (34-104) U/L Albumin 3.5 (3.4-5.0) gm/dl
[2023-03-09] MEDS: VERAPAMIL HCL 120 MG TABCR PO SCH (20:21)
[2023-03-09] MEDS: METOPROLOL SUCC 50MG EXT REL TAB PO SCH (20:21)
[2023-03-09] MEDS: ACETAMINOPHEN 325 MG TAB PO PRN (20:21)
[2023-03-09] MEDS: QUEtiapine FUMARATE 200 MG TAB PO SCH (20:21)
[2023-03-09] MEDS: ATORVASTATIN 10 MG TAB PO SCH (20:22)
[2023-03-09] MEDS: ESCITALOPRAM OXALATE 20 MG TAB PO SCH (20:22)
[2023-03-10] MEDS: HEPARIN SOD 5,000 UNIT/0.5 ML VIAL SQ SCH ×3 (05:17→20:13)
[2023-03-10] MEDS: oxyCODONE/ACETAMINOPHEN 5mg/325mg TAB PO PRN (05:17)
[2023-03-10] MEDS: HYDROmorphone INJ 1 MG/ML SYRINGE IV PRN (06:08)
[2023-03-10 06:38] LABS: Basophils # (auto) 0.03 K/uL (0-0.2); Basophils % (auto) 0.6 %; Eosinophils # (auto) 0.26 K/uL (0-0.50); Eosinophils % (auto) 5.6 %; Hemoglobin 8.7 g/dl (12.0-16.0); Immature Granulocytes # (auto) 0.02 K/uL (0.01-0.20); Immature Granulocytes % (auto) 0.4 %; Lymphocytes # (auto) 0.85 K/uL (1.2-3.4); Lymphocytes % (auto) 18.2 %; Mean Corpuscular Hemoglobin 23.1 pg (25.0-34.0); Mean Corpuscular Volume 77.1 fL (80.0-100.0); Mean Platelet Volume 9.7 fL (9.4-12.4); Monocytes # (auto) 0.43 K/uL (0.11-0.59); Monocytes % (auto) 9.2 %; Neutrophils # (auto) 3.08 K/uL (1.40-6.50); Platelet Count 253 K/uL (130-400); RDW Coefficient of Variation 16.5 % (11.5-14.5); RDW Standard Deviation 45.9 fL (36.4-46.3); Red Blood Count 3.76 M/uL (4.20-5.40); White Blood Count 4.67 K/ul (4.8-10.8)
[2023-03-10 06:58] LABS: Albumin Level 3.1 gm/dl (3.4-5.0); BUN Creatinine Ratio 10.9 (10-20); Bilirubin Direct 0.2 mg/dl (0-0.2); Bilirubin,Total 0.5 mg/dl (0.2-1.0); Calcium 8.6 mg/dl (8.6-10.3); Creatinine Clr Calc Pharmacy 64.1 ml/min; Est GFR (African American) 52.2 ml/min; Est GFR (Non-African American) 45.1 ml/min; Potassium 3.8 mmol/L (3.5-5.1); Total Protein 5.6 gm/dl (6.0-8.3)
--- NOTE | 2023-03-10 07:52 | XRay Report ---
XR chest 1V portable CLINICAL HISTORY: Hypoxia. COMPARISON STUDY: Chest radiograph March 05, 2023. FINDINGS: There is no pneumothorax or pleural effusion. Opacity along the left heart border likely re flects epicardial fat pad. Cardiomegaly is unchanged. There is no evidence for pulmonary edema. Linea r left basilar opacity is present. There is also mild right infrahilar opacity. IMPRESSION: Bibasilar opacities, as described above. Atelectasis is favored although an infectious process could appear similar. ACT 112: Negative or not required by law. Electronically signed by: Enrrique Howe M.D. 03/10/2023 7:50 AM
[2023-03-10] MEDS: INSULIN ASPART PER UNIT CHARGE SC SCH ×4 (08:09→20:09)
[2023-03-10] MEDS: ACETAMINOPHEN 325 MG TAB PO PRN ×3 (08:13→20:17)
[2023-03-10] MEDS: POLYETHYLENE (MIRALAX) 17 GM PACK PO PRN (08:13)
[2023-03-10] MEDS: DOCUSATE SODIUM 100 MG CAP PO SCH ×2 (08:16→20:14)
--- NOTE | 2023-03-10 10:25 | Surgery Progress Note ---
Date of Service March 10, 2023 Assessment & Plan (1) Cholelithiasis: (2) Left ovarian cyst: Plan POD # 3 s/p laparoscopic cholecystectomy and left salpingo-oophorectomy for large ovarian cyst - avss - postop pain controlled - no n,v - creatinine 1.2 (1.33) improving, good urine output - Liver enzymes improving, t.bili normal Plan: Pain management as needed Incentive spirometry given atelectasis on CXR OOB to chair and ambulation highly recommended remove lee catheter continue heart heathy Diet continue stool softener BID and Miralax prn, consider Dulcolax suppository this afternoon if not passing gas SCDs and Heparin for DVT prophylaxis repeat am labs including liver profile and creatinine continue medical management PT/OT, case management possibly home tomorrow if continues to work with PT/OT Dr. Pruett was present during my examination and agrees with above Admission and Anticipated Discharge Date Admission Date: March 08, 2023 Subjective still having pain about 9/10 this morning, RUQ with radiation to her shoulder still not passing gas tolerating diet no n,v ambulated yesterday in hallway, worked with PT/OT Physical Exam Constitutional: WD/WN, vitals as above + morbidly obese, cooperative and comfortable; no acute distress and not ill appearing Eyes: eye patch on right eye Respiratory: normal respiratory effort; no respiratory distress Gastrointestinal (Abdomen): Inspection/Auscultation: abdomen normal to inspection; abdomen not distended Percussion/Palpation: + abdomen tender (Right mid upper abdomen) and abdomen soft; no guarding and abdomen not rigid Skin: no rashes, warm and dry no jaundice Psychiatric: Orientation: alert and oriented x 3 Results & Data Vital Signs (Past 12 Hours) Vital Signs Temp Pulse Pulse Resp BP BP Pulse Ox 03/10/23 07:43 36.7 C 65 18 126/65 96 03/10/23 03:00 36.8 C 74 18 149/85 H 97 03/09/23 23:04 66 O2 Del Method O2 Flow Rate 03/10/23 07:43 Nasal Cannula 2 03/10/23 03:00 Nasal Cannula 2 03/09/23 23:04 Laboratory Results 03/10/23 03/10/23 03/10/23 Range/Units 07:31 06:07 06:07 WBC 4.67 L (4.8-10.8) K/ul RBC 3.76 L (4.20-5.40) M/uL Hgb 8.7 L (12.0-16.0) g/dl Hct 29.0 L (37.0-47.0) % MCV 77.1 L (80.0-100.0) fL MCH 23.1 L (25.0-34.0) pg MCHC 30.0 L (32.0-36.0) g/dL RDW Std Deviation 45.9 (36.4-46.3) fL RDW Coeff of Rebecca 16.5 H (11.5-14.5) % Plt Count 253 (130-400) K/uL MPV 9.7 (9.4-12.4) fL Immature Gran % (Auto) 0.4 % Neut % (Auto) 66.0 % Lymph % (Auto) 18.2 % [place] % (Auto) 9.2 % Eos % (Auto) 5.6 % Baso % (Auto) 0.6 % Neut # (Auto) 3.08 (1.40-6.50) K/uL Lymph # (Auto) 0.85 L (1.2-3.4) K/uL [place] # (Auto) 0.43 (0.11-0.59) K/uL Eos # (Auto) 0.26 (0-0.50) K/uL Baso # (Auto) 0.03 (0-0.2) K/uL Immature Gran # (Auto) 0.02 (0.01-0.20) K/uL Sodium 139 (136-145) mmol/L Potassium 3.8 (3.5-5.1) mmol/L Chloride 107 (98-107) mmol/L Carbon Dioxide 27 (21-32) mmol/L Anion Gap 5 (3-11) BUN 14 (6-23) mg/dl Creatinine 1.28 H (0.6-1.2) mg/dl Est Cr Clr Drug Dosing 64.1 ml/min Est GFR ( Amer) 52.2 ml/min Est GFR (Non-Af Amer) 45.1 ml/min BUN/Creatinine Ratio 10.9 (10-20) Glucose 87 (70-99(Fasting)) mg/dl POC Glucose 92 (70-99) mg/dl Calcium 8.6 (8.6-10.3) mg/dl Total Bilirubin 0.5 (0.2-1.0) mg/dl Direct Bilirubin 0.2 (0-0.2) mg/dl AST 217 H (13-39) U/L ALT 219 H (7-52) U/L Alkaline Phosphatase 223 H (34-104) U/L Total Protein 5.6 L (6.0-8.3) gm/dl Albumin 3.1 L (3.4-5.0) gm/dl CA 19-9 Antigen (<34) U/mL CA 125 Antigen (<35) U/mL 03/09/23 03/09/23 03/09/23 Range/Units 20:11 16:19 11:31 WBC (4.8-10.8) K/ul RBC (4.20-5.40) M/uL Hgb (12.0-16.0) g/dl Hct (37.0-47.0) % MCV (80.0-100.0) fL MCH (25.0-34.0) pg MCHC (32.0-36.0) g/dL RDW Std Deviation (36.4-46.3) fL RDW Coeff of Rebecca (11.5-14.5) % Plt Count (130-400) K/uL MPV (9.4-12.4) fL Immature Gran % (Auto) % Neut % (Auto) % Lymph % (Auto) % [place] % (Auto) % Eos % (Auto) % Baso % (Auto) % Neut # (Auto) (1.40-6.50) K/uL Lymph # (Auto) (1.2-3.4) K/uL [place] # (Auto) (0.11-0.59) K/uL Eos # (Auto) (0-0.50) K/uL Baso # (Auto) (0-0.2) K/uL Immature Gran # (Auto) (0.01-0.20) K/uL Sodium (136-145) mmol/L Potassium (3.5-5.1) mmol/L Chloride (98-107) mmol/L Carbon Dioxide (21-32) mmol/L Anion Gap (3-11) BUN (6-23) mg/dl Creatinine (0.6-1.2) mg/dl Est Cr Clr Drug Dosing ml/min Est GFR ( Amer) ml/min Est GFR (Non-Af Amer) ml/min BUN/Creatinine Ratio (10-20) Glucose (70-99(Fasting)) mg/dl POC Glucose 100 H 100 H 108 H (70-99) mg/dl Calcium (8.6-10.3) mg/dl Total Bilirubin (0.2-1.0) mg/dl Direct Bilirubin (0-0.2) mg/dl AST (13-39) U/L ALT (7-52) U/L Alkaline Phosphatase (34-104) U/L Total Protein (6.0-8.3) gm/dl Albumin (3.4-5.0) gm/dl CA 19-9 Antigen (<34) U/mL CA 125 Antigen (<35) U/mL 03/06/23 Range/Units 18:19 WBC (4.8-10.8) K/ul RBC (4.20-5.40) M/uL Hgb (12.0-16.0) g/dl Hct (37.0-47.0) % MCV (80.0-100.0) fL MCH (25.0-34.0) pg MCHC (32.0-36.0) g/dL RDW Std Deviation (36.4-46.3) fL RDW Coeff of Rebecca (11.5-14.5) % Plt Count (130-400) K/uL MPV (9.4-12.4) fL Immature Gran % (Auto) % Neut % (Auto) % Lymph % (Auto) % [place] % (Auto) % Eos % (Auto) % Baso % (Auto) % Neut # (Auto) (1.40-6.50) K/uL Lymph # (Auto) (1.2-3.4) K/uL [place] # (Auto) (0.11-0.59) K/uL Eos # (Auto) (0-0.50) K/uL Baso # (Auto) (0-0.2) K/uL Immature Gran # (Auto) (0.01-0.20) K/uL Sodium (136-145) mmol/L Potassium (3.5-5.1) mmol/L Chloride (98-107) mmol/L Carbon Dioxide (21-32) mmol/L Anion Gap (3-11) BUN (6-23) mg/dl Creatinine (0.6-1.2) mg/dl Est Cr Clr Drug Dosing ml/min Est GFR ( Amer) ml/min Est GFR (Non-Af Amer) ml/min BUN/Creatinine Ratio (10-20) Glucose (70-99(Fasting)) mg/dl POC Glucose (70-99) mg/dl Calcium (8.6-10.3) mg/dl Total Bilirubin (0.2-1.0) mg/dl Direct Bilirubin (0-0.2) mg/dl AST (13-39) U/L ALT (7-52) U/L Alkaline Phosphatase (34-104) U/L Total Protein (6.0-8.3) gm/dl Albumin (3.4-5.0) gm/dl CA 19-9 Antigen 15 (<34) U/mL CA 125 Antigen 13 (<35) U/mL
[2023-03-10] MEDS ORDERED: bisacodyL 10 MG SUPP PR PRN (10:28)
--- NOTE | 2023-03-10 15:20 | Hospitalist Progress Note ---
Date of Service March 10, 2023 Assessment & Plan (1) Biliary colic: (2) Left ovarian cyst: (3) Elevated serum hCG: (4) Cholelithiasis: (5) HTN (hypertension): (6) MDD (major depressive disorder): (7) KATHARINE (generalized anxiety disorder): Plan Patient is a 62 yr female with RUQ pain/biliary colic and left adnexal lesion, positive test and elevated hcg who is s/p cholecystectomy and L salpingo-oopherectomy. Cholelithiasis/biliary colic S/P laparoscopic cholecystectomy by Dr. Greenberg on 03/07/2023 --CT ABD:Cholelithiasis. Nonobstructing bilateral renal calculi, measuring up to 9 mm in the RIGHT lower pole. Mild renal atrophy. No hydronephrosis. LEFT adnexal/ovarian cyst measures 5.0 x 4.9 cm. Correlate with concomitant pelvic ultrasound. Status post gastric bypass. No small bowel obstruction. Diverticulosis, without acute diverticulitis. No small bowel obstruction. No free intraperitoneal air. --Renal USD:No stones. No solid mass. No hydronephrosis. -Pain control Appreciate surgery input Continue bowel regimen Advance diet as tolerated LFTs trending down Needs follow-up with surgery upon discharge Hypertensive Urgency Situational secondary to pain Continue home medications Monitor BP Ovarian serous cystadenoma S/P Surgery Adnexal lesion/positive test/Elevated HCG Pelvic US- noted 5x5cm left ovarian cyst HCG level of 16 Positive test Postmenopausal for about 8 years s/p L salpingo-oophorectomy with T[employer]ER[employer] OPERATOR on 03/07 CEA 1.3 CA-125 13 CA-19-9: 15 Pathology:consistent with Ovarian serous cystadenoma Appreciate [employer]AN [employer]NER OPERATOR input Needs follow-up with VAN OWNER OPERATOR as outpatient Hypoxia CXR:Bibasilar opacities, as described above. Atelectasis is favored although an infectious process could appear similar. Continue Incentive spirometer Weaned off of supplemental oxygen Strabismus Patient reports developing double vision after having CVA in the past -MRI Brain:No acute intracranial abnormality. Extraocular movements intact on exam Continue eye patch Driving not recommended until cleared by ophthalmology Will likely benefit from evaluation of ophthalmology as outpatient Mood/Insomnia on Seroquel and Lexapro, melatonin HLD on statin Morbid Obesity BMI 46 DVT Px: Heparin SQ CODE STATUS: Full code Disposition Plan to discharge home when stable Admission and Anticipated Discharge Date Admission Date: March 08, 2023 Subjective Patient is seen and examined at bedside Reports having abdominal pain associated with constipation No flatus today Discussed with surgery today Denies any chest pain, dyspnea, dizziness, nausea, vomiting No other complaints Review of Systems Review of Systems: All systems reviewed & are unremarkable except as noted in Subjective Physical Exam Physical Exam: Physical Exam: Vitals signs as noted above General Appearance:Morbidly Obese, no apparent distress Head: normocephalic, Atraumatic Eyes: normal inspection, EOMI, + strabismus Neck: supple, Trachea midline Respiratory/Chest: Normal breath sounds, CTA, No accessory muscle use Cardiovascular: S1, S2, No murmur Abdomen/GI:Soft, Non tender, Bowel sounds decreased, + surgical site in dressing Extremities/Musculoskeletal:normal inspection, no edema Neurologic/Psych:AAOX3, grossly no focal neurological deficits Skin: normal color, warm Results & Data Results & Data Vital Signs (Past 12 Hours) Vital Signs Temp Pulse Pulse Resp BP Pulse Ox O2 Del Method 03/10/23 11:55 36.6 C 59 L 18 102/67 92 Room Air 03/10/23 07:00 69 03/10/23 10:17 Room Air 03/10/23 07:43 36.7 C 65 18 126/65 96 Nasal Cannula O2 Flow Rate 03/10/23 11:55 03/10/23 07:00 03/10/23 10:17 03/10/23 07:43 2 Laboratory Results Short CBC 03/10/23 Range/Units 06:07 WBC 4.67 L (4.8-10.8) K/ul Hgb 8.7 L (12.0-16.0) g/dl Hct 29.0 L (37.0-47.0) % Plt Count 253 (130-400) K/uL BMP 03/10/23 06:07 Sodium 139 Potassium 3.8 Chloride 107 Carbon Dioxide 27 BUN 14 Creatinine 1.28 H Glucose 87 Calcium 8.6 Liver Function 03/10/23 Range/Units 06:07 Total Bilirubin 0.5 (0.2-1.0) mg/dl Direct Bilirubin 0.2 (0-0.2) mg/dl AST 217 H (13-39) U/L ALT 219 H (7-52) U/L Alkaline Phosphatase 223 H (34-104) U/L Albumin 3.1 L (3.4-5.0) gm/dl
[2023-03-10] MEDS: ESCITALOPRAM OXALATE 20 MG TAB PO SCH (20:13)
[2023-03-10] MEDS: VERAPAMIL HCL 120 MG TABCR PO SCH (20:13)
[2023-03-10] MEDS: ATORVASTATIN 10 MG TAB PO SCH (20:13)
[2023-03-10] MEDS: QUEtiapine FUMARATE 200 MG TAB PO SCH (20:13)
[2023-03-10] MEDS: METOPROLOL SUCC 50MG EXT REL TAB PO SCH (20:14)
[2023-03-11] MEDS: HEPARIN SOD 5,000 UNIT/0.5 ML VIAL SQ SCH ×3 (05:41→21:04)
[2023-03-11 07:12] LABS: Hematocrit (blood only) 29.9 % (37.0-47.0); Hemoglobin 9.3 g/dl (12.0-16.0)
[2023-03-11 07:26] LABS: Albumin Globulin Ratio 1.1 (0.9-2); Albumin Level 3.2 gm/dl (3.4-5.0); BUN Creatinine Ratio 11.5 (10-20); Bilirubin,Total 0.5 mg/dl (0.2-1.0); Calcium 8.8 mg/dl (8.6-10.3); Creatinine Clr Calc Pharmacy 72.9 ml/min; Est GFR (African American) 60.7 ml/min; Est GFR (Non-African American) 52.4 ml/min; Globulin 2.9 gm/dl (2.5-4.0); Potassium 3.8 mmol/L (3.5-5.1); Total Protein 6.1 gm/dl (6.0-8.3)
[2023-03-11] MEDS: INSULIN ASPART PER UNIT CHARGE SC SCH ×4 (08:16→20:44)
[2023-03-11] MEDS: ACETAMINOPHEN 325 MG TAB PO PRN (08:32)
[2023-03-11] MEDS: POLYETHYLENE (MIRALAX) 17 GM PACK PO PRN (08:32)
[2023-03-11] MEDS: DOCUSATE SODIUM 100 MG CAP PO SCH ×2 (08:32→20:04)
--- NOTE | 2023-03-11 09:36 | Surgery Progress Note ---
Date of Service March 11, 2023 Assessment & Plan (1) Cholelithiasis: (2) Left ovarian cyst: Plan POD # 4 s/p laparoscopic cholecystectomy and left salpingo-oophorectomy for large ovarian cyst - avss - postop pain somewhat controlled - no n,v - creatinine 1.1 (1.2) improving, good urine output since lee removed - Liver enzymes improving, t.bili normal - passing small amount of flatus, no bm yet Plan: Pain management as needed, added Tramadol prn Continue Incentive spirometry given atelectasis on CXR OOB to chair and ambulation highly recommended continue heart heathy Diet continue stool softener BID and Miralax prn, await KUB SCDs and Heparin for DVT prophylaxis continue medical management PT/OT, case management Discussed with Dr. Pruett who agrees with above. 03/11/2023 11:[address] Pruett I saw pt. pt feels better, no BM yet, tolerated diet, may discharge home to [place] if pt pass BM today. post-op care instruction was given, F/U Dr. Greenberg in 2 weeks, Admission and Anticipated Discharge Date Admission Date: March 08, 2023 Subjective feeling okay pain still in RUQ and up to shoulder, somewhat controlled with Tylenol trying to avoid narcotics passed small amount of gas last night no bowel movement yet no n,v tolerating diet Review of Systems Constitutional: no fever and no chills Eyes: no problem reported Ear, Nose, Mouth, Throat: no problem reported Respiratory: no cough and no dyspnea Cardiovascular: no chest pain Gastrointestinal: + abdominal pain and + nausea; no vomiting and no change in bowel habits Genitourinary: no dysuria Musculoskeletal: + back pain Integumentary: no change in skin color Neurologic: no localized weakness and no generalized weakness Psychiatric: no behavioral changes Endocrine: no fatigue Physical Exam Constitutional: WD/WN, vitals as above + morbidly obese, cooperative and comfortable; no acute distress and not ill appearing Neck: normal visual inspection and trachea midline Respiratory: normal respiratory effort; no respiratory distress Gastrointestinal (Abdomen): Inspection/Auscultation: abdomen normal to inspection, normal bowel sounds and + abdominal surgical incision (clean/dry/intact with dermabond, umbilical dressing c/d/i); abdomen not distended Percussion/Palpation: + abdomen tender (very mild at incision sites) and abdomen soft; no guarding and abdomen not rigid Skin: no rashes, warm and dry no jaundice Psychiatric: Orientation: alert and oriented x 3 Results & Data Vital Signs (Past 12 Hours) Vital Signs Temp Pulse Pulse Resp BP BP Pulse Ox 03/11/23 08:36 03/11/23 07:12 36.8 C 65 18 144/83 H 92 03/11/23 07:23 67 03/10/23 22:01 67 03/10/23 22:01 67 03/11/23 04:00 36.6 C 65 20 142/83 H 93 03/10/23 22:00 36.8 C 67 20 120/78 94 O2 Del Method 03/11/23 08:36 Room Air 03/11/23 07:12 Room Air 03/11/23 07:23 03/10/23 22:01 03/10/23 22:01 03/11/23 04:00 Room Air 03/10/23 22:00 Room Air Laboratory Results 03/11/23 03/11/23 03/11/23 Range/Units 07:42 06:28 06:28 Hgb 9.3 L (12.0-16.0) g/dl Hct 29.9 L (37.0-47.0) % Sodium 139 (136-145) mmol/L Potassium 3.8 (3.5-5.1) mmol/L Chloride 105 (98-107) mmol/L Carbon Dioxide 28 (21-32) mmol/L Anion Gap 6 (3-11) BUN 13 (6-23) mg/dl Creatinine 1.13 (0.6-1.2) mg/dl Est Cr Clr Drug Dosing 72.9 ml/min Est GFR ( Amer) 60.7 ml/min Est GFR (Non-Af Amer) 52.4 ml/min BUN/Creatinine Ratio 11.5 (10-20) Glucose 93 (70-99(Fasting)) mg/dl POC Glucose 93 (70-99) mg/dl Calcium 8.8 (8.6-10.3) mg/dl Total Bilirubin 0.5 (0.2-1.0) mg/dl AST 122 H (13-39) U/L ALT 186 H (7-52) U/L Alkaline Phosphatase 258 H (34-104) U/L Total Protein 6.1 (6.0-8.3) gm/dl Albumin 3.2 L (3.4-5.0) gm/dl Globulin 2.9 (2.5-4.0) gm/dl Albumin/Globulin Ratio 1.1 (0.9-2) 03/10/23 03/10/23 03/10/23 Range/Units 20:01 16:29 11:48 Hgb (12.0-16.0) g/dl Hct (37.0-47.0) % Sodium (136-145) mmol/L Potassium (3.5-5.1) mmol/L Chloride (98-107) mmol/L Carbon Dioxide (21-32) mmol/L Anion Gap (3-11) BUN (6-23) mg/dl Creatinine (0.6-1.2) mg/dl Est Cr Clr Drug Dosing ml/min Est GFR ( Amer) ml/min Est GFR (Non-Af Amer) ml/min BUN/Creatinine Ratio (10-20) Glucose (70-99(Fasting)) mg/dl POC Glucose 119 H 108 H 100 H (70-99) mg/dl Calcium (8.6-10.3) mg/dl Total Bilirubin (0.2-1.0) mg/dl AST (13-39) U/L ALT (7-52) U/L Alkaline Phosphatase (34-104) U/L Total Protein (6.0-8.3) gm/dl Albumin (3.4-5.0) gm/dl Globulin (2.5-4.0) gm/dl Albumin/Globulin Ratio (0.9-2)
[2023-03-11] MEDS ORDERED: traMADol HCL 50 MG TABLET PO PRN (09:37)
[2023-03-11] MEDS: SENNA 8.6 MG TAB PO SCH (11:15)
--- NOTE | 2023-03-11 11:18 | XRay Report ---
KUB HISTORY: Acute generalized abdominal pain and constipation Constipation COMPARISON: CT 03/05/2023 FINDINGS: Cholecystectomy. Nonobstructive bowel gas pattern. Surgical clips of the abdominal left upp er quadrant. Renal shadows are partially obscured by bowel gas. Bilateral renal calculi again noted m easuring up to 9 mm on the right. No ureteral calculi are seen. Mild to moderate fecal retention. Eduarda gical clips project over the abdominal lower quadrant. Pelvic basin phleboliths. Limited study second lea to patient body habitus. Mild gaseous distention of the transverse colon. No renal calculi. No u reteral calculi. No pneumoperitoneum or pneumatosis. No fracture. IMPRESSION: 1. Nonobstructive bowel gas pattern with mild gaseous distention of the transverse colon. 2. [id number] fecal retention. 3. Bilateral nephrolithiasis without ureteral calculi identified. ACT 112: Negative or not required by law. The above report was generated using voice recognition software. It may contain grammatical, syntax o r spelling errors. Electronically signed by: Ramsey Lobo M.D. 03/11/2023 11:16 AM
--- NOTE | 2023-03-11 11:24 | Neurology Consultation ---
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 Worse now in the post-op period secondary to decompensation of her exisiting deficit. No concern for new neurologic injury. Suspect full recovery back to her previous baseline. Agree with optho follow-up, she may benefit from prism lenses. No evidence of neuromuscular disorder/MG either. No further neurologic workup, please contact us with any questions. Telehealth Consultation Telehealth Information Telehealth Information: I performed this visit using a real-time telehealth connection between my location and the patients location ([facility]). After connecting through interactive tele-video, patient was identified by name and date of and/or wristband check.Patient (or authorized healthcare medical collections representative) was informed that this was a telemedicine visit and it was being conducted confidentially over secure lines. My office door was closed and no one else was present in the room with me.Patient (or authorized healthcare medical collections representative) provided consent to proceed with the visit, expressed an understanding of privacy and security of the telemedicine visit, and gave permission to have a hospital medical collections representative in the room in order to assist with the visit and to conduct portions of the visit, as needed. I informed the patient (or authorized healthcare medical collections representative) that I reviewed their record and presented the opportunity for them to ask any questions regarding the visit today. The patient agreed to participate. History of Present Illness Reason for Consultation: Double vision Requesting Physician: Dr. 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 She reports never being able to look at text straight on and having to intermittently wear an eye patch in the past. She does see ophthalmology regularly. Since the surgery her double vision has been more bothersome and more persistent than usual. Denies any other symptoms of weakness, speech change, headache, swallowing difficulty. Allergies Allergy/AdvReac Type Severity Reaction Status Date / Time potassium AdvReac Severe Cardiac Verified 02/24/23 16:33 issues fluoxetine AdvReac Intermediate Hallucinati Verified 02/24/23 16:33 ons lorazepam AdvReac Intermediate Hallucinati Verified 02/24/23 16:33 ons Home Medications Medication Instructions Recorded Confirmed Type atorvastatin 10 mg tablet 10 mg PO HS 05/09/19 03/05/23 History escitalopram oxalate 20 mg tablet 20 mg PO HS 05/09/19 03/05/23 History metoprolol succinate 50 mg 50 mg PO HS 05/09/19 03/05/23 History tablet,extended release 24 hr quetiapine 200 mg tablet 200 mg PO HS 05/09/19 03/05/23 History verapamil 120 mg 24 hr 120 mg PO HS 05/09/19 03/05/23 History capsule,extended release melatonin 10 mg tablet 10 mg PO HS PRN Sleep 08/05/22 03/05/23 History Patient History Medical History Cholelithiasis Chronic anemia CKD (chronic kidney disease), stage III Diabetes Per records Last Hgb A1C 6.4 per 10/30/20 PCP note. Diet controlled KATHARINE (generalized anxiety disorder) HTN (hypertension) Hx of supraventricular tachycardia Hyperlipidemia Kidney stones MDD (major depressive disorder) Migraine Morbid obesity Prediabetes PVC (premature ventricular contraction) Stroke Around 1989- residual mild weakness on right side. Surgical History History of arthroscopy of left shoulder History of x 2 Hx of arthroscopy of right knee Hx of dilation and curettage x 2 Hx of gastric bypass Family History Other Cancer Diabetes Dyslipidemia Heart disease Hypertension Social History Smoking Status: Never smoker Second Hand Exposure: No; Do You Dip or Chew Tobacco: No; Hx Alcohol Use: No Hx Substance Use: No Preferred Language: Gambian Communication Ability: Effective Litigation Specialist Required: No Beliefs That Will Affect Care: None Current Living Situation: Alone Current Living Situation Comment: Lives home with family Other Information That Helps Us Care for You: No Feels Safe at Home: Yes Assistive Devices: None Review of Systems +diplopia Physical Exam Neurological Examination: Mental Status: Awake and alert. Oriented to person, place, and time. Fluent. Comprehension intact. Affect appropriate. Cranial Nerves: II: Reads NIHSS cards, pupils 3/3 to 2/2, III/IV/: Dysconjugate gaze at rest, exotropia. Difficulty primarily with upgaze. Slow saccades in L eye. VII: Facial expression symmetric VIII: Hearing intact to voice IX/X: Palate elevates symmetrically Motor: Strength was symmetric and antigravity throughout. Pronator drift was absent. There were no abnormal movements. Coordination: Movements were non-ataxic Reflexes: Unable to assess over telemedicine Results & Data Vital Signs (Past 12 Hours) Vital Signs Temp Pulse Pulse Resp BP BP Pulse Ox 03/11/23 08:36 03/11/23 07:12 36.8 C 65 18 144/83 H 92 03/11/23 07:23 67 03/11/23 04:00 36.6 C 65 20 142/83 H 93 O2 Del Method 03/11/23 08:36 Room Air 03/11/23 07:12 Room Air 03/11/23 07:23 03/11/23 04:00 Room Air Laboratory Results Abnormal lab results 03/10/23 03/10/23 03/10/23 Range/Units 11:48 16:29 20:01 Hgb (12.0-16.0) g/dl Hct (37.0-47.0) % POC Glucose 100 H 108 H 119 H (70-99) mg/dl AST (13-39) U/L ALT (7-52) U/L Alkaline Phosphatase (34-104) U/L Albumin (3.4-5.0) gm/dl 03/11/23 03/11/23 Range/Units 06:28 06:28 Hgb 9.3 L (12.0-16.0) g/dl Hct 29.9 L (37.0-47.0) % POC Glucose (70-99) mg/dl AST 122 H (13-39) U/L ALT 186 H (7-52) U/L Alkaline Phosphatase 258 H (34-104) U/L Albumin 3.2 L (3.4-5.0) gm/dl Diagnostic Findings MRI brain (03/07) - Unremarkable
--- NOTE | 2023-03-11 15:28 | Hospitalist Progress Note ---
Date of Service March 11, 2023 Assessment & Plan (1) Biliary colic: (2) Left ovarian cyst: (3) Elevated serum hCG: (4) Cholelithiasis: (5) HTN (hypertension): (6) MDD (major depressive disorder): (7) KATHARINE (generalized anxiety disorder): Plan Patient is a 62 yr female with RUQ pain/biliary colic and left adnexal lesion, positive test and elevated hcg who is s/p cholecystectomy and L salpingo-oopherectomy. Cholelithiasis/biliary colic S/P laparoscopic cholecystectomy by Dr. Greenberg on 03/07/2023 --CT ABD:Cholelithiasis. Nonobstructing bilateral renal calculi, measuring up to 9 mm in the RIGHT lower pole. Mild renal atrophy. No hydronephrosis. LEFT adnexal/ovarian cyst measures 5.0 x 4.9 cm. Correlate with concomitant pelvic ultrasound. Status post gastric bypass. No small bowel obstruction. Diverticulosis, without acute diverticulitis. No small bowel obstruction. No free intraperitoneal air. --Renal USD:No stones. No solid mass. No hydronephrosis. -Pain control Appreciate surgery input LFTs trending down Needs follow-up with surgery upon discharge Plan to discharge home once cleared by surgery Constipation KUB suggestive of fecal retention Continue bowel regimen Enema as needed Encouraged to ambulate Hypertensive Urgency Situational secondary to pain Continue home medications Monitor BP Ovarian serous cystadenoma S/P Surgery Adnexal lesion/positive test/Elevated HCG Pelvic US- noted 5x5cm left ovarian cyst HCG level of 16 Positive test Postmenopausal for about 8 years s/p L salpingo-oophorectomy with [employer]MER on 03/07 CEA 1.3 CA-125 13 CA-19-9: 15 Pathology:consistent with Ovarian serous cystadenoma Appreciate MARKETING ASSISTANT input Needs follow-up with MARKETING ASSISTANT as outpatient Hypoxia CXR:Bibasilar opacities, as described above. Atelectasis is favored although an infectious process could appear similar. 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 Continue eye patch Driving not recommended until cleared by ophthalmology Appreciate neurology input Mood/Insomnia on Seroquel and Lexapro, melatonin HLD on statin Morbid Obesity BMI 46 DVT Px: Heparin SQ CODE STATUS: Full code Disposition Plan to discharge home when stable Admission and Anticipated Discharge Date Admission Date: March 08, 2023 Subjective Patient is seen and examined at bedside Denies any significant abdominal pain today + flatus, no BM today KUB suggestive fecal retention Discussed with urology today Reports persistent double vision Denies any chest pain, dyspnea, dizziness, nausea, vomiting Review of Systems Review of Systems: All systems reviewed & are unremarkable except as noted in Subjective Physical Exam Physical Exam: Physical Exam: Vitals signs as noted above General Appearance:Morbidly Obese, no apparent distress Head: normocephalic, Atraumatic Eyes: normal inspection, EOMI, + strabismus Neck: supple, Trachea midline Respiratory/Chest: Normal breath sounds, CTA, No accessory muscle use Cardiovascular: S1, S2, No murmur Abdomen/GI:Soft, Non tender, Bowel sounds presents, + surgical site in dressing Extremities/Musculoskeletal:normal inspection, no edema Neurologic/Psych:AAOX3, grossly no focal neurological deficits Skin: normal color, warm Results & Data Results & Data Vital Signs (Past 12 Hours) Vital Signs Temp Pulse Pulse Resp BP BP Pulse Ox 03/11/23 11:18 36.8 C 64 18 139/83 96 03/11/23 08:36 03/11/23 07:12 36.8 C 65 18 144/83 H 92 03/11/23 07:23 67 03/11/23 04:00 36.6 C 65 20 142/83 H 93 O2 Del Method 03/11/23 11:18 Room Air 03/11/23 08:36 Room Air 03/11/23 07:12 Room Air 03/11/23 07:23 03/11/23 04:00 Room Air Laboratory Results Short CBC 03/11/23 Range/Units 06:28 Hgb 9.3 L (12.0-16.0) g/dl Hct 29.9 L (37.0-47.0) % BMP 03/11/23 06:28 Sodium 139 Potassium 3.8 Chloride 105 Carbon Dioxide 28 BUN 13 Creatinine 1.13 Glucose 93 Calcium 8.8 Liver Function 03/11/23 Range/Units 06:28 Total Bilirubin 0.5 (0.2-1.0) mg/dl AST 122 H (13-39) U/L ALT 186 H (7-52) U/L Alkaline Phosphatase 258 H (34-104) U/L Albumin 3.2 L (3.4-5.0) gm/dl
[2023-03-11] MEDS: ATORVASTATIN 10 MG TAB PO SCH (20:04)
[2023-03-11] MEDS: VERAPAMIL HCL 120 MG TABCR PO SCH (20:05)
[2023-03-11] MEDS: METOPROLOL SUCC 50MG EXT REL TAB PO SCH (20:05)
[2023-03-11] MEDS: QUEtiapine FUMARATE 200 MG TAB PO SCH (20:05)
[2023-03-11] MEDS: ESCITALOPRAM OXALATE 20 MG TAB PO SCH (20:05)
[2023-03-12] MEDS: HEPARIN SOD 5,000 UNIT/0.5 ML VIAL SQ SCH (06:05)
[2023-03-12 06:29] LABS: Hematocrit (blood only) 29.7 % (37.0-47.0); Mean Corpuscular Hemoglobin 22.8 pg (25.0-34.0); Mean Corpuscular Hgb Conc 30.3 g/dL (32.0-36.0); Mean Corpuscular Volume 75.4 fL (80.0-100.0); Mean Platelet Volume 9.5 fL (9.4-12.4); Platelet Count 323 K/uL (130-400); RDW Coefficient of Variation 16.7 % (11.5-14.5); RDW Standard Deviation 45.1 fL (36.4-46.3); Red Blood Count 3.94 M/uL (4.20-5.40); White Blood Count 5.43 K/ul (4.8-10.8)
[2023-03-12 06:49] LABS: Albumin Globulin Ratio 1.1 (0.9-2); Albumin Level 3.2 gm/dl (3.4-5.0); BUN Creatinine Ratio 11.1 (10-20); Bilirubin,Total 0.5 mg/dl (0.2-1.0); Calcium 8.4 mg/dl (8.6-10.3); Creatinine Clr Calc Pharmacy 70.1 ml/min; Est GFR (African American) 58.2 ml/min; Est GFR (Non-African American) 50.3 ml/min; Globulin 2.9 gm/dl (2.5-4.0); Magnesium 1.9 mg/dl (1.7-2.4); Potassium 3.8 mmol/L (3.5-5.1); Total Protein 6.1 gm/dl (6.0-8.3)
--- NOTE | 2023-03-12 07:44 | Hospitalist Progress Note ---
Date of Service March 12, 2023 Assessment & Plan (1) Biliary colic: (2) Left ovarian cyst: (3) Elevated serum hCG: (4) Cholelithiasis: (5) HTN (hypertension): (6) MDD (major depressive disorder): (7) KATHARINE (generalized anxiety disorder): Plan Patient is a 62 yr female with RUQ pain/biliary colic and left adnexal lesion, positive test and elevated hcg who is s/p cholecystectomy and L salpingo-oopherectomy. Cholelithiasis/biliary colic S/P laparoscopic cholecystectomy by Dr. Greenberg on 03/07/2023 --CT ABD:Cholelithiasis. Nonobstructing bilateral renal calculi, measuring up to 9 mm in the RIGHT lower pole. Mild renal atrophy. No hydronephrosis. LEFT adnexal/ovarian cyst measures 5.0 x 4.9 cm. Correlate with concomitant pelvic ultrasound. Status post gastric bypass. No small bowel obstruction. Diverticulosis, without acute diverticulitis. No small bowel obstruction. No free intraperitoneal air. --Renal USD:No stones. No solid mass. No hydronephrosis. 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 Atelectasis is favored although an infectious process could appear similar. 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 Continue eye patch Driving not recommended until cleared by ophthalmology Appreciate neurology input Mood/Insomnia on Seroquel and Lexapro, melatonin HLD on statin Morbid Obesity BMI 46 DVT Px: Heparin SQ CODE STATUS: Full code Disposition Plan to discharge home when stable Admission and Anticipated Discharge Date Admission Date: March 08, 2023 Results & Data Results & Data Vital Signs (Past 12 Hours) Vital Signs Temp Pulse Pulse Resp BP Pulse Ox O2 Del Method 03/12/23 07:06 65 03/12/23 02:54 36.8 C 58 L 18 147/85 H 93 Room Air 03/12/23 00:25 72 03/11/23 23:00 36.8 C 67 18 141/84 H 92 Room Air 03/11/23 21:28 Room Air Laboratory Results Short CBC 03/12/23 Range/Units 06:01 WBC 5.43 (4.8-10.8) K/ul Hgb 9.0 L (12.0-16.0) g/dl Hct 29.7 L (37.0-47.0) % Plt Count 323 (130-400) K/uL BMP 03/12/23 06:01 Sodium 139 Potassium 3.8 Chloride 104 Carbon Dioxide 29 BUN 13 Creatinine 1.17 Glucose 96 Calcium 8.4 L Liver Function 03/12/23 Range/Units 06:01 Total Bilirubin 0.5 (0.2-1.0) mg/dl AST 47 H (13-39) U/L ALT 115 H (7-52) U/L Alkaline Phosphatase 217 H (34-104) U/L Albumin 3.2 L (3.4-5.0) gm/dl Medications Administered Current Inpatient Medications Acetaminophen (Acetaminophen 325 Mg Tab) 650 mg PO Q4H PRN PRN Reason: Pain or Fever Stop: 04/05/23 00:53 Last Admin: 03/11/23 08:32 Dose: 650 mg Atorvastatin Calcium (Atorvastatin 10 Mg Tab) 10 mg PO HS MADONNA Stop: 04/05/23 20:59 Last Admin: 03/11/23 20:04 Dose: 10 mg Bisacodyl (Bisacodyl 10 Mg Supp) 10 mg MD DAILY PRN PRN Reason: Constipation Stop: 04/09/23 10:27 Last Admin: 03/10/23 14:53 Dose: 10 mg Dextrose (Dextrose 50% 50 Ml Syringe) 25 - 50 ml IV UD PRN; Protocol PRN Reason: Hypoglycemia Protocol Stop: 04/05/23 00:53 Docusate Sodium (Docusate Sodium 100 Mg Cap) 100 mg PO BID MADONNA Stop: 04/07/23 11:29 Last Admin: 03/11/23 20:04 Dose: 100 mg Escitalopram Oxalate (Escitalopram Oxalate 20 Mg Tab) 20 mg PO HS [facility] Stop: 04/05/23 20:59 Last Admin: 03/11/23 20:05 Dose: 20 mg Glucagon (Glucagon For Inj 1 Mg Vial) 1 mg SQ UD PRN; Protocol PRN Reason: Hypoglycemia Protocol Stop: 04/05/23 00:53 Glucose (Glucose 10 Tab/Tube) 4 - 8 tab PO UD PRN; Protocol PRN Reason: Hypoglycemia Treatment Stop: 04/05/23 00:53 Glucose (Glucose 40% Gel 15 Gm Tube) 15 - 30 gm PO UD PRN; Protocol PRN Reason: Hypoglycemia Protocol Stop: 04/05/23 00:53 Heparin Sodium (Porcine) (Heparin Sod 5,000 Unit/0.5 Ml Vial) 5,000 units SQ Q8 MADONNA Stop: 04/06/23 21:59 Last Admin: 03/12/23 06:05 Dose: 5,000 units Hydrocortisone (Hydrocortisone 1% Crm 30 Gm Tube) 1 appln EXT TID PRN PRN Reason: Itching Stop: 04/05/23 17:25 Last Admin: 03/06/23 18:16 Dose: 1 appln Hydromorphone HCl (Hydromorphone Inj 0.5 Mg/0.5 Ml Syr) 0.5 mg IV Q3H PRN PRN Reason: Pain (1,2,3,4,5) & Pre PT Stop: 03/21/23 18:50 Hydromorphone HCl (Hydromorphone Inj 1 Mg/Ml Syringe) 1 mg IV Q3H PRN PRN Reason: Pain (6,7,8,9,10) Stop: 03/21/23 18:50 Last Admin: 03/10/23 06:08 Dose: 1 mg Hydroxyzine HCl (Hydroxyzine Hcl 25 Mg Tab) 25 mg PO HS PRN PRN Reason: Itching Stop: 04/05/23 17:52 Last Admin: 03/08/23 00:32 Dose: 25 mg Promethazine HCl 12.5 mg/ (Sodium Chloride) 50.5 mls @ 202 mls/hr IV Q6H PRN PRN Reason: Nausea And Vomiting Stop: 04/04/23 22:59 Last Infusion: 03/10/23 06:08 Dose: Infused Insulin Aspart (Insulin Aspart Per Unit Charge) 0 units SC [facility] Stop: 04/06/23 05:59 Last Admin: 03/11/23 20:44 Dose: Not Given Melatonin (Melatonin 3 Mg Tab) 9 mg PO HS PRN PRN Reason: Sleep Last Admin: 03/07/23 23:46 Dose: 9 mg Metoprolol Succinate (Metoprolol Succ 50mg Ext Rel Tab) 50 mg PO HS [facility] Stop: 04/05/23 20:59 Last Admin: 03/11/23 20:05 Dose: 50 mg Miscellaneous (Carbohydrates For Hypoglycemia ) 15 - 30 gm PO UD PRN PRN Reason: Hypoglycemia Protocol Stop: 04/05/23 00:53 Ondansetron HCl (Ondansetron Inj 2 Mg/Ml 2 Ml Vial) 4 mg IV Q4H PRN PRN Reason: Nausea And Vomiting Stop: 04/06/23 12:17 Oxycodone/Acetaminophen (Oxycodone/Acetaminophen 5mg/325mg Tab) 1 tab PO Q4H PRN PRN Reason: MODERATE Pain (4,5,6) & Pre PT Stop: 03/21/23 12:17 Last Admin: 03/08/23 17:13 Dose: 1 tab Oxycodone/Acetaminophen (Oxycodone/Acetaminophen 5mg/325mg Tab) 2 tab PO Q4H PRN PRN Reason: SEVERE Pain (7,8,9,10) Stop: 03/21/23 12:17 Last Admin: 03/10/23 05:17 Dose: 2 tab Polyethylene Glycol (Polyethylene (Miralax) 17 Gm Pack) 17 gm PO DAILY PRN PRN Reason: Constipation Stop: 04/07/23 11:14 Last Admin: 03/11/23 08:32 Dose: 17 gm Quetiapine Fumarate (Quetiapine Fumarate 200 Mg Tab) 200 mg PO [facility] Stop: 04/05/23 20:59 Last Admin: 03/11/23 20:05 Dose: 200 mg Sennosides (Senna 8.6 Mg Tab) 8.6 mg PO [facility] Stop: 04/10/23 10:39 Last Admin: 03/11/23 11:15 Dose: 8.6 mg Tramadol HCl (Tramadol Hcl 50 Mg Tablet) 50 mg PO Q4H PRN PRN Reason: Moderate Pain (Scale 4, 5, 6) Stop: 04/10/23 09:36 Last Admin: 03/11/23 14:17 Dose: 50 mg Triamcinolone Acetonide (Triamcinolone Acet 0.1% Cr 80 Gm Tube) 1 appln EXT TID PRN PRN Reason: Itching Stop: 04/05/23 17:49 Verapamil HCl (Verapamil Hcl 120 Mg Tabcr) 120 mg PO HS MADONNA Stop: 04/05/23 00:53 Last Admin: 03/11/23 20:05 Dose: 120 mg
[2023-03-12] MEDS: SENNA 8.6 MG TAB PO SCH (08:43)
[2023-03-12] MEDS: DOCUSATE SODIUM 100 MG CAP PO SCH (08:43)
[2023-03-12] MEDS: INSULIN ASPART PER UNIT CHARGE SC SCH ×2 (08:44→11:33)
--- NOTE | 2023-03-12 11:39 | Surgery Progress Note ---
Date of Service March 12, 2023 Assessment & Plan (1) Cholelithiasis: (2) Left ovarian cyst: Plan POD # 4 s/p laparoscopic cholecystectomy and left salpingo-oophorectomy for large ovarian cyst - avss - postop pain somewhat controlled - no n,v - creatinine 1.1 (1.2) improving, good urine output since lee removed - Liver enzymes improving, t.bili normal - passing small amount of flatus, no bm yet Plan: Pain management as needed, added Tramadol prn Continue Incentive spirometry given atelectasis on CXR OOB to chair and ambulation highly recommended continue heart heathy Diet continue stool softener BID and Miralax prn, await KUB SCDs and Heparin for DVT prophylaxis continue medical management PT/OT, case management Discussed with Dr. Pruett who agrees with above. 03/11/2023 11:[address] Pruett I saw pt. pt feels better, no BM yet, tolerated diet, may discharge home to [place] if pt pass BM today. post-op care instruction was given, F/U Dr. Greenberg in 2 weeks, 03/12/2023 11:[address] Pruett F/U S/P lpa yogi, POD 5 pt is doing fine, pt wants to go home today, please discharge pt today, I gave pt post-op care instruction, F/U Dr. Greenberg 2 weeks, sign off today, please call with questions, Thanks, Admission and Anticipated Discharge Date Admission Date: March 08, 2023 Subjective Patient is seen and examined at bedside Denies any significant abdominal pain today + flatus, no BM today KUB suggestive fecal retention Discussed with urology today Reports persistent double vision Denies any chest pain, dyspnea, dizziness, nausea, vomiting 03/12/2023 11:34 AM, Dr. Pruett F/U S/P lap yogi, POD 5 days, pt is doing better, no abdominal pain tolerated diet, no nausea, no vomiting, no fever, passed BM yesterday. Review of Systems Constitutional: no fever and no chills Eyes: no problem reported Ear, Nose, Mouth, Throat: no problem reported Respiratory: no cough and no dyspnea Cardiovascular: no chest pain Gastrointestinal: + abdominal pain and + nausea; no vomiting and no change in bowel habits Genitourinary: no dysuria Musculoskeletal: + back pain Integumentary: no change in skin color Neurologic: no localized weakness and no generalized weakness Psychiatric: no behavioral changes Endocrine: no fatigue Physical Exam Constitutional: WD/WN, vitals as above Neck: trachea midline, no thyromegaly Respiratory: normal respiratory effort, lungs clear to auscultation Cardiovascular: RRR, no murmur, no edema Gastrointestinal (Abdomen): soft, NT, ND, all incisions intact, no redness, BS + Musculoskeletal: no cyanosis or clubbing, extremities motor strength 5/5 Neurologic: patellar DTR's 2+ bilat, sensation intact Psychiatric: A+Ox3, euthymic affect Results & Data Vital Signs (Past 12 Hours) Vital Signs Temp Pulse Pulse Resp BP Pulse Ox O2 Del Method 03/12/23 08:15 36.8 C 63 18 140/82 95 Room Air 03/12/23 07:06 65 03/12/23 02:54 36.8 C 58 L 18 147/85 H 93 Room Air 03/12/23 00:25 72 Laboratory Results Abnormal lab results 03/11/23 03/12/23 03/12/23 Range/Units 20:02 06:01 06:01 RBC 3.94 L (4.20-5.40) M/uL Hgb 9.0 L (12.0-16.0) g/dl Hct 29.7 L (37.0-47.0) % MCV 75.4 L (80.0-100.0) fL MCH 22.8 L (25.0-34.0) pg MCHC 30.3 L (32.0-36.0) g/dL RDW Coeff of Rebecca 16.7 H (11.5-14.5) % POC Glucose 113 H (70-99) mg/dl Calcium 8.4 L (8.6-10.3) mg/dl AST 47 H (13-39) U/L ALT 115 H (7-52) U/L Alkaline Phosphatase 217 H (34-104) U/L Albumin 3.2 L (3.4-5.0) gm/dl
--- NOTE | 2023-03-12 12:55 | Discharge Summary ---
Discharge Summary Date of Service March 12, 2023 Admission HPI Per Admitting Provider History obtained from patient and records. Medical history significant for chronic diastolic heart failure (EF 60 to 65%, TTE 2021), PSVT, history traumatic hemorrhagic CVA, hypertension, hyperlipidemia, DM2 diet-controlled, CRI (baseline creatinine 1.3 ), chronic anemia (baseline hemoglobin 11 ), left ovarian cyst, history gastric bypass, hyperparathyroidism as per records, migraine, urolithiasis, cholelithiasis, anxiety/mood disorder. Last confinement February 24 to 2022 for renal colic right secondary to ureteric stone with hydronephrosis. Patient spontaneously passed stone. This morning, patient had achy right flank/right upper abdominal discomfort going to her right chest and shoulder causing shortness of breath. No fever, no chills, no hematuria. For intense stent kidney stone pain in the past. Some nausea, no emesis. No prior episodes as per patient. Usual headache symptoms. Patient consulted ER for evaluation. SBP 170s upon arrival at the ER. 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 She also had hypertensive urgency secondary to her pain. She was admitted to medicine and general surgery was consulted. Work-up revealed cholelithiasis with ongoing pain and she will underwent a laparoscopic cholecystectomy on 03/07 by . Intraoperatively she was noted to have a left ovarian cyst and omental adhesions, and underwent a laparoscopic left salpingo oophorectomy and pelvic washings with lysis of adhesion by . Diet was advanced and blood pressure returned into the normal range. Postoperative course was complicated by acute double vision. Work-up included an MRI brain with no acute intracranial abnormality. Per neurology was consulted, diplopia with disconjugate gaze was secondary to a chronic midbrain stroke which was now worse in the postop period secondary to decompensation of her existing deficit. There was no concern for new neurologic injury and it was suspected she would recover fully back to her previous baseline. Driving was not recommended until she could be seen by ophthalmology as outpatient. She also had some postoperative hypoxia with chest x-ray revealing bibasilar opacities. Atelectasis was favored over an infectious process and she improved with an incentive spirometer. An hCG level was noted to be elevated at 16 and she is notably postmenopausal for approximately 8 years. Work-up also included a CEA that was 1.3, CA125 normal at 13 and CA 19-9 normal at 15. Pathology was consistent with ovarian serous cystadenoma. Follow-up with [employer] as outpatient to discuss pathology and future treatments. At time of discharge she was hemodynamically stable and afebrile and tolerating p.o. She was discharged in stable condition with close primary care follow-up recommended. Updated Medication List Medication Instructions Recorded Confirmed Type atorvastatin 10 mg tablet 10 mg PO HS 05/09/19 03/05/23 History escitalopram oxalate 20 mg tablet 20 mg PO HS 05/09/19 03/05/23 History metoprolol succinate 50 mg 50 mg PO HS 05/09/19 03/05/23 History tablet,extended release 24 hr quetiapine 200 mg tablet 200 mg PO HS 05/09/19 03/05/23 History verapamil 120 mg 24 hr 120 mg PO HS 05/09/19 03/05/23 History capsule,extended release melatonin 10 mg tablet 10 mg PO HS PRN Sleep 08/05/22 03/05/23 History Hospital Stay Data Consultations 03/05/23 21:11 ED Decision to Admit Stat 03/06/23 01:08 Consult General Surgery Routine 03/06/23 17:32 Consult Gynecology Routine 03/11/23 10:41 Consult Neurology Routine Procedures Performed Operation Date: 03/07/23 07:30 Actual Procedures p Laparoscopic Cholecystectomy(Not Applicable) - Clifton Greenberg MD s Laparoscopic Left Salpingo-oopherectomy, Pelvic Washings, and Lysis of Adhesions(Not Applicable) - Rosalinda Vázquez MD, PhD Diagnostic Imagining Performed 03/05/23 17:31 US gallbladder Stat 03/05/23 21:09 US pelvic complete Stat US transvaginal Stat 03/05/23 21:30 US renal/blad retro comp Stat 03/05/23 22:56 CT Abd and Pelvis [CT abd pelvis wo con] Stat 03/07/23 17:28 MRI Brain [MR brain wo/w con] Stat Pending Results Patient Have Any Pending Studies at Discharge: Yes (pathology) Discharge Instructions Given to Patient (Per Discharging Provider) OBGYN Instructions ACTIVITY RECOMMENDATIONS: * Rest the first 2-3 days. You should be back to your normal activity levels by day 3. * No heavy lifting for 4 weeks (no more than 25 pounds- including pushing and pulling). * No intercourse, tampons or douching for 4 weeks. * You may shower the next day. * Do not drive anytime that you are taking narcotic pain medicines. RETURN TO SCHOOL/WORK: * May return to school or work after 2 weeks. DIET: Nausea may occur in the immediate post-operative period. If so, take clear liquids such as tea, bouillon, apple juice until all nausea has subsided, then resume usual diet. MEDICATIONS: Resume previous medications unless instructed otherwise by your surgeon. Ibuprofen and Tylenol have been prescribed for you. Please follow instructions on your prescription bottle. It is encouraged that you take Tylenol and Ibuprofen around the clock for the first 72 hours after your surgery. You may take Simethicone 80 mg (over the counter Gas X) with Tylenol and Ibuprofen to help with pain related to the gas used to inflate your abdomen during surgery. Tramadol has also been prescribed for breakthrough pain (pain unrelieved by above measures), this can typically be discontinued after your third post operative day. This is a narcotic medication. Please do not drive operate machinery while taking this medication. SPECIAL CARE INSTRUCTIONS: * Check temperature twice daily for one week. report any elevation over 101 degrees. * You may experience some vagina spotting and/or bleeding. This is normal for 1-2 weeks and should not be heavier than a normal period. If it is unusual in amount, call your physician. * Post-operative discomfort may consist of a sore throat, a "bloated" feeling and pain in the shoulders. these are normal symptoms, which usually only last for 2-3 days. * Incisions are covered with a liquid bandage (Dermabond), this will come off by itself over several days. You may gently peel and remove the remainder after 2 weeks. FOLLOW UP VISIT: Call [facility] OBGYN office for a post-operative2 week visit if not already scheduled.
== END 2023-03-12 13:46 | disposition home or self-care (01) | DRG 418 ==
LOC: 2N 17:11 → ED 17:11 → SUATTDRO 22:58 → 2N 03-06 00:09 → SUATTDRO 03-08 08:48